=== PATIENT | male | born 1960 | race Caucasian/White ===

== ENCOUNTER 2024-07-13 06:17 | Day surgery (SDC) | payer OTHER, SELFPAY ==
[2024-07-13] VITALS (15 sets, daily range): BP systolic 107–124; BP diastolic 76–92; BMI 27.3
[2024-07-13] MEDS: LOW STRENGTH ASPIRIN 81 MG PO (06:49)
[2024-07-13] MEDS: NSS 259 ML IV (07:25)
--- NOTE | 2024-07-13 16:04 | ITS.CL.CATH ---
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
Cardiac Catheterization
Procedure Report:
LEFT AND RIGHT HEART CATHETERIZATION
Date of Procedure: July 13, 2024
Referring: Jas Mccoy
PROCEDURES:
1. Left heart catheterization, coronary angiogram.
2. Right heart catheterization.
3. Ultrasound-guided access
INDICATION: Assess invasive hemodynamics and rule out obstructive CAD prior to mitral valve intervention.
ACCESS:
1. Right radial artery, 6 Pakistani sheath, under ultrasound guidance.
2. Right common femoral vein, 6 Pakistani sheath, under ultrasound guidance using a micropuncture kit.
Ultrasound was utilized for vascular access. The radial artery and femoral vein were visualized under ultrasound, and the vessels were patent and artery was pulsatile. An image was stored permanently in the patient's medical record. Under direct
ultrasound guidance, a 6 Pakistani sheath was inserted into the artery and vein using a micropuncture kit through a modified Seldinger technique.
HEMODYNAMICS : (mmHg)
RA (m) : 11
RV (s/d,m) : 36/7, 13
PA (s/d, m) : 40/23, 29
PCWP (m) : 23 with V waves up to 40mmHg
PA saturation: 68.3% on room air
AO saturation: 95.0% on room air
RA saturation: 64.9% on room air
Cardiac Output : 4.8 L/min
Cardiac Index : 2.35 L/min/m-2
Systemic vascular resistance: 1266 dsc^(-5)
Pulmonary vascular resistance: 1.25 riley unit
AO (s/d) : 102/79
LV (s/d) : 104/10
LVEDP : 15
CORONARY FINDINGS
DOMINANCE: Right
LEFT MAIN: Left main artery is a large-caliber short vessel which gives rise to the left anterior descending artery and the left circumflex artery. There is minimal luminal irregularities.
LEFT ANTERIOR DESCENDING: The left anterior descending artery is a large-caliber vessel which gives rise to multiple small to medium caliber diagonal branches as it courses to the anterior interventricular groove and wraps around the apex. There is
minimal luminal irregularities.
CIRCUMFLEX: The left circumflex artery is a medium to large caliber vessel which gives rise to 1 large caliber branching obtuse marginal branch. There is minimal luminal irregularities.
RIGHT CORONARY ARTERY: The right coronary artery is a large-caliber, dominant vessel which gives rise to the right posterior descending artery and the right posterolateral system. There is minimal luminal irregularities.
SEDATION: 43 minutes of procedural sedation was utilized. An independent medical coordinator pesticide use was present to assist with and help manage the patient's level of consciousness and physiologic status.
RADIATION SUMMARY: Fluoro Time (min): 2.5, Dose (mGy): 235.01, DAP (Gy.cm2) : 19.4
Closure Device: 1. Vascular band over right radial artery, 11 cc of air.
2. Manual pressure was held over the right femoral venous access site with successful hemostasis.
CONCLUSIONS
1. No obstructive coronary artery disease.
2. Mildly elevated right left-sided filling pressures with normal cardiac output.
RECOMMENDATIONS
1. Wean radioman per protocol
2. Continued optimization of cardiovascular risk factors.
3. Patient is scheduled to proceed with mitral valve intervention with CT surgery later this month.
Copy to: Jordy Jurado
Etta Bautista MD, FACC, [facility]
== END 2024-07-13 12:00 | disposition home or self-care (01) ==
LOC: CATH 06:17
PROVIDERS: ATTENDING PHYSICIAN Internal Medicine Interventional Cardiology; FAMILY PHYSICIAN Family Medicine; OTHER PHYSICIAN Internal Medicine Cardiovascular Disease
DX: R06.02 Shortness of breath (principal); I34.0 Nonrheumatic mitral (valve) insufficiency; I34.1 Nonrheumatic mitral (valve) prolapse; E03.9 Hypothyroidism, unspecified; I48.0 Paroxysmal atrial fibrillation; Z79.890 Hormone replacement therapy; Z79.899 Other long term (current) drug therapy
CPT/HCPCS: 99152; 99153; 76937; 93005; 93460; C1894; Q9967

== ENCOUNTER → 2024-07-20 15:03 | Outpatient (REF) | payer OTHER, SELFPAY | LOC: RAD 15:03 | PROVIDERS: ATTENDING PHYSICIAN Thoracic Surgery (Cardiothoracic Vascular Surgery); FAMILY PHYSICIAN Family Medicine | DX: I34.0 Nonrheumatic mitral (valve) insufficiency (principal); Z01.810 Encounter for preprocedural cardiovascular examination | CPT/HCPCS: 71275; 74174; Q9967 ==

== ENCOUNTER 2024-07-24 05:03 | Inpatient (IN) | payer OTHER, SELFPAY ==
[2024-07-11 08:10] VITALS: BMI 29.9
[2024-07-11 08:44] LABS: Urine Albumin 1+ (Neg - Trace); Urine Bilirubin Negative (Negative); Urine Character Clear (Clear); Urine Color Yellow; Urine Glucose Negative (Negative); Urine Ketone Negative (Negative); Urine Leukocyte Negative (Negative); Urine Nitrite Negative (Negative); Urine Occult Blood Negative (Negative); Urine Specific Gravity 1.025 (<1.030); Urine Urobilinogen Negative (Neg - 1+)
[2024-07-11 08:51] LABS: PT 14.7 Sec (11.4-14.6)
[2024-07-11 08:52] LABS: APTT 33.2 Sec (23.4-35.0)
[2024-07-11 09:08] LABS: ALT (SGPT) 21 U/L (0-50); AST (SGOT) 21 U/L (17-59); Albumin 4.2 g/dl (3.5-5.0); Alkaline Phosphatase 66 U/L (38-126); Blood Urea Nitrogen 26 mg/dl (9-20); Carbon Dioxide 26 mmol/L (22-30); Chloride 104 mmol/L (98-107); Direct Bilirubin 0.2 mg/dl (0.0-0.4); Estimated Creatinine Clearance 82 ml/min; Glucose 108 mg/dl (70-99); Potassium 4.3 mmol/L (3.5-5.1); Sodium 138 mmol/L (135-145); Total Bilirubin 1.4 mg/dl (0.2-1.3); Total Protein 6.9 g/dl (6.3-8.2); eGFR > 60.00
[2024-07-11 09:09] LABS: Hematocrit 45.2 % (39.0-52.0); Hemoglobin 14.8 g/dL (13.0-18.0); Mean Corp Hgb Conc. 32.7 g/dL (33.0-37.0); Mean Corpuscular Hgb 27.6 pg (27.0-31.0); Mean Corpuscular Volume 84.3 fL (80.0-94.0); Mean Platelet Volume 10.3 fL (7.4-10.4); Platelet Count 209 10^3/uL (130-400); Red Blood Cell Count 5.36 10^6/uL (4.70-6.10); Red Cell Dist. Width 14.3 % (11.5-14.5); White Blood Cell Count 9.8 10^3/uL (4.8-10.8)
[2024-07-11 09:11] LABS: Urine Bacteria Few (Negative); Urine Red Blood Cell 0-2 /HPF (0-2); Urine Squamous Cell 0-2 /LPF (Few); Urine White Cell 0-2 /HPF (0-5)
--- NOTE | 2024-07-11 09:49 | CM ---
Chart reviewed. Met with the patient in PAT. Reviewed preoperative and postoperative instructions and restrictions, along with showering instructions. Gave patient 2 soaps. Patient is agreeable to a home visit by CT Transitional RN. Patient is
independent of ADLS, lives with his in a 2 STH, 1 YULIYA, 0 DME. Plan is for the patient to return home with CT Transitional RN.
[2024-07-11 10:11] LABS: % Basophils 0.5 % (0-2); % Eosinophils 1.8 % (0-6); % Immature Granulocytes 0.2 % (0-0.5); % Lymphocytes 60.7 % (20.5-51.1); % Monocytes 5.4 % (1.7-9.3); % Neutrophils 31.4 % (42.2-75.2); Absolute Basophils 0.1 10^3/uL (0-0.2); Absolute Eosinophils 0.2 10^3/uL (0-0.7); Absolute Monocytes 0.5 10^3/uL (0.1-0.6); Absolute Neutrophils 3.1 10^3/uL (1.4-6.5); Nucleated Red Blood Cells % 0 % (-)
[2024-07-11 10:43] LABS: Glycohemoglobin (HgbA1c) 5.5 % (4.0-5.6)
[2024-07-24] VITALS (13 sets, daily range): BP systolic 93–126; BP diastolic 54–75; BMI 29.1
[2024-07-24] MEDS: BACTROBAN 2% OINTMENT 1 APPLIC NASAL ×2 (05:43→19:02)
[2024-07-24] MEDS: LOPRESSOR 25 MG PO (05:43)
[2024-07-24] MEDS: PROTONIX 40 MG PO (05:43)
[2024-07-24] MEDS: MAGNESIUM OXIDE 500 MG PO (05:43)
--- NOTE | 2024-07-24 05:59 | PTCARENOTE ---
admitted pt innto [id number]. pt endorses 2 showers at home and NPO since midnight. full admission and med rec completed. pt clipped, washed with CHG. all questions answered. awaiting CVOR
--- NOTE | 2024-07-24 05:59 | W.CVOR.SURPR ---
CVOR Surgeon Immed Pre Op
-
I have examined this patient prior to performance of the scheduled procedure.
The patient's condition is unchanged from the time of the dictated/written History and
Physical and the patient is able to undergo the scheduled procedure.
HP MVr / TVr / MAZE / Clip
[2024-07-24 07:36] LABS: Urine Albumin Negative (Neg - Trace); Urine Bilirubin Negative (Negative); Urine Character Clear (Clear); Urine Color Yellow; Urine Glucose Negative (Negative); Urine Ketone Negative (Negative); Urine Leukocyte Negative (Negative); Urine Nitrite Negative (Negative); Urine Occult Blood Negative (Negative); Urine Specific Gravity 1.015 (<1.030); Urine Urobilinogen Negative (Neg - 1+)
[2024-07-24 07:38] LABS: ACT+ - POC 131 Seconds (82-134)
[2024-07-24 08:52] LABS: B.E. - POC -1.7 mmol/L; Glucose - POC 123 mg/dl (70-99); HCO3 - POC 24 mmol/L (21-28); Hematocrit - POC 40 % PCV (42-52); Hemodilution- POC No; Hemoglobin Calculated - POC 13.8; Ionized Calcium - POC 1.16 mmol/L (1.15-1.33); Lactate - POC 0.47 mmol/L (0.36-0.75); O2 Saturation %Calculated-POC 99.7 % (94-98); PCO2 - POC 41 mmHg (35-48); PO2 - POC 205 mmHg (83-108); POC Comment PRE; Potassium - POC 4.1 mmol/L (3.5-5.1); Sodium - POC 141 mmol/L (136-145); Specimen Type - POC Arterial; pH - POC 7.37 (7.35-7.45)
[2024-07-24 10:01] LABS: ACT+ - POC 882 Seconds (82-134)
[2024-07-24 10:10] LABS: B.E. - POC 2.8 mmol/L; Glucose - POC 159 mg/dl (70-99); HCO3 - POC 32 mmol/L (21-28); Hematocrit - POC 35 % PCV (42-52); Hemodilution- POC Yes; Hemoglobin Calculated - POC 11.8; Lactate - POC 0.69 mmol/L (0.36-0.75); O2 Saturation %Calculated-POC 99.7 % (94-98); PCO2 - POC 73 mmHg (35-48); PO2 - POC 240 mmHg (83-108); POC Comment CPB; Sodium - POC 139 mmol/L (136-145); Specimen Type - POC Arterial; pH - POC 7.25 (7.35-7.45)
[2024-07-24 10:27] LABS: ACT+ - POC 701 Seconds (82-134)
[2024-07-24 11:07] LABS: ACT+ - POC > 1003 Seconds (82-134)
[2024-07-24 11:07] LABS: ACT+ - POC > 1003 Seconds (82-134)
[2024-07-24 11:07] LABS: ACT+ - POC 537 Seconds (82-134)
[2024-07-24 11:27] LABS: Glucose - POC 125 mg/dl (70-99); HCO3 - POC 22 mmol/L (21-28); Hematocrit - POC 34 % PCV (42-52); Hemodilution- POC Yes; Hemoglobin Calculated - POC 11.5; Ionized Calcium - POC 1.03 mmol/L (1.15-1.33); Lactate - POC 2.06 mmol/L (0.36-0.75); O2 Saturation %Calculated-POC 99.8 % (94-98); PCO2 - POC 38 mmHg (35-48); PO2 - POC 237 mmHg (83-108); POC Comment WARM; Potassium - POC 5.7 mmol/L (3.5-5.1); Sodium - POC 141 mmol/L (136-145); Specimen Type - POC Arterial; pH - POC 7.37 (7.35-7.45)
[2024-07-24 11:48] LABS: ACT+ - POC 129 Seconds (82-134)
--- NOTE | 2024-07-24 11:50 | W.PN.CT.SURG ---
CT Surgery Operative Note
-
CARDIAC SURGERY OPERATIVE REPORT
Preoperative Diagnosis: Severe mitral valve insufficiency symptomatic with paroxysmal atrial fibrillation
Postoperative Diagnosis: Same
Procedure(s) Performed:
1. Right mini thoracotomy with right femoral artery and vein cannulation under JJ guidance
2. Radical mitral valve repair (imbrication of P2 onto P1 on cleft closure/free margin remodeling at P2 and P3 with placement of 2 [place]-Zechariah cords and a 34 mm band annuloplasty)
3. Simple tricuspid valve repair [30 mm band annuloplasty
4. Modified left atrial maze, open surgical using cryo
5. Left atrial appendage exclusion [35 mm clip]
6. Placement temporary ventricular pacing wires
7. Trans esophageal echocardiography
Date of Surgery: 07/24/2024
Comorbidities:
1. 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
2. Moderate tricuspid valve insufficiency due to annular dilatation
3. Paroxysmal atrial fibrillation
4. BPH
5. Hypothyroidism
6. Thyroid cancer status post thyroidectomy
7. GERD
Attending Surgeon: Jordy Corley MD, MS
Assistants: Jordy Ko PA-C (present and necessary for retraction, suctioning, exposure, suture management, wound closure, etc. under my direction)
Anesthesiology: Avinash Stovall MD and Cesar Boo CRNA
Scrub and Circulating RNs: Sha Jordan RN, Joan Guan RN
Welder First Class: Yousuf Alvarado CCP
Anesthesia: GETA
EBL: per perfusion records
Products: none
CPB Time: 162 minutes
Aortic Cross Clamp Time: 130 minutes
Indication(s) for Procedures: This is a 63-year-old male who is otherwise healthy who came to me as a second opinion from [facility]. He has severe mitral valve insufficiency secondary to degenerative disease with a flail segment of P2 and
multiple torn cords. He had torrential mitral valve insufficiency and was symptomatic in the form of shortness of breath. He also was diagnosed with paroxysmal atrial fibrillation approximately 4 to 5 years ago and had secondary tricuspid valve
insufficiency due to annular dilatation. Given the symptoms, mildly dilated LV, atrial fibrillation, he met class I indication for mitral valve repair.
Mitral Valve Description: Flail segment of the P2 scallop favoring P1 side, large cleft between P1 and P2 and P2 and P3, multiple torn cords with prolapsing of P2 scallop thickening of the leaflets towards P2 and P1, asymmetrical annular dilatation.
Implants:
1. 34 mm Oropeza annuloplasty band, physio flex, serial #[id number]
2. 30 mm Medtronic Triad tricuspid band, serial number [id number]
3. 35 mm left atrial appendage clip, serial #[id number]
4. 2 pairs of CV 4 [place]-Zechariah sutures
5. Multiple 5-0 Prolene sutures
Specimen:
1. none
Findings: His left ventricular ejection fraction preoperatively was preserved at approximately 60% with no significant regional wall motion abnormalities. His LV was on the higher end of normal, his left atrium was severely dilated. Following
surgery his EF did decrease a little bit to approximately 50% with no new regional wall motion abnormalities. RV function was mildly depressed. His mitral valve had a very large flail segment of the entire P2 scallop with large clots on either
side. I imbricated P2 onto P1 and then did free margin remodeling of P2 onto P3 1 set of CV 4 [place]-Zechariah cord was placed onto the anterior lateral papillary muscle heads and another set was placed onto the posterior medial papillary muscle head and
this was used to anchor the P2 scallop into place. A total of 10 nonpledgeted 2 Ethibond sutures were placed from trigone to trigone securing a 34 mm band annuloplasty. Dynamic inflation of the LV demonstrated a posterior coaptation margin and
good competency of the valve. A full left atrial maze was performed using cryo to isolate the entire posterior wall, performed the left atrial appendage lesion and the coronary sinus and mitral annular overlapping lesions. The left atrial
appendage was verified to be free of any thrombus or debris preoperatively and was clipped through the transverse sinus using a 35 mm device. Visualization inside the GAVI demonstrated good occlusion of the left atrial appendage. The tricuspid
valve was repaired with simple band annuloplasty using a total of 9 nonpledgeted 2 Ethibond sutures starting at the midpoint of the septal leaflet going counterclockwise towards the anterior septal commissure. There is no residual cuspid valve
insufficiency. There is no residual mitral valve insufficiency coming off of cardiopulmonary bypass. There was a mean gradient of 1 across the valve and no systolic anterior motion of the leaflets. He was placed on 3-5 of dobutamine drip, did not
require any blood products cardiac index varied between 2.1 and 2.9.
Description of Procedure: The patient was brought to the operating room and placed supine in the table with their right side bumped up and right arm down. Arterial and central access was performed by anesthesiology. The patient was prepped from chin
to toes in the typical sterile fashion. Trans esophageal evaluation of cardiac function and all valvular structures was conducted. Before commencing, a time out was performed by all members of the team. All were in agreement with the procedure and
laterality and I proceeded. A small right groin incision was made to expose the common femoral artery and vein. A total of 50,000 units of heparin was given. A 5-6 cm right lateral thoracotomy was performed over the 4th intercostal space verified by
visualization of the hilum. The common femoral artery and vein were cannulated under transesophageal guidance using open Seldinger technique. The arterial line was verified to have an appropriate bounce and pressure correlating with testing. Once
the ACT was above 400, retrograde autologous priming was done and we commenced cardiopulmonary bypass. Target core temperature was 34�C.
Carbon dioxide was used to flood the field. The course of the phrenic nerve was identified to prevent injury. The pericardium was opened and two stay sutures were placed to facilitate a ``pericardial table.�� The oblique sinus was developed followed
by the inter atrial groove. An antegrade root vent was inserted and secured with a pursestring suture. The pump flow and mean arterial pressure were lowered and an aortic cross clamp was applied to the ascending aorta. A total of 1.2L initial dose
of Antegrade cardioplegia was delivered. We had rapid electro myocardial quiescence at 300 cc of cardioplegia. The ventricle was monitored for distension by echocardiogram during this time. The left atrium was incised and enlarged. A left atrial
lift retractor was placed. The mitral valve was inspected. Cryo lines were then performed starting at the coronary sinus then the annular overlapping mitral line followed by the roof and floor connecting it to the left atrial appendage os. The
mitral valve was repaired as described above. The left atrial lift was then removed and the left atrial appendage was clipped through the transverse sinus and then verified to be occlusive looking inside the left atrium. The left atriotomy was
closed with 3-0 prolene in a running fashion leaving a ventricular vent in place to de-air. After filling the heart, the vent was removed and the prolene was secured with a corknot. Vesseloops were then placed around the SVC and IVC and the femoral
venous cannula was then pulled back into the IVC. Eyedrops echo was placed up into the SVC and the snare was then encircled. Horizontal right atriotomy was then performed and a new right atrial lift was placed exposing the tricuspid valve.
Tricuspid valve was then repaired as described above using a simple annuloplasty. The right atriotomy was then closed in 2 layers with 5-0 Prolene and secured with a micro core knot. The snares were then released on the SVC and IVC. Unipolar
ventricular pacing wire was placed on the base of the right ventricle. The patient was placed into Trendelenburg position and pump flows were lowered. The clamp was slowly removed with the root vent turned on. De-airing maneuvers were performed. We
started to rewarm with a target of 36.5�C.
As the heart recovered, the mitral valve and ventricular function were assessed under transesophageal echocardiogram. The LV vent and root vents were removed. Once weaning parameters were satisfactory, cardiopulmonary bypass flow was lowered until
we were off cardiopulmonary bypass the mitral valve was inspected again. All surgical sites were inspected for hemostasis and appeared appropriate. The lines were clamped and the arterial was relocated to the venous cannula to give back volume. A
test dose of protamine was delivered and patient was monitored for any adverse reactions followed by complete protamine dosing. The femoral vessels were decannulated and repaired as indicated. The pericardium was approximated with 2-0 ethibond
sutures secured with corknots. One 19F Lanre drain remained in the pleural space and threaded into the oblique sinus of the pericardium. There was an excellent palpable distal to the POKER IN cannulation site. Local analgesia was injected to the
thoracotomy. The rib space was approximated with #2 ethibond suture. The incision was closed in layers in a running fashion.
All instrument, sponge, and needle counts were confirmed to be correct x 2 at the end of the operation. The patient was transferred to the cardiac intensive care unit in critical but stable condition.
I, Dr. Jordy Corley, was present, scrubbed for, and performed all critical elements of this procedure.
Jordy Corley MD, MS
Cardiothoracic Surgeon
[facility]
This dictation was created using the Blockchain dictation system. Please excuse any grammatical, typographical, or 'sound alike' errors
[2024-07-24] MEDS: NEURONTIN PO ×2 (11:58→15:23)
--- NOTE | 2024-07-24 11:58 | CON.INTV ---
Consultation
Consultation Request
Date/Time Consultation Requested: 07/24/2024 - 112
Date/Time Consultation Performed: 07/24/2024 - 1157
Requesting Provider: Fang Cordero PA-C
Performing Provider: Dr. Streeter
Reason for Consultation: s/p radical MV repair + LA-MAZE
Medical History
-
Chief Complaint: Elective MV + TV repair
History of Present Illness:
63-year-old male non-smoker with a past medical history of nonrheumatic mitral valve + tricuspid valve regurgitation. Patient known to the cardiothoracic surgery service with last visit on 07/02/[address] Corley. He had gone to see us here at
after having seen the doctors at [facility]. JJ in April 2024 shows a very large prolapsed segment at the posterior MV leaflet with a suspected flail segment and a large regurgitant jet originating mostly from the P1 P2 scallops, with a
dilated LA and moderate degree of tricuspid valve insufficiency. He was diagnosed with paroxysmal A-fib about 4-5 years ago and was never placed on AC. He did undergo a left heart catheterization on 07/13/2024 showing no evidence of obstructive
coronary artery disease with mildly elevated eft-sided filling pressures with normal cardiac output (LVEDP: 15 mmHg). Risks and benefits of a cardiothoracic intervention were discussed and the patient has agreed to an intervention. Today he
underwent a right minithoracotomy with a radical mitral valve repair, simple tricuspid valve repair, modified left atrial Maze procedure and a left atrial appendage exclusion with a 35mm clip. There were no immediate complications and he was
transferred to the CVICU for postoperative care with purchasing engineer services consulted for additional recommendations/management.
When I saw the patient he was intubated on SIMV at 14/550/40%/8, with PSV of 5. PIP was 24 cmH2O, VTe 551 mL and breathing at 14 breaths/min. Currently on dobutamine drip at 3 mcg/kg/min, and insulin drip at 0.8 units/hr. He has a mediastinal
chest tube x 1. Heart rate 55, BP via NIBP: 103/71, BP via A-line: 116/65, PAP: 42/20, saturating 98% and CO/CI: 4.05/2.01.
PMHx: Hypothyroidism, enlarged prostate, mitral valve regurgitation, GERD, history of thyroid cancer s/p resection, A-fib on flecainide
PSHx: Right shoulder tear surgery, UroLift (2022), thyroid cancer surgery
Past Medical History
Past Medical History: Other (Above as per HPI)
Past Surgical History: Other (Above as per HPI)
Social History
Tobacco: Non-smoker
Alcohol: None
Drug: None
Personal:
Living: With Family
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
Family History
Family History: Cancer (Father + mother) and Diabetes (Sibling)
Allergies / Home Medications
Allergies
Allergy/AdvReac Type Severity Reaction Status Date / Time
No Known Allergies Allergy Verified 07/06/24 14:15
Home Medications
�Medication �Instructions �Recorded �Confirmed �Last Taken �Type
levothyroxine 100 mcg tablet 100 mcg PO DAILY Thyroid 01/30/10 07/24/24 07/23/24 08:00 History
(Synthroid)
aspirin 81 mg tablet,delayed 81 mg PO DAILY Blood Clot 03/30/23 07/24/24 07/23/24 08:00 History
release Prevention/Tx
flecainide 50 mg tablet 50 mg PO BID Heart 03/30/23 07/24/24 07/23/24 18:00 History
Disease/Condition
ibuprofen 600 mg tablet 600 mg PO DAILY Pain 03/30/23 07/24/24 07/21/24 08:00 History
psyllium husk 0.4 gram capsule 0.4 g PO BID Constipation 03/30/23 07/24/24 07/23/24 18:00 History
(Metamucil)
alfuzosin 10 mg tablet,extended 10 mg PO DAILY Urinary Issue 07/06/24 07/24/24 07/23/24 18:00 History
release 24 hr
finasteride 5 mg tablet 5 mg PO DAILY Urinary Issue 07/13/24 07/24/24 07/21/24 History
0800
Review of Systems
-
Unable to Obtain full review of systems at this time due to: Patient Intubation
Vitals / Labs / Diagnostic Testing
Vital Signs
Temp Pulse Resp BP Pulse Ox
98.0 F 53 15 111/74 98
07/24/24 17:00 07/24/24 17:05 07/24/24 17:05 07/24/24 17:02 07/24/24 17:05
Lab Data
07/24/24 16:00
07/24/24 12:11
Laboratory Results
07/24/24 07/24/24
12:11 16:30
PT 18.3 H
INR 1.49
APTT 32.0
pH 7.33 L Cancelled
pCO2 45 Cancelled
pO2 73 L Cancelled
HCO3 23.7 Cancelled
O2 Delivery Level Cancelled
Diagnostic Testing:
Physical Exam
-
HEENT: Normocephalic, Anicteric and Other (ETT in place)
Cardiovascular: S1/S2 and Peripheral Edema (negative)
Respiratory: Wheeze (negative), Rales (negative), Rhonchi (negative), Non-Labored Respirations and Other (Mechanical breath sounds heard bilaterally)
GI: Soft, Non Distended, Non Tender and Normal Bowel Sounds
Skin: Other (Linear incision seen across right lateral chest wall with no exsanguination)
General: Respiratory Distress (negative), Comfortable, Chills (negative) and Sweats (negative)
Assessment
-
Assessment: 63-year-old male non-smoker with a past medical history of nonrheumatic mitral valve + tricuspid valve regurgitation. Patient known to the cardiothoracic surgery service with last visit on 07/02/[address] Corley. He had gone to see us
here at after having seen the doctors at [facility]. JJ in April 2024 shows a very large prolapsed segment at the posterior MV leaflet with a suspected flail segment and a large regurgitant jet originating mostly from the P1 P2
scallops, with a dilated LA and moderate degree of tricuspid valve insufficiency. He was diagnosed with paroxysmal A-fib about 4-5 years ago and was never placed on AC. He did undergo a left heart catheterization on 07/13/2024 showing no evidence
of obstructive coronary artery disease with mildly elevated eft-sided filling pressures with normal cardiac output (LVEDP: 15 mmHg). Risks and benefits of a cardiothoracic intervention were discussed and the patient has agreed to an intervention.
On 07/24/2024 he underwent a right minithoracotomy with a radical mitral valve repair, simple tricuspid valve repair, modified left atrial Maze procedure and a left atrial appendage exclusion with a 35mm clip. There were no immediate complications
and he was transferred to the CVICU for postoperative care with purchasing engineer services consulted for additional recommendations/management.
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
Impression:
#Severe mitral valve insufficiency with paroxysmal atrial fibrillation s/p right minithoracotomy with radical mitral valve repair (POD #0)
#Moderate tricuspid valve regurgitation s/p simple tricuspid valve repair with 30 mm band annuloplasty (POD #0)
#Paroxysmal A-fib not on AC s/p modified left atrial maze cryo + left atrial appendage exclusion with 35mm clip placement (POD#0)
#Acute anemia due to above
#Acute thrombocytopenia due to above
#History of thyroid cancer s/p resection
#GERD
#Enlarged prostate
#Hypothyroidism
Plan:
Ventilator settings reviewed
FiO2 will be weaned to maintain SpO2 >90-94%
Minute ventilation will be adjusted
Arterial blood gases will be monitored
Spontaneous breathing trial will be attempted with hopeful extubation after anesthesia/sedation wear off
prn nebulized bronchodilators - not currently bronchospastic
Pulmonary artery catheter parameters will be followed
Pressors/antihypertensive/inotropes/diuretics will be provided as needed
Maintain MAP>65
Replete electrolytes with K>4, Mg>2
Monitor chest tube output (mediastinal chest tube x 1)
Monitor hemoglobin
Monitor platelet count and coags
Transfuse blood products as needed to maintain Hb>7g/dL, plt>50k (given post-operative status)
CT surgery managing chest tubes
Monitor blood sugar to maintain euglycemia with goal BG 110-140
Insulin drip per protocol
Aspiration precautions
VAP prevention protocol
DVT prophylaxis
Early nutrition
Early mobilization
Critical care statement: A total of 41 minutes of critical care time was provided for this patient today. This includes management of ventilator, spontaneous breathing trial, arterial blood gases, pressors, of unstable vital signs, evaluation of the
patient at bedside, reviewing the patient's pertinent medical records including radiographs, microbiology, laboratory evaluations, and discussion with primary team and critical care nursing.
[2024-07-24] MEDS: SYNTHROID PO (11:59)
[2024-07-24] MEDS: PROSCAR PO (11:59)
[2024-07-24 12:05] LABS: B.E. - POC -2.8 mmol/L; Glucose - POC 96 mg/dl (70-99); HCO3 - POC 23 mmol/L (21-28); Hematocrit - POC 35 % PCV (42-52); Hemodilution- POC Yes; Hemoglobin Calculated - POC 11.8; Ionized Calcium - POC 1.27 mmol/L (1.15-1.33); Lactate - POC 2.21 mmol/L (0.36-0.75); O2 Saturation %Calculated-POC 97.9 % (94-98); PCO2 - POC 40 mmHg (35-48); PO2 - POC 106 mmHg (83-108); POC Comment POST; Potassium - POC 4.3 mmol/L (3.5-5.1); Sodium - POC 145 mmol/L (136-145); Specimen Type - POC Arterial; pH - POC 7.36 (7.35-7.45)
--- NOTE | 2024-07-24 12:14 | CM ---
pt in OR today, cm to follow
[2024-07-24 12:17] LABS: Glucose - Point of Care 109 mg/dl (70-99)
[2024-07-24 12:23] LABS: B.E. - POC 0.3 mmol/L; Glucose - POC 169 mg/dl (70-99); HCO3 - POC 23 mmol/L (21-28); Hematocrit - POC 32 % PCV (42-52); Hemodilution- POC Yes; Ionized Calcium - POC 0.99 mmol/L (1.15-1.33); Lactate - POC < 0.30 mmol/L (0.36-0.75); PCO2 - POC 30 mmHg (35-48); PO2 - POC 354 mmHg (83-108); POC Comment CPB; Potassium - POC 5.4 mmol/L (3.5-5.1); Sodium - POC 140 mmol/L (136-145); Specimen Type - POC Arterial
[2024-07-24 12:23] LABS: Glucose - POC 133 mg/dl (70-99); HCO3 - POC 26 mmol/L (21-28); Hematocrit - POC 32 % PCV (42-52); Hemodilution- POC Yes; Hemoglobin Calculated - POC 10.8; Ionized Calcium - POC 1.04 mmol/L (1.15-1.33); Lactate - POC < 0.30 mmol/L (0.36-0.75); O2 Saturation %Calculated-POC 99.9 % (94-98); PCO2 - POC 50 mmHg (35-48); PO2 - POC 370 mmHg (83-108); POC Comment CPB; Potassium - POC 5.3 mmol/L (3.5-5.1); Sodium - POC 139 mmol/L (136-145); Specimen Type - POC Arterial; pH - POC 7.33 (7.35-7.45)
[2024-07-24 12:31] LABS: B.E. -2.4 mmol/L; HCO3 23.7 mmol/L (21-28); Ionized Calcium 1.24 mMOL/L (1.15-1.33); O2 Saturation % 95.7 % (94-98); PCO2 45 mmHg (35-48); PO2 73 mmHg (83-108); Potassium 4.3 mMOL/L (3.5-5.1); Sodium 135 mMOL/L (136-145); pH 7.33 (7.35-7.45)
[2024-07-24 12:36] LABS: Mixed Venous O2 Saturation 72.7 %
[2024-07-24 12:40] LABS: Hematocrit 37.7 % (39.0-52.0); Hemoglobin 12.5 g/dL (13.0-18.0); Platelet Count 111 10^3/uL (130-400)
[2024-07-24 12:41] LABS: INR 1.49; PT 18.3 Sec (11.4-14.6)
[2024-07-24] MEDS: LR 250 ML IV (12:47)
[2024-07-24] MEDS: NSS 500 IV (12:47)
[2024-07-24] MEDS: ANCEF 10 IV ×2 (12:47→12:48)
[2024-07-24 12:52] LABS: Blood Urea Nitrogen 25 mg/dl (9-20); Estimated Creatinine Clearance 67 ml/min; Glucose 104 mg/dl (70-99)
--- NOTE | 2024-07-24 13:03 | W.PN.CARDCBS ---
Addendum entered and electronically signed by Mt Romero, 07/24/24 21:04:
I saw and examined the patient.
The Script Coordinator's note was reviewed and I agree with the note.
Comment:
Plan:
-s/p radical MV repair, mod TR s/ simple TV repair, MAZE, GAVI clip via R mini thoracotomy 07/24/24
Vent wean per protocol.
Wean Dobutamine
Compensated cv status
Monitor on tele, was on flecainide for hx PAF preop and was not on OAC preop due to low [id number] score; had been on ASA
Discussed with nursing.
Original Note:
Today's Communication / Plan
-
continue post op care
Impression / Plan
-
Primary Senior Interior Designer: Dr. Mccoy
Assessment:
Severe MR with prolapse and flail leaflets/multiple torn chords at P2 s/p radical MV repair, mod TR s/ simple TV repair, MAZE, GAVI clip via R mini thoracotomy 07/24/24
Paroxysmal atrial fibrillation
Flecainide therapy
BPH
Thyroid cancer s/p thyroidectomy
Hypothyroidism
GERD
Plan:
-s/p radical MV repair, mod TR s/ simple TV repair, MAZE, GAVI clip via R mini thoracotomy 07/24/24
-remains intubated, sedated. on patricia hugger
-on dobutamine @3 as RV was sluggish appearing intraop. 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
-CI 1.89
-EKG junctional rhythm. follow on tele. has v wire in place
-hgb 12.5, plts 111K
-plan to continue preadmission flecainide as with history of PAF. was not on OAC preop due to low [id number] score, was on asa
-continue post op care
-d/w nursing
Progress Note - Senior Interior Designer
Subjective
Date of Service: July 24, 2024
intubated, sedated
Objective
Labs:
07/24/24 12:11
Labs
Hgb 12.5 g/dL (13.0-18.0) L 07/24/24 12:11
Hct 37.7 % (39.0-52.0) L 07/24/24 12:11
Plt Count 111 10^3/uL (130-400) L 07/24/24 12:11
PT 14.7 Sec (11.4-14.6) H 07/11/24 08:19
INR 1.10 07/11/24 08:19
APTT 33.2 Sec (23.4-35.0) 07/11/24 08:19
Sodium 138 mmol/L (135-145) 07/11/24 08:19
Potassium 4.3 mmol/L (3.5-5.1) 07/11/24 08:19
BUN 25 mg/dl (9-20) H 07/24/24 12:11
Creatinine 1.1 mg/dL (0.7-1.3) 07/24/24 12:11
Glucose 104 mg/dl (70-99) H 07/24/24 12:11
Vital Signs and I&O:
Vital Signs
Temp Pulse Resp BP Pulse Ox
96.1 F L 50 0 93/54 94
07/24/24 12:10 07/24/24 12:40 07/24/24 12:40 07/24/24 12:16 07/24/24 12:40
Vital Signs
Temp Pulse Resp BP Pulse Ox
96.1 F L 50 0 93/54 94
07/24/24 12:10 07/24/24 12:40 07/24/24 12:40 07/24/24 12:16 07/24/24 12:40
Intake & Output
07/22/24 07/23/24 07/24/24 07/25/24
07:59 07:59 07:59 07:59
Intake Total 76.2 / 76.2
Output Total 75 / 75
Balance 1.2 / .2
Physical Exam
Physical Exam
GEN: No distress, intubated, sedated. on patricia hugger
HEENT: supple, mmm
LUNGS: CTA B/L, no wheezes
CV: Reg, S1/S2, no murmur
ABD: soft, ND
EXT: No cyanosis, clubbing, edema
NEURO: sedated
SKIN: Warm, pink, dry. No rash. R chest dressing c/d/i.
[2024-07-24 13:05] LABS: Glucose - Point of Care 146 mg/dl (70-99)
--- NOTE | 2024-07-24 13:33 | PTCARENOTE ---
Patient received from CVOR at 1210; Sedated and intubated; Junctional rhythm on monitor; VSS; Epicardial V-wire present and insulated, temporary pacemaker settings VVI 40/10/0.8; +2 DP and radial pulses present; Lungs diminished at bases; ETT size 8
positioned and secured at 24 cm right lip; Ventilator settings SIMV 12/550/5/5 FiO2 40%; CTx1 to -20 cm wall suction draining bloody drainage - no air leak, tidaling, or crepitus noted; Hypoactive BS; Saleem catheter in place draining clear, yellow
urine; Right groin puncture site glued, approximated, and ecchymotic - CDI, right groin incision glued, approximated, and ecchymotic - CDI, right lateral chest incision glued, approximated, and ecchymotic - CDI, and right lateral chest puncture
glued, approximated, and ecchymotic - CDI; A-line in right radial artery, Maxi floated to 48 cm in RIJ Cordis - all lines zeroed and level; PIVx1 #18 right hand; Levo/insulin/precedex/dobutamine/cardene infusing; LR Bolus given x1; CVNP Joan C.
notified and aware regarding CI <2; See nursing flowsheets for further details.
CO: 3.80
CI: 1.89
SVR: 1,115
[2024-07-24 14:04] LABS: Glucose - Point of Care 91 mg/dl (70-99)
[2024-07-24] MEDS: VENTOLIN NEBULES 2.5 MG INH (14:18)
--- NOTE | 2024-07-24 14:30 | PTCARENOTE ---
SpO2 dropping to 89-92%; CVNP Joan C. notified and aware - PEEP increased to 8 and nebulizer treatment given by RT; SpO2 now 96-98%
--- NOTE | 2024-07-24 14:39 | W.PN.UPDATE ---
Update Note
Progress Note Update
IV fluids: 1000
Crystalloid: 1000
U.O.: 700
UF: 900
Blood: None
Wires: V
Inotropes: Dobutamine
Pressors: levophed
Sedatives: precedex
NEURO: sedated on precedex, pupils +1mm B/L
RESP: #8OT @25cm> 12/550/40/5 Lungs clear B/L. 2 mediastinal (0cc on arrival) chest tubes to -20cm suction. Sanguineous drainage
CV: RRR +S1, S2, no S3, no rub, no murmur. Dermabond to median sternotomy. RIJ w/[place] locked @ 50cm.
ABD: round, soft, no BS
EXT: no edema, +2/4 DP pulses B/L, no femoral bruit, left radial A-line intact
: Saleem with clear yellow urine
A/P: POD #0 s/p Radical mitral valve repair (imbrication of P2 onto P1 on cleft closure/free margin remodeling at P2 and P3 with placement of 2 [place] cords and a 34 mm band annuloplasty)
JJ: EF approximately 50% with mild global hypokinesis.
- wean and extubate
- Monitor CT and urine output
- Follow up labs and CXR
- Wean levophed for maps >65/SBP goal 90-130
- Continue Dobutamine
- Will start ASA tonight
- Did not receive amio bolus intraop; will continue flecanide.
- EKG pending and will send to cards
- Cards consulted
# acute surgical blood loss anemia-expected
- trend CBC
# Hyperglycemia
- insulin infusion x 24h
# Hyperlipidemia
- resume statin when tolerating PO
[2024-07-24] MEDS: TYLENOL PO (14:54)
[2024-07-24 15:04] LABS: Glucose - Point of Care 95 mg/dl (70-99)
[2024-07-24 16:06] LABS: Glucose - Point of Care 102 mg/dl (70-99)
--- NOTE | 2024-07-24 16:10 | PTCARENOTE ---
RT in room and pt placed on CPAP trial at 1600. ABG's due at 1630
[2024-07-24 16:12] LABS: Hematocrit 38.6 % (39.0-52.0); Hemoglobin 12.9 g/dL (13.0-18.0); Platelet Count 120 10^3/uL (130-400)
[2024-07-24 16:32] LABS: B.E. - POC -1.1 mmol/L; Blood Urea Nitrogen - POC 25 mg/dl (3-120); Chloride - POC 110 mmol/L (96-111); Creatinine - POC 1.14 mg/dl (0.3-1.0); Glucose - POC 130 mg/dl (70-99); HCO3 - POC 24 mmol/L (21-28); Hematocrit - POC 40 % PCV (42-52); Hemodilution- POC Yes; Hemoglobin Calculated - POC 13.4; Ionized Calcium - POC 1.24 mmol/L (1.15-1.33); Lactate - POC 0.94 mmol/L (0.36-0.75); O2 Saturation %Calculated-POC 98.3 % (94-98); PCO2 - POC 40 mmHg (35-48); PO2 - POC 113 mmHg (83-108); Potassium - POC 4.7 mmol/L (3.5-5.1); Sodium - POC 143 mmol/L (136-145); Specimen Type - POC Arterial; pH - POC 7.38 (7.35-7.45)
--- NOTE | 2024-07-24 16:38 | PTCARENOTE ---
EPOC ABG reviewed with SANDER Guillen; RT at bedside; Patient extubated at 1635 and placed on 6L NC
[2024-07-24 17:05] LABS: Glucose - Point of Care 105 mg/dl (70-99)
[2024-07-24] MEDS: LOW STRENGTH ASPIRIN 81 MG PO (17:12)
[2024-07-24 18:08] LABS: Glucose - Point of Care 115 mg/dl (70-99)
[2024-07-24] MEDS: SENOKOT-S 1 TABLET PO (19:03)
[2024-07-24] MEDS: ANCEF 5 IV (19:03)
[2024-07-24] MEDS: DILAUDID 0.5 MG IV ×2 (19:09→23:40)
[2024-07-24 20:06] LABS: Glucose - Point of Care 75 mg/dl (70-99)
--- NOTE | 2024-07-24 20:15 | PTCARENOTE ---
LR bolus given x1; PO Flecainide placed on hold; PRN IV Dilaudid given accordingly for pain with good effect; Patient resting comfortably in bed
CO: 4.35
CI: 2.16
SVR: 1,195
[2024-07-24 21:05] LABS: Glucose - Point of Care 97 mg/dl (70-99)
[2024-07-24] MEDS: NEURONTIN 100 MG PO (21:08)
[2024-07-24] MEDS: TYLENOL 1000 MG PO (21:08)
[2024-07-24] MEDS: DILAUDID 0.25 MG IV (21:51)
[2024-07-24 22:02] LABS: Glucose - Point of Care 97 mg/dl (70-99)
[2024-07-24] MEDS: ROXICODONE 5 MG PO (22:08)
--- NOTE | 2024-07-24 23:00 | PTCARENOTE ---
report received from previous RN, walking rounds done. pt in bed, AAOx4, pt c/o pain at incision site. 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 VSS. junctional rhythm on monitor, HR 50s-60s. epicardial v-wire present and insulated. b/l radial and DP pulses
palpable. heart tones clear. right radial A-line intact. SBP 120s. RIJ cordis/swan intact w KVOs infusing. PAPs 40s/10s. CVP ~10-11. last CI 2.16. Dobut gtt infusing @ 3mcg. b/l breath sounds present and diminished at bases. POX 98% on 2LNC. CT x1
intact to -20 cm wall suction, drainage WNL, no air leak, tidaling, or crepitus present. hypoactive BS present. Insulin gtt infusing per glycemic protocol. gore catheter in place draining CYU, UO adequate. all surgical sites stable. see worklist
for full assessment, VS, and interventions. pt resting comfortably w call amaya in reach.
[2024-07-24 23:38] LABS: Glucose - Point of Care 98 mg/dl (70-99)
[2024-07-25] VITALS (27 sets, daily range): BP systolic 108–133; BP diastolic 50–75; PULSE 59; O2SAT 90; BMI 29.6
[2024-07-25 00:53] LABS: Glucose - Point of Care 100 mg/dl (70-99)
[2024-07-25 02:26] LABS: Glucose - Point of Care 102 mg/dl (70-99)
--- NOTE | 2024-07-25 03:00 | PTCARENOTE ---
no changes in assessment, VSS. pt AAOx4. junctional rhythm 60s. SBP 120s. last CI 2.87. Dobut gtt remains @ 3mcg. POX 98% on 2LNC. CT output and UO WNL. Insulin gtt maintained per protocol. all surgical sites stable. AM labs drawn and sent. pt
sleeping between care.
[2024-07-25 03:15] LABS: Hematocrit 36.7 % (39.0-52.0); Hemoglobin 12.1 g/dL (13.0-18.0); Mean Corpuscular Hgb 28.1 pg (27.0-31.0); Mean Corpuscular Volume 85.2 fL (80.0-94.0); Mean Platelet Volume 10.7 fL (7.4-10.4); Platelet Count 119 10^3/uL (130-400); Red Blood Cell Count 4.31 10^6/uL (4.70-6.10); White Blood Cell Count 16.9 10^3/uL (4.8-10.8)
[2024-07-25 03:21] LABS: Blood Urea Nitrogen 30 mg/dl (9-20); Carbon Dioxide 25 mmol/L (22-30); Chloride 112 mmol/L (98-107); Estimated Creatinine Clearance 73 ml/min; Glucose 106 mg/dl (70-99); Magnesium 2.1 mg/dl (1.6-2.3); Potassium 4.6 mmol/L (3.5-5.1); Sodium 140 mmol/L (135-145); eGFR > 60.00
[2024-07-25] MEDS: ANCEF 5 IV ×2 (04:18→12:02)
[2024-07-25 04:24] LABS: Glucose - Point of Care 96 mg/dl (70-99)
[2024-07-25] MEDS: DILAUDID 0.5 MG IV ×2 (04:37→20:30)
[2024-07-25] MEDS: ROXICODONE 5 MG PO ×4 (04:37→17:10)
--- NOTE | 2024-07-25 05:56 | W.PN.CT ---
Today's Communication / Plan
-
-NAEON
-hemodynamically stable - CI 2.87 - remains on 3
-junctional rhythm postoperatively, flecainide/amio/bb on hold
-UOP: 305ml 12hrs, 735ml 24hrs
-CT med: 90ml 12hrs, 200ml 24hrs
-encourage IS, chest PT, OOB
-PT/OT
-dispo planning
Assessment / Plan
-
s/p mini Thoracotomy, MV Repair with 34mm band, 2 [place]-chords, TV repair with 30mm band, MAZE, LAAE on 07/24/[address] Corley - POD #1
-severe MR with prolapse and flail leaflets/multiple torn chords at P2 s/p MV repair 07/24/24
-mod TR s/p TV repair
-p Afib on flecainide
-BPH
-hypothyroid
-GERD
-thyroid Ca s/p surgery 1992
-urolift 2022
Discussed patient care with: Care Team
Subjective
-
Date of Service: July 25, 2024
Objective Data
-
Lab Results
07/24/24 16:00
07/24/24 12:11
PT 18.3 Sec (11.4-14.6) H 07/24/24 12:11
INR 1.49 07/24/24 12:11
APTT 32.0 Sec (23.4-35.0) 07/24/24 12:11
Vital Signs
Vital Signs
Temp Pulse Resp BP Pulse Ox
97.6 F 53 14 110/70 98
07/24/24 21:00 07/24/24 21:00 07/24/24 21:00 07/24/24 21:00 07/24/24 21:00
CT Intake/Output/Weight
07/24/24 07/24/24 07/25/24
06:59 18:59 06:59
Intake Total 926.3 / 1059.4 133.1 / 1059.4
Output Total 540 / 680 140 / 680
Balance 386.3 / 379.4 -6.9 / 379.4
SaO2: 98
Physical Exam
-
General: Awake, Oriented and AOx3
Cardiovascular: Regular rate & rhythm
Respiratory: Clear and Equal
Sternum: Stable
Incision: Clean and Dry
Extremities: Edema +1
Data Reviewed
-
Lab Results: Results Reviewed
Medications: Active Meds Reviewed
Chest X-Ray: Image Reviewed
Vital Signs / Labs
-
Vital Signs and Labs:
Temp Pulse Resp BP Pulse Ox
97.5 F 66 12 121/66 97
07/25/24 04:00 07/25/24 04:15 07/25/24 04:15 07/25/24 04:00 07/25/24 04:15
07/25/24 02:26
07/25/24 02:26
07/24/24 07/24/24 07/24/24
07:38 08:22 08:24
WBC
RBC
Hgb
Hct
RDW
Plt Count
MPV
PT
pH
pO2
POC ABG O2 Sat (Calc) 99.7 H
Sodium
Chloride
BUN
Glucose
Calcium
Magnesium
POC pH
POC pO2 205 H
POC pCO2
POC HCO3
POC Glucose 123 H
POC Potassium
POC Ionized Calcium
POC Lactate
POC Creatinine
POC ACT+ > 1003 H
POC Hematocrit 40 L
Crossmatch IS Only See Detail
07/24/24 07/24/2425
08:51 09:01 09:42
WBC
RBC
Hgb
Hct
RDW
Plt Count
MPV
PT
pH
pO2
POC ABG O2 Sat (Calc) 99.9 H
Sodium
Chloride
BUN
Glucose
Calcium
Magnesium
POC pH 7.33 L
POC pO2 370 H
POC pCO2 50 H
POC HCO3
POC Glucose 133 H
POC Potassium 5.3 H
POC Ionized Calcium 1.04 L
POC Lactate < 0.30 L
POC Creatinine
POC ACT+ > 1003 H 882 H
POC Hematocrit 32 L
Crossmatch IS Only
07/24/24 07/24/24 07/24/24
09:46 10:12 10:15
WBC
RBC
Hgb
Hct
RDW
Plt Count
MPV
PT
pH
pO2
POC ABG O2 Sat (Calc) 99.7 H 100.0 H
Sodium
Chloride
BUN
Glucose
Calcium
Magnesium
POC pH 7.25 L 7.50 H
POC pO2 240 H 354 H
POC pCO2 73 H 30 L
POC HCO3 32 H
POC Glucose 159 H 169 H
POC Potassium 6.0 H 5.4 H
POC Ionized Calcium 1.10 L 0.99 L
POC Lactate < 0.30 L
POC Creatinine
POC ACT+ 701 H
POC Hematocrit 35 L 32 L
Crossmatch IS Only
07/24/24 07/24/24 07/24/24
10:56 11:45 12:11
WBC
RBC
Hgb 12.5 L
Hct 37.7 L
RDW
Plt Count 111 L
MPV
PT 18.3 H
pH 7.33 L
pO2 73 L
POC ABG O2 Sat (Calc) 99.8 H
Sodium 135 L
Chloride
BUN 25 H
Glucose 104 H
Calcium
Magnesium 3.0 H
POC pH
POC pO2 237 H
POC pCO2
POC HCO3
POC Glucose 125 H
POC Potassium 5.7 H
POC Ionized Calcium 1.03 L
POC Lactate 2.06 H 2.21 H
POC Creatinine
POC ACT+ 537 H
POC Hematocrit 34 L 35 L
Crossmatch IS Only
07/24/24 07/24/24 07/24/24
12:16 13:02 16:00
WBC
RBC
Hgb 12.9 L
Hct 38.6 L
RDW
Plt Count 120 L
MPV
PT
pH
pO2
POC ABG O2 Sat (Calc)
Sodium
Chloride
BUN
Glucose
Calcium
Magnesium
POC pH
POC pO2
POC pCO2
POC HCO3
POC Glucose 109 H 146 H 102 H
POC Potassium
POC Ionized Calcium
POC Lactate
POC Creatinine
POC ACT+
POC Hematocrit
Crossmatch IS Only
07/24/24 07/24/24 07/24/24
16:29 16:56 18:06
WBC
RBC
Hgb
Hct
RDW
Plt Count
MPV
PT
pH
pO2
POC ABG O2 Sat (Calc) 98.3 H
Sodium
Chloride
BUN
Glucose
Calcium
Magnesium
POC pH
POC pO2 113 H
POC pCO2
POC HCO3
POC Glucose 130 H 105 H 115 H
POC Potassium
POC Ionized Calcium
POC Lactate 0.94 H
POC Creatinine 1.14 H
POC ACT+
POC Hematocrit 40 L
Crossmatch IS Only
07/25/24 07/25/24 07/25/24
00:51 02:24 02:26
WBC 16.9 H
RBC 4.31 L
Hgb 12.1 L
Hct 36.7 L
RDW 15.0 H
Plt Count 119 L
MPV 10.7 H
PT
pH
pO2
POC ABG O2 Sat (Calc)
Sodium
Chloride 112 H
BUN 30 H
Glucose 106 H
Calcium 8.0 L
Magnesium
POC pH
POC pO2
POC pCO2
POC HCO3
POC Glucose 100 H 102 H
POC Potassium
POC Ionized Calcium
POC Lactate
POC Creatinine
POC ACT+
POC Hematocrit
Crossmatch IS Only
[2024-07-25] MEDS: SYNTHROID 100 MCG PO (06:08)
[2024-07-25] MEDS: TYLENOL 1000 MG PO ×3 (06:08→20:44)
[2024-07-25 06:16] LABS: Glucose - Point of Care 99 mg/dl (70-99)
--- NOTE | 2024-07-25 07:57 | W.PN.CARDCBS ---
Addendum entered and electronically signed by Les Killian MD 07/25/24 09:21:
I saw and examined the patient.
The Director Of Annual Giving's note was reviewed and I agree with the note.
Comment: Briefly, 63-year-old man past medical history of severe mitral regurgitation who underwent mitral and tricuspid valve repair/maze/left atrial appendage clip on 07/24/2024
He is resting comfortably in the CVICU this morning, reporting some mild pleuritic type chest pain but otherwise feels well
Telemetry reviewed which shows junctional rhythm competing with underlying sinus bradycardia
Would continue to hold metoprolol and flecainide and monitor going forward
Filling pressures are at goal based on invasive hemodynamics and appears euvolemic on exam
Rest per Angy back
Original Note:
Today's Communication / Plan
-
continue post op care
continue dobut
follow rhythm
Impression / Plan
-
Primary Foster Care Case Manager: Dr. Mccoy
Assessment:
Severe MR with prolapse and flail leaflets/multiple torn chords at P2 s/p radical MV repair, mod TR s/ simple TV repair, MAZE, GAVI clip via R mini thoracotomy 07/24/24
Paroxysmal atrial fibrillation
Flecainide therapy
BPH
Thyroid cancer s/p thyroidectomy
Hypothyroidism
GERD
Plan:
-s/p radical MV repair, mod TR s/ simple TV repair, MAZE, GAVI clip via R mini thoracotomy 07/24/24
-on dobutamine @3 as RV was sluggish appearing intraop. likely to continue for additional 24 hours post op
-there was concern for afib by EKG this AM, however appeared more consistent with junctional rhythm. reviewed with EP, felt to be junctional rhythm with rare/intermittent atrial activity conducting with first-degree AV delay. will follow on tele.
holding flecainide and BB. repeat EKG for AM ordered
-hgb 12.1, plts 119K
-was not on OAC preop due to low [id number] score. continue asa
-continue post op care
-d/w nursing and CT surgery BAND TIER
Progress Note - Foster Care Case Manager
Subjective
Date of Service: July 25, 2024
reports some post op pain.
Objective
Labs:
07/25/24 02:26
07/25/24 02:
Labs
Hgb 12.1 g/dL (13.0-18.0) L 07/25/24 02:
Hct 36.7 % (39.0-52.0) L 07/25/24 02:
Plt Count 119 10^3/uL (130-400) L 07/25/24 02:
PT 18.3 Sec (11.4-14.6) H 07/24/24 12:11
INR 1.49 07/24/24 12:11
APTT 32.0 Sec (23.4-35.0) 07/24/24 12:11
Sodium 140 mmol/L (135-145) 07/25/24 02:
Potassium 4.6 mmol/L (3.5-5.1) 07/25/24 02:26
BUN 30 mg/dl (9-20) H 07/25/24 02:26
Creatinine 1.0 mg/dL (0.7-1.3) 07/25/24 02:
Glucose 106 mg/dl (70-99) H 07/25/24 02:26
Vital Signs and I&O:
Vital Signs
Temp Pulse Resp BP Pulse Ox
97.3 F 69 13 116/67 97
07/25/24 07:00 07/25/24 07:00 07/25/24 07:00 07/25/24 07:00 07/25/24 07:00
Vital Signs
Temp Pulse Resp BP Pulse Ox
97.3 F 69 13 116/67 97
07/25/24 07:00 07/25/24 07:00 07/25/24 07:00 07/25/24 07:00 07/25/24 07:00
Intake & Output
07/22/24 07/23/24 07/24/24 07/25/24
07:59 07:59 07:59 07:59
Intake Total 1463.2 / 1463.2
Output Total 1150 / 1150
Balance 313.2 / 313.2
Physical Exam
Physical Exam
GEN: No distress, awake, alert, oriented x3. on supp O2
HEENT: supple, anicteric, mmm, eomi
LUNGS: CTA B/L anterolaterally, no wheezes
CV: Reg with ectopy, S1/S2, no murmur
EXT: No cyanosis, clubbing, edema
NEURO: Gross non-focal
SKIN: Warm, pink, dry. No rash. CT in place
[2024-07-25 08:10] LABS: Glucose - Point of Care 104 mg/dl (70-99)
[2024-07-25] MEDS: VITAMIN C 500 MG PO (08:15)
[2024-07-25] MEDS: PROSCAR 5 MG PO (08:15)
[2024-07-25] MEDS: FEOSOL 325 MG PO (08:15)
[2024-07-25] MEDS: PROTONIX 40 MG PO (08:15)
[2024-07-25] MEDS: LOW STRENGTH ASPIRIN 81 MG PO (08:15)
[2024-07-25] MEDS: NEURONTIN 100 MG PO ×3 (08:16→20:44)
[2024-07-25] MEDS: BACTROBAN 2% OINTMENT 1 APPLIC NASAL ×2 (08:16→20:43)
[2024-07-25] MEDS: MAGNESIUM OXIDE 500 MG PO ×2 (08:16→20:44)
[2024-07-25] MEDS: FLOMAX 0.4 MG PO (08:16)
[2024-07-25] MEDS: LIDOCAINE 4% PATCH 1 PATCH TOPICAL (08:17)
[2024-07-25] MEDS: SENOKOT-S 1 TABLET PO ×2 (08:17→20:44)
--- NOTE | 2024-07-25 08:20 | W.PN.INTV ---
Today's Communication / Plan
Recommendations
Up OOB as tolerated
Wean off dobutamine drip per CT surgery team while trending CI with goal >2 as well as MVO2 with goal >60�70
Goal BG 110�140
Pain control
Cardiac rehab consult
Tentmaker services will continue to follow along while patient remains in the CVICU. Once transferred to CVICU�telemetry status, then we will sign off at that time.
Assessment
-
Assessment: 63-year-old male non-smoker with a past medical history of nonrheumatic mitral valve + tricuspid valve regurgitation. Patient known to the cardiothoracic surgery service with last visit on 07/02/[address] Corley. He had gone to see us
here at after having seen the doctors at [facility]. JJ in April 2024 shows a very large prolapsed segment at the posterior MV leaflet with a suspected flail segment and a large regurgitant jet originating mostly from the P1 P2
scallops, with a dilated LA and moderate degree of tricuspid valve insufficiency. He was diagnosed with paroxysmal A-fib about 4-5 years ago and was never placed on AC. He did undergo a left heart catheterization on 07/13/2024 showing no evidence
of obstructive coronary artery disease with mildly elevated eft-sided filling pressures with normal cardiac output (LVEDP: 15 mmHg). Risks and benefits of a cardiothoracic intervention were discussed and the patient has agreed to an intervention.
On 07/24/2024 he underwent a right minithoracotomy with a radical mitral valve repair, simple tricuspid valve repair, modified left atrial Maze procedure and a left atrial appendage exclusion with a 35mm clip. There were no immediate complications
and he was transferred to the CVICU for postoperative care with instrument repairer steam plant services consulted for additional recommendations/management.
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
Impression:
#Severe mitral valve insufficiency with paroxysmal atrial fibrillation s/p right minithoracotomy with radical mitral valve repair (POD #1)
#Moderate tricuspid valve regurgitation s/p simple tricuspid valve repair with 30 mm band annuloplasty (POD #1)
#Paroxysmal A-fib not on AC s/p modified left atrial maze cryo + left atrial appendage exclusion with 35mm clip placement (POD#1)
#Acute anemia due to above
#Acute thrombocytopenia due to above
#History of thyroid cancer s/p resection
#GERD
#Enlarged prostate
#Hypothyroidism
Plan:
Patient successfully extubated on 07/24/2024, and is now on room air breathing comfortably and saturating 95%
Maintain SpO2 >90-94%
prn nebulized bronchodilators - not currently bronchospastic
Encourage incentive spirometer use q1hr while awake
Pulmonary artery catheter parameters will be followed
Pressors/antihypertensive/inotropes/diuretics will be provided as needed
Maintain MAP>65
Replete electrolytes with K>4, Mg>2
Monitor chest tube output (mediastinal chest tube x 1)
Monitor hemoglobin
Monitor platelet count and coags
Transfuse blood products as needed to maintain Hb>7g/dL, plt>50k (given post-operative status)
CT surgery managing chest tubes
Monitor blood sugar to maintain euglycemia with goal BG 110-140
Insulin drip now DC'd --> recommend ISS to maintain BG goal as above
Aspiration precautions
DVT prophylaxis
Early nutrition
Early mobilization
Tentmaker services will continue to follow along while patient remains in the CVICU. Once transferred to CVICU�telemetry status, then we will sign off at that time.
Critical care statement: A total of 38 minutes of critical care time was provided for this patient today. This includes management of ventilator, spontaneous breathing trial, arterial blood gases, pressors, of unstable vital signs, evaluation of the
patient at bedside, reviewing the patient's pertinent medical records including radiographs, microbiology, laboratory evaluations, and discussion with primary team and critical care nursing.
Subjective Dataa
Subjective Data
Date of Service:
Date of Service: July 25, 2024
Chief Complaint: Tentmaker Follow Up
Subjective:
Patient seen and evaluated today at bedside. Currently on room air breathing comfortably. On dobutamine gtt at 2 mcg/kg/min. Has right-sided chest/rib discomfort which feels like a burning sensation. Heart rate 68, BP via A-line: 140/74, PAP:
42/17 and CO/CI: 5.93/2.95. Mediastinal chest tube x [address]
Review of Systems
General: Other (Negative unless mentioned above)
Objective Data
Data Reviewed
Vital Signs / I&O / Oxygen:
Vital Signs
Temp Pulse Resp BP Pulse Ox
97.5 F 65 19 124/71 94
07/25/24 08:00 07/25/24 09:00 07/25/24 09:00 07/25/24 09:00 07/25/24 09:01
Intake and Output
07/24/24 07/25/24 07/26/24
06:59 06:59 06:59
Intake Total 1434.9 / 1463.2 84.2 / 84.2
Output Total 1095 / 1150 115 / 115
Balance 339.9 / 313.2 -30.8 / -30.8
SaO2 [CPAP/PSV] 99
SaO2 [SIMV] 94
SaO2 94
Nasal Cannula flow liters per 2
minute
Physical Exam
General: Respiratory Distress (negative), Comfortable, Pain (Right-sided chest/rib pain), Chills (negative) and Sweats (negative)
HEENT: Normocephalic and Anicteric
Cardiovascular: S1-S2 and Peripheral Edema (negative)
Respiratory: Wheeze (negative), Crackles (Bibasilar), Rhonchi (negative), Non-Labored Respirations and Chest Tube (Mediastinal chest tube x 1)
GI: Soft, Non Distended, Non Tender and Normal Bowel Sounds
Neurology: AO x 3 and Tremors (negative)
Skin: Warm, Dry, Cyanosis (negative) and Jaundice (negative)
Labs/Micro/Reports
Lab Data
07/25/24 02:26
07/25/24 02:26
Laboratory Results
07/24/24 07/24/24
12:11 16:30
PT 18.3 H
INR 1.49
APTT 32.0
pH 7.33 L Cancelled
pCO2 45 Cancelled
pO2 73 L Cancelled
HCO3 23.7 Cancelled
O2 Delivery Level Cancelled
[2024-07-25] MEDS: FLEXERIL 5 MG PO ×2 (08:23→16:24)
--- NOTE | 2024-07-25 08:49 | PTCARENOTE ---
Assumed care of patient at 0700. Pt is awake, alert, and oriented. Pt with complaints of pain, PRN Roxicodone and Flexeril administered for pain. Pt remains in an irregular junctional rhythm, HR 60's. A line BP 135/63 MAP 84. Cuff BP 108/61 MAP 76.
PA 41/16, CVP 14. CO 5.41, CI 2.69, SVR 1064. Epicardial V wire in place, tied to box but not plugged in. Pacer box set to VVI 40/10/0.8. Right lateral chest tube in place, no sign of air leak, drainage serosanguineous. Pulse oximetry 97% on 2L
nasal cannula. Pt with nonproductive weak cough. Encouraged use of IS, pt achieving 500. Pt tolerating PO diet. Saleem catheter in place draining yellow urine, Saleem care completed. Right lateral incisions and right groin incision approximated and
MALVIN. Right IJ cordis in place with KVO, [place] catheter at 51cm. Right A line intact. Pt remains on Dobutamine, now at 2mcg/kg/min. Remains on insulin gtt per glycemic protocol. Pt currently resting comfortably in bed with call amaya within reach.
--- NOTE | 2024-07-25 10:00 | W.PN.ANS.POP ---
Anesthesia Post Operative
- Anesthesia Post Op Note
Vital Signs Stable-See Nursing Note: Yes
Airway Patent: Yes
Adequate Pain Control: Yes
Change in Mental Status: No
Current Postoperative Nausea & Vomiting: No
Anesthesia Complications: No
General Anesthetic Recall: No
Unplanned Admission: No
Post Op Hydration Adequate: Yes
[2024-07-25 10:13] LABS: Glucose - Point of Care 116 mg/dl (70-99)
--- NOTE | 2024-07-25 11:19 | CM ---
Patient in OR today for planned CT Surgery.
Reviewed pre-admission assessment; patient resides w/spouse in a private, [address]/ [place]. Pt. is functionally indep. at baseline w/ ADLs, mobility without the use of any assisted device.
Antic. DC plan is for home w/ CT Transitional Care RN.
CM to follow.
[2024-07-25] MEDS: NSS IV (11:27)
--- NOTE | 2024-07-25 11:27 | PTCARENOTE ---
Assisted pt OOB to chair, tolerated well. Pt remains Junctional HR 60's. BP 115/66 MAP 85. PA 41/14, CVP 11. CO 5.93, CI 2.95, SVR 917. Pulse oximetry 91% on room air. Chest tube remains in place, chest tube dressing changed. Pt remains on
Dobutamine at 2mcg/kg/min. Pt currently resting comfortably OOB in chair with call amaya within reach.
--- NOTE | 2024-07-25 12:00 | PTCARENOTE ---
Addendum entered by Daina Bates RN 07/25/24 14:42:
insulin gtt dc'd as ordered.
Original Note:
pt received from previous RN, agree w/ previous assessment. OOB in chair. IS encouraged.
[2024-07-25 12:13] LABS: Glucose - Point of Care 107 mg/dl (70-99)
[2024-07-25] MEDS: FERRLECIT 110 MG IV (13:06)
[2024-07-25 13:22] LABS: Mixed Venous O2 Saturation 66.1 %
--- NOTE | 2024-07-25 13:35 | PTCARENOTE ---
MVO2 drawn, IMAGER aware of results. Dobutamine gtt @1mcg/kg/min per IMAGER. Roxicodone 5mg PO given for pain.
--- NOTE | 2024-07-25 16:30 | PTCARENOTE ---
pt VSS, no changes in assessment. PRN Flexeril given for pain.
[2024-07-25 18:41] LABS: Mixed Venous O2 Saturation 60.3 %
--- NOTE | 2024-07-25 19:04 | PTCARENOTE ---
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
--- NOTE | 2024-07-25 20:15 | PTCARENOTE ---
assumed care of pt from previous RN. pt A&Ox4. pt assisted back to bed by 2 RNs. R IJ cordis w/ swan floated to 51 cm. R radial a-line. all lines leveled, zeroed, flushed. Junctional rhythm w/ PACs on tele-monitor. temp epicardial v-wires w/ back up
settings VVI 40/10/0.8. POX 89-90% on RA. pt placed on 2 L NC[address] R lateral CT to -20cm wall suction, draining sanguineous drainage. abd s/n, +BS. gore catheter draining clear, yellow urine. all surgical sites stable, CDI. PIV intact. see worklist for
complete nursing assessment, interventions, gtt titrations, VS, and I&Os.
[2024-07-25] MEDS: MUCINEX 600 MG PO (20:44)
[2024-07-25] MEDS: CARDENE 200 IV (20:59)
[2024-07-26] VITALS (16 sets, daily range): BP systolic 109–133; BP diastolic 63–81; PULSE 52; O2SAT 94–95; BMI 30.7
--- NOTE | 2024-07-26 | PTCARENOTE ---
assessment remains unchanged. junctional rhythm w/ occasional PACs on tele-monitor. POX 93% on [address] drainage WNL. c/o pain, see MAR
[2024-07-26] MEDS: DILAUDID 0.5 MG IV (00:02)
[2024-07-26 02:24] LABS: Mixed Venous O2 Saturation 67.5 %
[2024-07-26 02:29] LABS: Hematocrit 33.2 % (39.0-52.0); Mean Corp Hgb Conc. 33.1 g/dL (33.0-37.0); Mean Corpuscular Volume 84.5 fL (80.0-94.0); Platelet Count 100 10^3/uL (130-400); Red Blood Cell Count 3.93 10^6/uL (4.70-6.10)
[2024-07-26 02:50] LABS: Blood Urea Nitrogen 32 mg/dl (9-20); Calcium 7.6 mg/dl (8.4-10.2); Carbon Dioxide 25 mmol/L (22-30); Chloride 107 mmol/L (98-107); Estimated Creatinine Clearance 91 ml/min; Glucose 134 mg/dl (70-99); Potassium 4.1 mmol/L (3.5-5.1); Sodium 136 mmol/L (135-145); eGFR > 60.00
--- NOTE | 2024-07-26 04:00 | PTCARENOTE ---
no acute changes. Junctional rhythm on tele-monitor. POX 92-93% on [address] drainage WNL.
[2024-07-26] MEDS: FLEXERIL 5 MG PO ×2 (04:15→12:50)
[2024-07-26] MEDS: DILAUDID 0.25 MG IV (04:15)
--- NOTE | 2024-07-26 04:56 | W.PN.CT ---
Today's Communication / Plan
-
-pod #2
-remains junctional low 50s overnight with stable BP. Holding BB and Flecainide
-mvO2 67.5. Drips: Dobut 1, Cardene 2.5
-CT output: 2 meds 120/280 in 12/24 hrs
-wean off Dobut as tolerated
-current meds (ASA, Flomax, Proscar, iv iron, vit C, Protonix, Mucinex, Synthroid)
-encourage IS, OOB
Assessment / Plan
-
s/p mini Thoracotomy, MV Repair with 34mm band, 2 chelsea-chords, TV repair with 30mm band, RUKHSANA HENDRICKS on 07/24/[address] Corley - POD #2
-severe MR with prolapse and flail leaflets/multiple torn chords at P2 s/p MV repair 07/24/24
-mod TR s/p TV repair
-p Afib on flecainide
-BPH
-hypothyroid
-GERD
-thyroid Ca s/p surgery 1992
-urolift 2022
-acute postop blood loss anemia-
-acute postop thrombocytopenia
-acute postop atelectasis
-acute postop hypovolemia with subsequent hypervolemia
-acute postop junctional rhythm postop
Discussed patient care with: Nursing and Care Team
Subjective
-
Date of Service: July 26, 2024
Objective Data
-
Lab Results
07/26/24 02:15
07/26/24 02:15
PT 18.3 Sec (11.4-14.6) H 07/24/24 12:11
INR 1.49 07/24/24 12:11
APTT 32.0 Sec (23.4-35.0) 07/24/24 12:11
Vital Signs
Vital Signs
Temp Pulse Resp BP Pulse Ox
99.2 F 52 30 119/68 90
07/26/24 04:00 07/26/24 04:15 07/26/24 04:15 07/26/24 04:00 07/26/24 04:15
CT Intake/Output/Weight
07/25/24 07/25/24 07/26/24
06:59 18:59 06:59
Intake Total 508.6 / 1463.2 1007.5 / 1270.9 263.4 / 1270.9
Output Total 555 / 1150 590 / 1190 600 / 1190
Balance -46.4 / 313.2 417.5 / 80.9 -336.6 / 80.9
SaO2: 90
Physical Exam
-
General: Awake and AOx3
Cardiovascular: Regular rate & rhythm, No Murmurs and No Rub
Respiratory: Decreased Breath Sounds
Sternum: Stable
Incision: Clean, Dry and Intact
Extremities: No Edema (2+ DPs b/l)
Abdomen: soft, nontender, nondistended, + decreased bowel sounds
Data Reviewed
-
Lab Results: Results Reviewed
Medications: Active Meds Reviewed
Chest X-Ray: Report Reviewed and Image Reviewed
ECG: Report Reviewed and Image Reviewed
[2024-07-26] MEDS: SYNTHROID 100 MCG PO (06:09)
[2024-07-26] MEDS: TYLENOL 1000 MG PO ×3 (06:09→22:06)
[2024-07-26] MEDS: ROXICODONE 5 MG PO ×2 (06:23→10:51)
--- NOTE | 2024-07-26 07:26 | PTCARENOTE ---
Received pt from employer relations representative RN; pt AAOx3 and resting comfortably in chair; Junctional on monitor and VSS; RIAngie Marie, Romero floated to 51, Right A-line and PIV x1 patent; Dobutamine infusing see flow sheet for details; Lungs diminished;
nonproductive cough; CT x1 to -20 wall suction no air leak and no crepitus noted; hypoactive bowel sounds; Saleem catheter draining yellow urine; palpable pulses throughout; trace lower extremity edema; all surgical sites C/D/I; see nursing
documentation for further details.
[2024-07-26] MEDS: MUCINEX 600 MG PO (07:59)
[2024-07-26] MEDS: VITAMIN C 500 MG PO (07:59)
[2024-07-26] MEDS: PROSCAR 5 MG PO (07:59)
[2024-07-26] MEDS: PROTONIX 40 MG PO (07:59)
[2024-07-26] MEDS: FEOSOL 325 MG PO (07:59)
[2024-07-26] MEDS: SENOKOT-S 1 TABLET PO ×2 (07:59→20:38)
[2024-07-26] MEDS: MAGNESIUM OXIDE 500 MG PO ×2 (07:59→20:38)
[2024-07-26] MEDS: NEURONTIN 100 MG PO ×3 (07:59→22:06)
[2024-07-26] MEDS: FLOMAX 0.4 MG PO (07:59)
[2024-07-26] MEDS: BACTROBAN 2% OINTMENT 1 APPLIC NASAL ×2 (07:59→20:39)
[2024-07-26] MEDS: LOW STRENGTH ASPIRIN 81 MG PO (07:59)
[2024-07-26] MEDS: LIDOCAINE 4% PATCH TOPICAL (08:00)
--- NOTE | 2024-07-26 08:23 | W.PN.INTV ---
Today's Communication / Plan
Recommendations
Up OOB as tolerated
Goal BG 110�140
Pain control
Cardiac rehab consult
Start guaifenesin and rais to 1200 mg twice a day and also start Tessalon Perles
If cough persists or is bothersome to the patient, would consider starting nebulized bronchodilators with DuoNebs with nebulized 3% 2�3 times a day with chest PT (vest vs percussor)
Patient now being downgraded to CVICU�telemetry status. No additional recommendations at this time. Carpenter Helper Hardwood Flooring/Pulmonary service will now sign off. Please reconsult if there are any additional questions/concerns, or if patient's respiratory
status deteriorates.
Assessment
-
Assessment: 63-year-old male non-smoker with a past medical history of nonrheumatic mitral valve + tricuspid valve regurgitation. Patient known to the cardiothoracic surgery service with last visit on 07/02/[address] Corley. He had gone to see us
here at after having seen the doctors at [facility]. JJ in April 2024 shows a very large prolapsed segment at the posterior MV leaflet with a suspected flail segment and a large regurgitant jet originating mostly from the P1 P2
scallops, with a dilated LA and moderate degree of tricuspid valve insufficiency. He was diagnosed with paroxysmal A-fib about 4-5 years ago and was never placed on AC. He did undergo a left heart catheterization on 07/13/2024 showing no evidence
of obstructive coronary artery disease with mildly elevated eft-sided filling pressures with normal cardiac output (LVEDP: 15 mmHg). Risks and benefits of a cardiothoracic intervention were discussed and the patient has agreed to an intervention.
On 07/24/2024 he underwent a right minithoracotomy with a radical mitral valve repair, simple tricuspid valve repair, modified left atrial Maze procedure and a left atrial appendage exclusion with a 35mm clip. There were no immediate complications
and he was transferred to the CVICU for postoperative care with middle school music teacher services consulted for additional recommendations/management.
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
Impression:
#Severe mitral valve insufficiency with paroxysmal atrial fibrillation s/p right minithoracotomy with radical mitral valve repair (POD #2)
#Moderate tricuspid valve regurgitation s/p simple tricuspid valve repair with 30 mm band annuloplasty (POD #2)
#Paroxysmal A-fib not on AC s/p modified left atrial maze cryo + left atrial appendage exclusion with 35mm clip placement (POD#2)
#Acute anemia due to above
#Acute thrombocytopenia due to above
#History of thyroid cancer s/p resection
#GERD
#Enlarged prostate
#Hypothyroidism
Plan:
Patient successfully extubated on 07/24/2024, and is now on room air breathing comfortably and saturating 96-97%
Maintain SpO2 >90-94%
prn nebulized bronchodilators - not currently bronchospastic
Encourage incentive spirometer use q1hr while awake
Pressors/antihypertensive/inotropes/diuretics will be provided as needed
Maintain MAP>65
Replete electrolytes with K>4, Mg>2
Mediastinal chest tube now removed
Monitor hemoglobin
Monitor platelet count and coags
Transfuse blood products as needed to maintain Hb>7g/dL, plt>50k (given post-operative status)
CT surgery managing chest tubes
Monitor blood sugar to maintain euglycemia with goal BG 110-140
Insulin drip now DC'd --> recommend ISS to maintain BG goal as above
Aspiration precautions
DVT prophylaxis
Early nutrition
Early mobilization
Patient now being downgraded to CVICU�telemetry status. No additional recommendations at this time. Carpenter Helper Hardwood Flooring/Pulmonary service will now sign off. Thank you for allowing us to be involved in the care of this patient. Please reconsult if there
are any additional questions/concerns, or if patient's respiratory status deteriorates.
Total time spent today was 56 minutes for this encounter. Time includes reviewing laboratory test/imaging results, reviewing pertinent medical records, obtaining and reviewing medical history, performing an appropriate exam, ordering medications,
tests and procedures. Time also includes documentation of this encounter, coordinating patient care and communicating with other healthcare professionals. Total time does not include separately billed tests performed on this date of service.
Subjective Dataa
Subjective Data
Date of Service:
Date of Service: July 26, 2024
Chief Complaint: Carpenter Helper Hardwood Flooring Follow Up
Subjective:
Patient seen and evaluated today at bedside. He is sitting in the chair, on room air breathing comfortably. Saturating 97% with heart rate 55. Has a cough which is dry although he has chest congestion with difficulty bringing up his phlegm. Also
endorses back pain earlier today which is improved with pain meds. Currently denies SOLIS, SOB, chest pain, fevers or chills.
Review of Systems
General: Other (Negative unless mentioned above)
Objective Data
Data Reviewed
Vital Signs / I&O / Oxygen:
Vital Signs
Temp Pulse Resp BP Pulse Ox
98.2 F 47 16 116/67 97
07/26/24 08:00 07/26/24 08:15 07/26/24 08:15 07/26/24 08:00 07/26/24 08:29
Intake and Output
07/25/24 07/26/24 07/27/24
06:59 06:59 06:59
Intake Total 1434.9 / 1463.2 1316.1 / 1338.7 45.2 / 45.2
Output Total 1095 / 1150 1335 / 1390 55 / 55
Balance 339.9 / 313.2 -18.9 / -51.3 -9.8 / -9.8
SaO2 [CPAP/PSV] 99
SaO2 [SIMV] 94
SaO2 97
Nasal Cannula flow liters per 2
minute
Physical Exam
General: Respiratory Distress (negative), Comfortable, Pain (Right-sided chest/rib pain), Chills (negative) and Sweats (negative)
HEENT: Normocephalic and Anicteric
Cardiovascular: S1-S2 and Peripheral Edema (negative)
Respiratory: Clear, Wheeze (negative), Crackles (negative), Rhonchi (negative) and Non-Labored Respirations
GI: Soft, Non Distended, Non Tender and Normal Bowel Sounds
Neurology: AO x 3 and Tremors (negative)
Skin: Warm, Dry, Cyanosis (negative) and Jaundice (negative)
Labs/Micro/Reports
Lab Data
07/26/24 02:15
07/26/24 02:15
--- NOTE | 2024-07-26 09:31 | PTCARENOTE ---
Jackson, A-line and CT x1 removed per CT AUTOMATIC OUTSOLE CUTTER order.
[2024-07-26] MEDS: COLCHICINE 0.3 MG PO (10:21)
--- NOTE | 2024-07-26 12:16 | PTCARENOTE ---
Assessment unchanged; Junctional on monitor and VSS; pain medication provided and family at bedside.
[2024-07-26] MEDS: NSS 500 IV (12:52)
--- NOTE | 2024-07-26 13:06 | W.PN.CARDCBS ---
Addendum entered and electronically signed by Mt Romero, DO 07/26/24 18:20:
I saw and examined the patient.
The Public Aid Eligibility Assistant's note was reviewed and I agree with the note.
Comment:
Plan:
Continue postop care
Continue telemetry monitoring, remains junctional rhythm With intermittent atrial activity.
Flecainide and beta-joe remain on hold.
Check echo in AM.
Dobutamine stopped today.
Discussed with family at bedside.
Discussed with nursing.
Original Note:
Today's Communication / Plan
-
continue post op care
follow heart rhythm
echo in AM
Impression / Plan
-
Primary Automotive Electrical Helper: Dr. Mccoy
Assessment:
Severe MR with prolapse and flail leaflets/multiple torn chords at P2 s/p radical MV repair, mod TR s/ simple TV repair, MAZE, GAVI clip via R mini thoracotomy 07/24/24
Paroxysmal atrial fibrillation
Flecainide therapy
BPH
Thyroid cancer s/p thyroidectomy
Hypothyroidism
GERD
Plan:
-s/p radical MV repair, mod TR s/ simple TV repair, MAZE, GAVI clip via R mini thoracotomy 07/24/24
-dobutamine stopped this AM
-CTs out
-remains junctional with intermittent atrial activity conducting with first-degree AV delay. follow on tele. continue to hold OP flec and BB
-hgb 11.0, plts 100K
-has history of PAF. was not on OAC preop due to low [id number] score. continue asa
-for echo in AM
-continue post op care
-d/w nursing and CT surgery NETWORK SUPPORT SPECIALIST
Progress Note - Automotive Electrical Helper
Subjective
Date of Service: July 26, 2024
with cough.
Objective
Labs:
07/26/24 02:15
07/26/24 02:15
Labs
Hgb 11.0 g/dL (13.0-18.0) L 07/26/24 02:15
Hct 33.2 % (39.0-52.0) L 07/26/24 02:15
Plt Count 100 10^3/uL (130-400) L 07/26/24 02:15
PT 18.3 Sec (11.4-14.6) H 07/24/24 12:11
INR 1.49 07/24/24 12:11
APTT 32.0 Sec (23.4-35.0) 07/24/24 12:11
Sodium 136 mmol/L (135-145) 07/26/24 02:15
Potassium 4.1 mmol/L (3.5-5.1) 07/26/24 02:15
BUN 32 mg/dl (9-20) H 07/26/24 02:15
Creatinine 0.8 mg/dL (0.7-1.3) 07/26/24 02:15
Glucose 134 mg/dl (70-99) H 07/26/24 02:15
Vital Signs and I&O:
Vital Signs
Temp Pulse Resp BP Pulse Ox
98.3 F 58 18 120/81 97
07/26/24 12:06 07/26/24 11:00 07/26/24 12:06 07/26/24 09:57 07/26/24 09:38
Vital Signs
Temp Pulse Resp BP Pulse Ox
98.3 F 58 18 120/81 97
07/26/24 12:06 07/26/24 11:00 07/26/24 12:06 07/26/24 09:57 07/26/24 09:38
Intake & Output
07/24/24 07/25/24 07/26/24 07/27/24
07:59 07:59 07:59 07:59
Intake Total 1463.2 / 1519.1 1310.4 / 1330.4 40 / 40
Output Total 1150 / 1210 1335 / 1335 95 / 95
Balance 313.2 / 309.1 -24.6 / -4.6 -55 / -55
Physical Exam
Physical Exam
GEN: No distress, awake, alert, oriented x3. sitting in chair
HEENT: supple, anicteric, mmm, eomi
LUNGS: CTA B/L anterolaterally, no wheezes
CV: Reg with ectopy, S1/S2, no murmur
EXT: No cyanosis, clubbing, edema
NEURO: Gross non-focal
SKIN: Warm, pink, dry. No rash.
[2024-07-26] MEDS: FERRLECIT 110 MG IV (13:07)
[2024-07-26] MEDS: TORADOL 30 MG IV ×2 (13:07→20:38)
[2024-07-26] MEDS: TESSALON PERLES 200 MG PO ×3 (14:33→22:06)
--- NOTE | 2024-07-26 14:46 | CM ---
CM following for DC planning needs.
Attempted to meet w/ patient at bedside; patient was sleeping soundly-did not disturb.
Patient is POD#2.
Reviewed DC plan; anticipate home w/ CT Transitional Care RN.
CM to follow.
--- NOTE | 2024-07-26 17:16 | PTCARENOTE ---
Junctional on monitor and VSS; pt resting comfortably in bed with family at bedside; assessment unchanged.
[2024-07-26] MEDS: MUCINEX 1200 MG PO (20:38)
--- NOTE | 2024-07-26 21:00 | PTCARENOTE ---
Assumed care of pt from dayshift RN. Walking rounds completed. Pt AAOx3. Resting in bed at this time. Junctional on the tele monitor w/ occasional PAC's. HR 60-70s. Temporary epicardial v-wire insulated. BP stable. Palpable pulses throughout. Trace
LE edema. Pt is 94% on RA. Lung sounds diminished B/L. Moist cough. Deep breathing and IS encouraged. Abdomen soft/nontender. +BS. DTV post Saleem removal. Last bladder scan 260ml. Right later punctures sites intact and covered w/ dressing. CT
dressing C/D/I. Right groin puncture x2 intact and TRACK WORKER. Right IJ cordis and PIV intact. See worklist for full nursing assessment and interventions. Call amaya within reach.
[2024-07-27] VITALS (13 sets, daily range): BP systolic 101–140; BP diastolic 64–81; PULSE 73; O2SAT 95–97; BMI 30.9
--- NOTE | 2024-07-27 00:07 | PTCARENOTE ---
No acute change in assessment. Pt in Junctional rhythm on the tele monitor. HR 60s. BP stable. 92% on RA. Persistent cough. All surgical sites stable. No c/o pain at this time. Call amaya within reach.
[2024-07-27] MEDS: TORADOL IV (02:00)
--- NOTE | 2024-07-27 03:39 | W.PN.CT ---
Today's Communication / Plan
-
-pod #3
-appears in CHB with junctional escape 60-70s overnight with stable BP. Holding BB and Flecainide
-appreciate Cardiology/EP input
-c/o cough, unable to bring up mucus- continue Mucinex, IS, started acapella, continue chest PT
-labs pending
-Echo today
-current meds (ASA, Flomax, Proscar, iron, vit C, Protonix, Mucinex, Synthroid)
-encourage IS, OOB
Assessment / Plan
-
s/p mini Thoracotomy, MV Repair with 34mm band, 2 chelsea-chords, TV repair with 30mm band, MAZE, LAAE on 07/24/[address] Corley - POD #3
-severe MR with prolapse and flail leaflets/multiple torn chords at P2 s/p MV repair 07/24/24
-mod TR s/p TV repair
-p Afib on flecainide
-BPH
-hypothyroid
-GERD
-thyroid Ca s/p surgery 1992
-urolift 2022
-acute postop blood loss anemia-
-acute postop thrombocytopenia
-acute postop atelectasis
-acute postop hypovolemia with subsequent hypervolemia
-acute postop junctional rhythm postop
-suspected acute postop pericarditis- Colchicine started
Discussed patient care with: Nursing and Care Team
Subjective
-
Date of Service: July 27, 2024
Objective Data
-
PT 18.3 Sec (11.4-14.6) H 07/24/24 12:11
INR 1.49 07/24/24 12:11
APTT 32.0 Sec (23.4-35.0) 07/24/24 12:11
Vital Signs
Vital Signs
Temp Pulse Resp BP Pulse Ox
98.5 F 64 16 101/64 92
07/27/24 00:02 07/27/24 00:02 07/27/24 00:02 07/27/24 00:02 07/27/24 00:02
CT Intake/Output/Weight
07/26/24 07/26/24 07/27/24
06:59 18:59 06:59
Intake Total 308.6 / 1338.7 62.6 / 112.6 50 / 112.6
Output Total 745 / 1390 150 / 250 100 / 250
Balance -436.4 / -51.3 -87.4 / -137.4 -50 / -137.4
SaO2: 92
Physical Exam
-
General: Awake and AOx3
Cardiovascular: Regular rate & rhythm, No Murmurs and Rub
Respiratory: Decreased Breath Sounds
Sternum: Stable
Incision: Clean, Dry and Intact
Extremities: No Edema
Abdomen: soft, nondistended, nontender, + bowel soudns
Data Reviewed
-
Lab Results: Results Reviewed
Medications: Active Meds Reviewed
Chest X-Ray: Report Reviewed and Image Reviewed
ECG: Report Reviewed and Image Reviewed
[2024-07-27 04:13] LABS: Hematocrit 32.6 % (39.0-52.0); Hemoglobin 10.6 g/dL (13.0-18.0); Mean Corp Hgb Conc. 32.5 g/dL (33.0-37.0); Mean Corpuscular Volume 86.2 fL (80.0-94.0); Red Blood Cell Count 3.78 10^6/uL (4.70-6.10); Red Cell Dist. Width 14.9 % (11.5-14.5); White Blood Cell Count 14.9 10^3/uL (4.8-10.8)
[2024-07-27 04:19] LABS: Mean Platelet Volume 11.1 fL (7.4-10.4)
[2024-07-27 04:20] LABS: Platelet Count 94 10^3/uL (130-400)
[2024-07-27 04:37] LABS: Blood Urea Nitrogen 34 mg/dl (9-20); Calcium 7.8 mg/dl (8.4-10.2); Carbon Dioxide 27 mmol/L (22-30); Chloride 106 mmol/L (98-107); Estimated Creatinine Clearance 92 ml/min; Glucose 124 mg/dl (70-99); Magnesium 2.5 mg/dl (1.6-2.3); Potassium 4.2 mmol/L (3.5-5.1); Sodium 137 mmol/L (135-145); eGFR > 60.00
--- NOTE | 2024-07-27 04:46 | PTCARENOTE ---
Pt reassessed. Junctional on the tele monitor. HR 60s. BP stable. Pt 93-94% on RA. Labs drawn and sent. EKG obtained. Pt bladder scanned for 459ml. Pt assisted OOB to attempt to void. Pt able to void 125ml nitin urine. PVR 309 ml. Pt states that
this is normal and that they usually void in small amounts in the AM. CTPA aware - will give Flomax dose early. Call amaya within reach.
[2024-07-27] MEDS: TYLENOL 1000 MG PO ×3 (05:17→22:56)
[2024-07-27] MEDS: FLOMAX 0.4 MG PO (05:17)
[2024-07-27] MEDS: SYNTHROID 100 MCG PO (05:18)
[2024-07-27] MEDS: MUCINEX 1200 MG PO (08:40)
[2024-07-27] MEDS: VITAMIN C 500 MG PO (08:40)
[2024-07-27] MEDS: TESSALON PERLES 200 MG PO ×3 (08:40→22:56)
[2024-07-27] MEDS: SENOKOT-S 1 TABLET PO ×2 (08:40→20:52)
[2024-07-27] MEDS: FEOSOL 325 MG PO (08:40)
[2024-07-27] MEDS: LIDOCAINE 4% PATCH 1 PATCH TOPICAL (08:41)
[2024-07-27] MEDS: COLCHICINE 0.3 MG PO (08:41)
[2024-07-27] MEDS: LOW STRENGTH ASPIRIN 81 MG PO (08:41)
[2024-07-27] MEDS: MAGNESIUM OXIDE 500 MG PO (08:41)
[2024-07-27] MEDS: NEURONTIN 100 MG PO ×3 (08:41→22:56)
[2024-07-27] MEDS: PROSCAR 5 MG PO (08:41)
[2024-07-27] MEDS: PROTONIX 40 MG PO (08:41)
[2024-07-27] MEDS: BACTROBAN 2% OINTMENT 1 APPLIC NASAL ×2 (08:42→20:51)
--- NOTE | 2024-07-27 09:00 | PTCARENOTE ---
PT OOB to chair ordering breakfast, AAOx3 w/ complaints of chest pain when coughing. junctional w/ pac's on monitor, RA clear lung sounds, GI and wnl, all surgical incisions CDI. see worklist for detailed assessment
--- NOTE | 2024-07-27 09:09 | W.PN.CARDCBS ---
Addendum entered and electronically signed by Marco Dos Santos DO 07/27/24 10:51:
I saw and examined the patient.
The Linderman Operator's note was reviewed and I agree with the note.
Comment:
Patient resting comfortably in chair. No acute events overnight. Productive cough. No chest pain, shortness of breath, palpitations, weakness, lightheadedness.
GEN: No distress, awake, alert, oriented x3. sitting in chair
HEENT: supple, anicteric, mmm, eomi
LUNGS: CTA B/L, no wheezes
CV: Reg, S1/S2, 1/6 syst LSB, no murmur
EXT: No cyanosis, clubbing. trace edema of B/L LE
NEURO: Gross non-focal
SKIN: Warm, pink, dry. No rash. R chest sites with dressings c/d/i.
Telemetry shows accelerated junctional rhythm with intermittent sinus/atrial one-to-one conduction
EKG shows sinus bradycardia with 1st degree avb and competing junctional rhythm
A/P as below.
Patient doing well postoperatively status post mitral valve repair, tricuspid valve repair, maze, left atrial appendage clip, via right minithoracotomy
Continue routine postoperative care; hold beta-joe, AV christa blocking agents for now; patient has stable junctional escape with underlying sinus bradycardia, continue to monitor in the setting of post-op valve surgery; if persistent may benefit
from implant of pacemaker in the setting of need for AVN blocking agents
Monitor on telemetry, daily EKG, echocardiogram today
Original Note:
Today's Communication / Plan
-
follow rhythm
echo today
Impression / Plan
-
Primary Professional Organizer: Dr. Mccoy
Assessment:
Severe MR with prolapse and flail leaflets/multiple torn chords at P2 s/p radical MV repair, mod TR s/ simple TV repair, MAZE, GAVI clip via R mini thoracotomy 07/24/24
Paroxysmal atrial fibrillation
Chronic flecainide therapy
BPH
Thyroid cancer s/p thyroidectomy
Hypothyroidism
GERD
Plan:
-s/p radical MV repair, mod TR s/ simple TV repair, MAZE, GAVI clip via R mini thoracotomy 07/24/24
-remains in junctional rhythm on review of tele. continue to hold OP flec and BB. tentatively plan for PPM early next week if conduction does not improve, d/w patient 07/27
-has history of PAF. was not on OAC preop due to low [id number] score. continue asa
-hgb 10.6, plts 94K
-echo today
-continue post op care
-d/w CT surgery BARREL LATHE OPERATOR
Progress Note - Professional Organizer
Subjective
Date of Service: July 27, 2024
reports cough improving. pain controlled. no dizziness/lightheadedness
Objective
Labs:
07/27/24 03:53
07/27/24 03:53
Labs
Hgb 10.6 g/dL (13.0-18.0) L 07/27/24 03:53
Hct 32.6 % (39.0-52.0) L 07/27/24 03:53
Plt Count 94 10^3/uL (130-400) L 07/27/24 03:53
PT 18.3 Sec (11.4-14.6) H 07/24/24 12:11
INR 1.49 07/24/24 12:11
APTT 32.0 Sec (23.4-35.0) 07/24/24 12:11
Sodium 137 mmol/L (135-145) 07/27/24 03:53
Potassium 4.2 mmol/L (3.5-5.1) 07/27/24 03:53
BUN 34 mg/dl (9-20) H 07/27/24 03:53
Creatinine 0.9 mg/dL (0.7-1.3) 07/27/24 03:53
Glucose 124 mg/dl (70-99) H 07/27/24 03:53
Vital Signs and I&O:
Vital Signs
Temp Pulse Resp BP Pulse Ox
98.2 F 62 16 139/73 93
07/27/24 03:49 07/27/24 07:00 07/27/24 03:49 07/27/24 06:01 07/27/24 03:49
Vital Signs
Temp Pulse Resp BP Pulse Ox
98.2 F 62 16 139/73 93
07/27/24 03:49 07/27/24 07:00 07/27/24 03:49 07/27/24 06:01 07/27/24 03:49
Intake & Output
07/25/24 07/26/24 07/27/24 07/28/24
07:59 07:59 07:59 07:59
Intake Total 1463.2 / 1519.1 1310.4 / 1330.4 160 / 160
Output Total 1150 / 1210 1335 / 1335 420 / 420
Balance 313.2 / 309.1 -24.6 / -4.6 -260 / -260
Physical Exam
Physical Exam
GEN: No distress, awake, alert, oriented x3. sitting in chair
HEENT: supple, anicteric, mmm, eomi
LUNGS: CTA B/L, no wheezes
CV: Reg, S1/S2, 1/6 syst LSB, no murmur
EXT: No cyanosis, clubbing. trace edema of B/L LE
NEURO: Gross non-focal
SKIN: Warm, pink, dry. No rash. R chest sites with dressings c/d/i.
[2024-07-27] MEDS: LASIX 40 MG IV (11:16)
--- NOTE | 2024-07-27 13:00 | PTCARENOTE ---
cordis removed @ 11am PT in bed for 30 mins then up ad law. no change from previous assessmnet
[2024-07-27] MEDS: FERRLECIT 110 MG IV (14:12)
[2024-07-27] MEDS: NSS 500 IV (14:13)
[2024-07-27] MEDS: DILAUDID 0.25 MG IV (14:17)
--- NOTE | 2024-07-27 14:35 | CM ---
CM following for DC planning needs.
Met w/ patient, spouse + other family member at bedside.
Reviewed CM role.
Pt. reports that he is feeling well. He reports that he is now anticipating a pacemaker.
Plan is for home w/ CT Transitional Care RN once stable.
Will follow.
[2024-07-27] MEDS: ROBITUSSIN 200 MG PO ×2 (14:58→22:56)
--- NOTE | 2024-07-27 18:00 | PTCARENOTE ---
no change from previous assessment. see worklist for detailed assessment
[2024-07-27] MEDS: ROXICODONE 5 MG PO ×2 (18:08→22:57)
[2024-07-27] MEDS: ROXICODONE 2.5 MG PO (20:52)
--- NOTE | 2024-07-27 21:00 | PTCARENOTE ---
Patient received resting in bed watching television. Patient's family member at beside. Patient A+A+Ox3. No neurological deficits noted. Room air. SpO2 94%. Occasional coughing episodes. Nonproductive cough. Chest tube dressing intact.
Remains in Junctional Rhythm with PAC's. Heart rate 70's. V-Wire insulated. Patient with no c/o chest pain, pressure or discomfort. Normoactive bowel sounds. No BM. No c/o nausea. No vomiting. Voiding in bathroom without difficulty.
Positive, palpable pulses. Ambulates by self. Steady gait. Right lateral chest incision and puncture sites intact and open to air. Patient with no c/o back or flank pain. Assessment as documented.
[2024-07-27] MEDS: MELATONIN 5 MG PO (22:57)
[2024-07-28] VITALS (9 sets, daily range): BP systolic 119–142; BP diastolic 72–81; BMI 30.3
--- NOTE | 2024-07-28 | PTCARENOTE ---
Patient sleeping without difficulty. Roxicodone 5 mg PO for pain management. Melatonin 5mg PO for sleep. Assessment as documented.
--- NOTE | 2024-07-28 00:33 | W.PN.CT ---
Addendum entered and electronically signed by Meng Tomas MD 07/28/24 09:06:
I saw and examined the patient.
The PA's note was reviewed and I agree with the note.
Comment:
POD#4 s/p MVRp, TVRp, MAZE, ELAA
Doing well, but remains in junctional rhythm in 60s - EP following - BB and flecainide on hold
Echo excellent
OOB/IS/ambulate
Will hopefully avoid PPM, but will potentially require
Original Note:
Today's Communication / Plan
-
Plan:
-No major issues overnight. Hemodynamically and neurologically intact
-Pt has been bradycardic with 1st deg AVB as well as junctional rhythm post MAZE. BB and Flecainide currently on hold
-Rhythm is this AM appears to be junctional @ 65 bpm with intermittent PAC's. EP/Cardiology following for possible PPM
-Not on oral anticoagulation d/t low [id number] Score
-Repeat echo yesterday 07/27 showed a well seated MV (MG 4 mmHg, no MR) and TV repairs (trace TR), LVEF 50-55%
-Cont current meds (ASA, Flomax, Proscar, iron, vit C, Protonix, Mucinex, Synthroid; hold BB and Flecainide)
-F/U 2-view CxR
-Encourage use of IS
-OOB into chair/Ambulate
-Home vs PPM placement on Tuesday
Assessment / Plan
-
s/p mini Thoracotomy, MV Repair with 34mm band, 2 chelsea-chords, TV repair with 30mm band, MAZE, LAAE on 07/24/[address] Corley - POD #4
-severe MR with prolapse and flail leaflets/multiple torn chords at P2 s/p MV repair 07/24/24
-mod TR s/p TV repair
-p Afib on flecainide
-BPH
-hypothyroid
-GERD
-thyroid Ca s/p surgery 1992
-urolift 2022
-acute postop blood loss anemia-
-acute postop thrombocytopenia
-acute postop atelectasis
-acute postop hypovolemia with subsequent hypervolemia
-acute postop junctional rhythm postop
-suspected acute postop pericarditis- Colchicine started
Discussed patient care with: Cardiology, Nursing, Respiratory Therapy, Pharmacy and Care Team
Subjective
-
Date of Service: July 28, 2024
Pt c/o mild incisional pain and productive cough, otherwise feel well
Objective Data
-
PT 18.3 Sec (11.4-14.6) H 07/24/24 12:11
INR 1.49 07/24/24 12:11
APTT 32.0 Sec (23.4-35.0) 07/24/24 12:11
Vital Signs
Vital Signs
Temp Pulse Resp BP Pulse Ox
98.9 F 71 16 131/81 94
07/27/24 22:50 07/27/24 23:00 07/27/24 22:50 07/27/24 22:50 07/27/24 22:50
CT Intake/Output/Weight
07/27/24 07/27/24 07/28/24
06:59 18:59 06:59
Intake Total 110 / 182.6 10 / 250 240 / 250
Output Total 325 / 475 2400 / 2400
Balance -215 / -292.4 -2390 / -2150 240 / -2150
SaO2: 94 (RA)
Physical Exam
-
General: Awake, Oriented and AOx3
Cardiovascular: Regular rate & rhythm, No Murmurs, No Rub and No Gallop
Respiratory: Decreased Breath Sounds (at bases, otherwise clear)
Incision: Clean, Dry, Intact and Dressing Intact
Extremities: Other (+trace edema)
--- NOTE | 2024-07-28 05:15 | PTCARENOTE ---
Patient A+A+Ox3. No neurological deficits noted. Roxicodone 5 mg PO for pain management. AM labs collected and sent. EKG completed and given to PA for CT Surgery. Patient given CHG bath and linens changed. V-Wire insulated. Standing scale
weight 90.3 kg. Patient ambulating by self to bathroom to void. Assessment/Interventions as documented.
[2024-07-28 05:18] LABS: Hematocrit 34.3 % (39.0-52.0); Hemoglobin 11.1 g/dL (13.0-18.0); Mean Corp Hgb Conc. 32.4 g/dL (33.0-37.0); Mean Corpuscular Hgb 28.1 pg (27.0-31.0); Mean Corpuscular Volume 86.8 fL (80.0-94.0); Mean Platelet Volume 10.5 fL (7.4-10.4); Platelet Count 122 10^3/uL (130-400); Red Blood Cell Count 3.95 10^6/uL (4.70-6.10); Red Cell Dist. Width 14.9 % (11.5-14.5); White Blood Cell Count 15.2 10^3/uL (4.8-10.8)
[2024-07-28] MEDS: TYLENOL 1000 MG PO ×3 (05:18→22:44)
[2024-07-28] MEDS: SYNTHROID 100 MCG PO (05:18)
[2024-07-28] MEDS: ROXICODONE 5 MG PO ×2 (05:19→22:45)
[2024-07-28 05:39] LABS: Blood Urea Nitrogen 24 mg/dl (9-20); Carbon Dioxide 28 mmol/L (22-30); Chloride 103 mmol/L (98-107); Estimated Creatinine Clearance 93 ml/min; Glucose 117 mg/dl (70-99); Magnesium 2.3 mg/dl (1.6-2.3); Sodium 139 mmol/L (135-145); eGFR > 60.00
[2024-07-28] MEDS: LIDOCAINE 4% PATCH 1 PATCH TOPICAL (08:45)
[2024-07-28] MEDS: BACTROBAN 2% OINTMENT 1 APPLIC NASAL (08:45)
[2024-07-28] MEDS: PROTONIX 40 MG PO (08:46)
[2024-07-28] MEDS: SENOKOT-S 1 TABLET PO ×2 (08:46→20:51)
[2024-07-28] MEDS: TESSALON PERLES 200 MG PO ×3 (08:46→22:44)
[2024-07-28] MEDS: VITAMIN C 500 MG PO (08:46)
[2024-07-28] MEDS: FLOMAX 0.4 MG PO (08:46)
[2024-07-28] MEDS: LOW STRENGTH ASPIRIN 81 MG PO (08:47)
[2024-07-28] MEDS: FEOSOL 325 MG PO (08:47)
[2024-07-28] MEDS: PROSCAR 5 MG PO (08:47)
[2024-07-28] MEDS: NEURONTIN 100 MG PO ×3 (08:47→22:44)
[2024-07-28] MEDS: COLCHICINE 0.3 MG PO (08:47)
[2024-07-28] MEDS: ROBITUSSIN 200 MG PO ×4 (08:50→22:44)
--- NOTE | 2024-07-28 09:00 | PTCARENOTE ---
Pt AOx3, reports mild pain R CW, denies need for pain meds, Lidocaine patch applied. Junctional rhythm w/ occasional PACs noted, BP wnl. OOB w/ standby assist. 94% on RA. Trace LE edema. V wire insulated, dressing c/d/i. Surgical incisions noted R
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 Full assessment as documented. Will continue to monitor.
[2024-07-28] MEDS: LASIX 40 MG IV (10:57)
[2024-07-28] MEDS: NSS IV (11:34)
--- NOTE | 2024-07-28 11:53 | W.PN.CARDCBS ---
Today's Communication / Plan
-
He remains in junctional rhythm with some atrial beats.
Outpatient flecainide and beta-joe remain on hold.
Tentative permanent pacemaker 07/30/2024 if he continues with junctional rhythm given the need for beta-joe therapy.
He has a history of paroxysmal atrial fibrillation but was not on anticoagulation preop due to low [id number] score. Continue aspirin.
Monitor H/H, platelets up to 122. Hb 11.July 28.
Echo is stable with preserved LV function and stable valves.
Impression / Plan
-
.
Primary Flight Engineer Instructor: Dr. Mccoy
Impression:
Severe MR with prolapse and flail leaflets/multiple torn chords at P2 s/p radical MV repair, mod TR s/ simple TV repair, MAZE, GAVI clip via R mini thoracotomy 07/24/24
Paroxysmal atrial fibrillation
Chronic flecainide therapy
Post op junctional rhythm
BPH
Thyroid cancer s/p thyroidectomy
Hypothyroidism
GERD
Echo July 27, 2024: EF 50 to 55%, s/p Mitral valve repair. Mean gradients are 4mmHg. No mitral regurgitation is seen. s/p Tricuspid valve repair. Mean gradient 3 mmHg. Trace TR, PASP 20-25 mmHg.
Plan:
-s/p radical MV repair, mod TR s/ simple TV repair, MAZE, GAVI clip via R mini thoracotomy 07/24/24
He remains in junctional rhythm with some atrial beats.
Outpatient flecainide and beta-joe remain on hold.
Tentative permanent pacemaker 07/30/2024 if he continues with junctional rhythm given the need for beta-joe therapy.
He has a history of paroxysmal atrial fibrillation but was not on anticoagulation preop due to low [id number] score. Continue aspirin.
Monitor H/H, platelets up to 122. Hb 11.July 28.
Postop echo is stable with preserved LV function and stable valves.
Discussed with nursing.
Progress Note - Flight Engineer Instructor
Subjective
Date of Service: July 28, 2024
Pt seen and examined. No complaints. No chest pain or shortness of breath.
Objective
Labs:
07/28/24 04:46
07/28/24 04:46
Labs
Hgb 11.1 g/dL (13.0-18.0) L 07/28/24 04:46
Hct 34.3 % (39.0-52.0) L 07/28/24 04:46
Plt Count 122 10^3/uL (130-400) L D 07/28/24 04:46
PT 18.3 Sec (11.4-14.6) H 07/24/24 12:11
INR 1.49 07/24/24 12:11
APTT 32.0 Sec (23.4-35.0) 07/24/24 12:11
Sodium 139 mmol/L (135-145) 07/28/24 04:46
Potassium 5.0 mmol/L (3.5-5.1) 07/28/24 04:46
BUN 24 mg/dl (9-20) H 07/28/24 04:46
Creatinine 0.9 mg/dL (0.7-1.3) 07/28/24 04:46
Glucose 117 mg/dl (70-99) H 07/28/24 04:46
Vital Signs and I&O:
Vital Signs
Temp Pulse Resp BP Pulse Ox
98.2 F 70 16 130/81 95
07/28/24 08:00 07/28/24 10:57 07/28/24 04:30 07/28/24 10:57 07/28/24 09:21
Vital Signs
Temp Pulse Resp BP Pulse Ox
98.2 F 70 16 130/81 95
07/28/24 08:00 07/28/24 10:57 07/28/24 04:30 07/28/24 10:57 07/28/24 09:21
Intake & Output
07/26/24 07/27/24 07/28/24 07/29/24
06:59 06:59 06:59 06:59
Intake Total 1316.1 / 1338.7 172.6 / 182.6 250 / 250
Output Total 1335 / 1390 475 / 475 2400 / 2400
Balance -18.9 / -51.3 -302.4 / -292.4 -2150 / -2150
Physical Exam
Physical Exam
General: No acute distress, AAOX3
Neck: Negative JVD
Heart: Regular, Negative S3 positive S1/S2, Negative S4, No murmur
Lungs: CTA b/l, negative wheezes/rales/rhonchi
Abd: Positive BS, NT/ND, neg rebound/rigidity/guarding
Ext: Negative cyanosis/clubbing/edema
Neuro: nonfocal
--- NOTE | 2024-07-28 12:30 | PTCARENOTE ---
Follow CXR, 40mg IV Lasix ordered and given. VSS. Cough continues but pt states improved, secretions thinner and expectorating easier.
[2024-07-28] MEDS: ROXICODONE 2.5 MG PO (15:50)
--- NOTE | 2024-07-28 15:58 | PTCARENOTE ---
VSS. Pt walked halls w/ this RN, standby assist only. Noticed his work of breathing slightly increased, however pt denied feeling SOB. Cough continues which results in R Lateral chest pain 5/10, 2.5mg PO Oxycodone given at this time.
--- NOTE | 2024-07-28 21:00 | PTCARENOTE ---
Patient received resting in bed watching television. Family at bedside. Patient A+A+Ox3. No neurological deficits noted. Patient ambulating in room and to bathroom by self. Steady gait. No c/o headache, dizziness or lightheadedness. Room air.
SpO2 95%. Occasional coughing episode - Nonproductive. No c/o SOB. Junctional Rhythm with PAC's. Heart rate 70's. Blood pressure 142/77 (95). V-Wire insulated. Patient with no c/o chest pain, pressure or discomfort. Normoactive bowel
sounds. Positive BM. Voiding without difficulty. Right lateral chest incision/puncture sites intact and open to air - Surgical adhesive. Chest tube site open to air. Right groin incisions intact and open to air - Surgical adhesive. Positive,
palpable pulses. Trace edema. Patient with no c/o back or flank pain. Assessment as documented.
[2024-07-28] MEDS: MELATONIN 5 MG PO (22:44)
[2024-07-29] VITALS (8 sets, daily range): BP systolic 114–145; BP diastolic 77–82; BMI 29.8
--- NOTE | 2024-07-29 | PTCARENOTE ---
Patient sleeping without difficulty. No further changes from previous assessment.
--- NOTE | 2024-07-29 03:29 | W.PN.CT ---
Addendum entered and electronically signed by Meng Tomas MD 07/29/24 09:21:
Per EP note, planning PPM tomorrow
NPO post MN tonight
Addendum entered and electronically signed by Meng Tomas MD 07/29/24 09:20:
I saw and examined the patient.
The PA's note was reviewed and I agree with the note.
Comment:
POD#5 s/p MVRp, TVRp, MAZE, ELAA
No major overnight issues. Remains junction in 70s w/o pauses/bradycardia
OOB/IS/ambulate
Home hopefully tomorrow - will discuss mgmt of junction rhythm w/ EP
Original Note:
Today's Communication / Plan
-
Plan:
-No major issues overnight. Hemodynamically and neurologically intact
-Pt has been bradycardic with 1st deg AVB, as well as junctional rhythm post MAZE. BB and Flecainide currently on hold
-Rhythm this AM appears to be accelerated junctional @ 85 bpm. EP/Cardiology following for possible PPM
-Not on oral anticoagulation d/t low [id number] Score
-Repeat echo on 07/27 showed a well seated MV (MG 4 mmHg, no MR) and TV repairs (trace TR), LVEF 50-55%
-Cont current meds (ASA, Flomax, Proscar, iron, vit C, Protonix, Mucinex, Synthroid; hold BB and Flecainide)
-Encourage use of IS
-OOB into chair/Ambulate
-Home vs PPM placement tomorrow
Assessment / Plan
-
s/p mini Thoracotomy, MV Repair with 34mm band, 2 chelsea-chords, TV repair with 30mm band, MAZE, LAAE on 07/24/[address] Corley - POD #5
-severe MR with prolapse and flail leaflets/multiple torn chords at P2 s/p MV repair 07/24/24
-mod TR s/p TV repair
-p Afib on flecainide
-BPH
-hypothyroid
-GERD
-thyroid Ca s/p surgery 1992
-urolift 2022
-acute postop blood loss anemia-
-acute postop thrombocytopenia
-acute postop atelectasis
-acute postop hypovolemia with subsequent hypervolemia
-acute postop junctional rhythm postop
-suspected acute postop pericarditis- Colchicine started
Discussed patient care with: Cardiology, Nursing, Respiratory Therapy, Pharmacy and Care Team
Subjective
-
Date of Service: July 29, 2024
Pt c/o mild incisional pain, otherwise feels well. Ambulating halls without difficulty
Objective Data
-
PT 18.3 Sec (11.4-14.6) H 07/24/24 12:11
INR 1.49 07/24/24 12:11
APTT 32.0 Sec (23.4-35.0) 07/24/24 12:11
Vital Signs
Vital Signs
Temp Pulse Resp BP Pulse Ox
98.7 F 58 16 138/77 96
07/28/24 22:40 07/29/24 02:00 07/28/24 22:40 07/28/24 22:40 07/28/24 22:40
CT Intake/Output/Weight
07/28/24 07/28/24 07/29/24
06:59 18:59 06:59
Intake Total 240 / 250 480 / 720 240 / 720
Output Total 1530 / 1530
Balance 240 / -2150 -1050 / -810 240 / -810
SaO2: 96 (RA)
Physical Exam
-
General: Awake, Oriented and AOx3
Cardiovascular: Regular rate & rhythm, No Murmurs, No Rub and No Gallop
Respiratory: Decreased Breath Sounds (at bases, otherwise clear)
Sternum: Stable
Incision: Clean, Dry, Intact and Dressing Intact
Extremities: No Edema
Data Reviewed
-
Lab Results: Results Reviewed
Medications: Active Meds Reviewed
Chest X-Ray: Report Reviewed and Image Reviewed
ECG: Report Reviewed and Image Reviewed
[2024-07-29] MEDS: ROXICODONE 5 MG PO (05:20)
[2024-07-29] MEDS: SYNTHROID 100 MCG PO (05:20)
[2024-07-29] MEDS: TYLENOL 1000 MG PO ×3 (05:20→22:29)
--- NOTE | 2024-07-29 05:30 | PTCARENOTE ---
Patient A+A+Ox3. No neurological deficits noted. Patient ambulated to bathroom to void. Standing scale weight 89.0kg. AM labs collected and sent. EKG completed. CHG bath and linens changed. New dressing to Epicardial wire site and new dressing
to chest tube site. Roxicodone 5mg PO for pain management. Patient back to sleep. Assessment/Interventions as documented.
[2024-07-29 05:40] LABS: Hematocrit 35.3 % (39.0-52.0); Hemoglobin 11.8 g/dL (13.0-18.0); Mean Corp Hgb Conc. 33.4 g/dL (33.0-37.0); Mean Corpuscular Hgb 28.4 pg (27.0-31.0); Mean Corpuscular Volume 84.9 fL (80.0-94.0); Mean Platelet Volume 10.1 fL (7.4-10.4); Platelet Count 146 10^3/uL (130-400); Red Blood Cell Count 4.16 10^6/uL (4.70-6.10); Red Cell Dist. Width 14.7 % (11.5-14.5); White Blood Cell Count 14.6 10^3/uL (4.8-10.8)
[2024-07-29 05:49] LABS: Blood Urea Nitrogen 24 mg/dl (9-20); Calcium 8.1 mg/dl (8.4-10.2); Carbon Dioxide 26 mmol/L (22-30); Chloride 104 mmol/L (98-107); Estimated Creatinine Clearance 102 ml/min; Glucose 120 mg/dl (70-99); Potassium 3.6 mmol/L (3.5-5.1); Sodium 138 mmol/L (135-145); eGFR > 60.00
[2024-07-29] MEDS: KCL 40 MEQ PO (06:31)
--- NOTE | 2024-07-29 08:29 | PTCARENOTE ---
assumed care of pt from previous shift RN, Junctional rhythm on tele, VSS, + peripheral pulses, trace edema noted. Lungs diminished, pox 94% on RA. Harsh cough at times. Coughing and deep breathing encouraged. +bs, tolerating PO intake. Surgical
sites stable. Plan of care reviewed w the pt and questions encouraged.
[2024-07-29] MEDS: PROTONIX 40 MG PO (09:22)
[2024-07-29] MEDS: LIDOCAINE 4% PATCH 1 PATCH TOPICAL (09:22)
[2024-07-29] MEDS: ROBITUSSIN 200 MG PO ×4 (09:22→22:29)
[2024-07-29] MEDS: SENOKOT-S 1 TABLET PO ×2 (09:23→20:18)
[2024-07-29] MEDS: LOW STRENGTH ASPIRIN 81 MG PO (09:23)
[2024-07-29] MEDS: PROSCAR 5 MG PO (09:23)
[2024-07-29] MEDS: NEURONTIN 100 MG PO ×3 (09:23→22:28)
[2024-07-29] MEDS: VITAMIN C 500 MG PO (09:23)
[2024-07-29] MEDS: FLOMAX 0.4 MG PO (09:23)
[2024-07-29] MEDS: TESSALON PERLES 200 MG PO (09:23)
[2024-07-29] MEDS: COLCHICINE 0.3 MG PO (09:23)
[2024-07-29] MEDS: FEOSOL 325 MG PO (09:23)
[2024-07-29] MEDS: NSS IV (11:34)
--- NOTE | 2024-07-29 12:28 | W.PN.CARDCBS ---
Today's Communication / Plan
-
Tentative pacer tomorrow 07/30
Impression / Plan
-
.
Primary Head Cook: Dr. Mccoy
Impression:
Severe MR with prolapse and flail leaflets/multiple torn chords at P2 s/p radical MV repair, mod TR s/ simple TV repair, MAZE, GAVI clip via R mini thoracotomy 07/24/24
Paroxysmal atrial fibrillation
Chronic flecainide therapy
Post op junctional rhythm
BPH
Thyroid cancer s/p thyroidectomy
Hypothyroidism
GERD
Echo July 27, 2024: EF 50 to 55%, s/p Mitral valve repair. Mean gradients are 4mmHg. No mitral regurgitation is seen. s/p Tricuspid valve repair. Mean gradient 3 mmHg. Trace TR, PASP 20-25 mmHg.
Plan:
-s/p radical MV repair, mod TR s/ simple TV repair, MAZE, GAVI clip via R mini thoracotomy 07/24/24
He remains in junctional rhythm with some atrial beats.
Outpatient flecainide and beta-joe remain on hold.
Tentative permanent pacemaker 07/30/2024 if he continues with junctional rhythm given the need for beta-joe therapy.
He has a history of paroxysmal atrial fibrillation but was not on anticoagulation preop due to low [id number] score. Continue aspirin.
Monitor H/H, platelets up to 146. Hb 11.8 July 29.
Postop echo is stable with preserved LV function and stable valves.
Discussed with nursing and at bedside.
Progress Note - Head Cook
Subjective
Date of Service: July 29, 2024
Pt seen and examined. No complaints. No chest pain or shortness of breath.
Objective
Labs:
07/29/24 05:08
07/29/24 05:08
Labs
Hgb 11.8 g/dL (13.0-18.0) L 07/29/24 05:08
Hct 35.3 % (39.0-52.0) L 07/29/24 05:08
Plt Count 146 10^3/uL (130-400) 07/29/24 05:08
PT 18.3 Sec (11.4-14.6) H 07/24/24 12:11
INR 1.49 07/24/24 12:11
APTT 32.0 Sec (23.4-35.0) 07/24/24 12:11
Sodium 138 mmol/L (135-145) 07/29/24 05:08
Potassium 3.6 mmol/L (3.5-5.1) D 07/29/24 05:08
BUN 24 mg/dl (9-20) H 07/29/24 05:08
Creatinine 0.8 mg/dL (0.7-1.3) 07/29/24 05:08
Glucose 120 mg/dl (70-99) H 07/29/24 05:08
Vital Signs and I&O:
Vital Signs
Temp Pulse Resp BP Pulse Ox
98.4 F 72 16 127/82 94
07/29/24 08:07 07/29/24 08:07 07/29/24 06:00 07/29/24 08:07 07/29/24 10:25
Vital Signs
Temp Pulse Resp BP Pulse Ox
98.4 F 72 16 127/82 94
07/29/24 08:07 07/29/24 08:07 07/29/24 06:00 07/29/24 08:07 07/29/24 10:25
Intake & Output
07/27/24 07/28/24 07/29/24 07/30/24
06:59 06:59 06:59 06:59
Intake Total 172.6 / 182.6 250 / 250 960 / 960
Output Total 475 / 475 2400 / 2400 2029 / 2029
Balance -302.4 / -292.4 -2150 / -2150 -1070 / -1070
Physical Exam
Physical Exam
General: No acute distress, AAOX3
Neck: Negative JVD
Heart: Regular, Negative S3 positive S1/S2, Negative S4, No murmur
Lungs: CTA b/l, negative wheezes/rales/rhonchi
Abd: Positive BS, NT/ND, neg rebound/rigidity/guarding
Ext: Negative cyanosis/clubbing/edema
Neuro: nonfocal
[2024-07-29] MEDS: ROXICODONE 2.5 MG PO ×2 (13:05→20:18)
--- NOTE | 2024-07-29 16:27 | PTCARENOTE ---
Received pt from previous RN; pt AAOx3 and resting comfortably in chair; pt ambulating in room; Junctional on monitor and VSS; Epicardial V wire insulated; Lungs diminished; positive bowel sounds; pt voiding yellow urine; palpable pulses throughout;
no edema noted; all surgical sites C/D/I;family at bedside.
[2024-07-29] MEDS: CALCIUM GLUCONATE 100 IV (20:50)
[2024-07-29] MEDS: MELATONIN 5 MG PO (22:29)
[2024-07-30 02:41] VITALS: BP 146/78
[2024-07-30] MEDS: ROXICODONE 2.5 MG PO (02:44)
[2024-07-30 03:16] LABS: Blood Urea Nitrogen 22 mg/dl (9-20); Calcium 7.7 mg/dl (8.4-10.2); Carbon Dioxide 23 mmol/L (22-30); Chloride 109 mmol/L (98-107); Estimated Creatinine Clearance 117 ml/min; Glucose 118 mg/dl (70-99); Magnesium 1.8 mg/dl (1.6-2.3); Sodium 138 mmol/L (135-145); eGFR > 60.00
--- NOTE | 2024-07-30 03:37 | W.PN.CT ---
Today's Communication / Plan
-
Plan:
-No major issues overnight. Hemodynamically and neurologically intact
-Pt has been bradycardic with 1st deg AVB, as well as junctional rhythm post MAZE. BB and Flecainide currently on hold
-Pt was sinus elton @ 56 bpm during sleep overnight and currently NSR @ 70 bpm, did have some intermittent junctional rhythm. EP/Cardiology following for possible PPM
-Currently NPO, may be able to lift NPO status this AM as pt does not appear to warrant PPM this AM
-Not on oral anticoagulation d/t low [id number] Score
-Repeat echo on 07/27 showed a well seated MV (MG 4 mmHg, no MR) and TV repairs (trace TR), LVEF 50-55%
-Cont current meds (ASA, Flomax, Proscar, iron, vit C, Protonix, Mucinex, Synthroid; hold BB and Flecainide)
-Encourage use of IS
-OOB into chair/Ambulate
-Home likely today, maybe with RhythmStar monitor
Assessment / Plan
-
s/p mini Thoracotomy, MV Repair with 34mm band, 2 chelsea-chords, TV repair with 30mm band, MAZE, LAAE on 07/24/[address] Corley - POD #6
-severe MR with prolapse and flail leaflets/multiple torn chords at P2 s/p MV repair 07/24/24
-mod TR s/p TV repair
-p Afib on flecainide
-BPH
-hypothyroid
-GERD
-thyroid Ca s/p surgery 1992
-urolift 2022
-acute postop blood loss anemia-
-acute postop thrombocytopenia
-acute postop atelectasis
-acute postop hypovolemia with subsequent hypervolemia
-acute postop junctional rhythm postop
-suspected acute postop pericarditis- Colchicine started
Discussed patient care with: Cardiology, Nursing, Respiratory Therapy, Pharmacy and Care Team
Subjective
-
Date of Service: July 30, 2024
Pt c/o mild incisional pain, otherwise feels well
Objective Data
-
Lab Results
07/29/24 05:08
07/30/24 02:50
PT 18.3 Sec (11.4-14.6) H 07/24/24 12:11
INR 1.49 07/24/24 12:11
APTT 32.0 Sec (23.4-35.0) 07/24/24 12:11
Vital Signs
Vital Signs
Temp Pulse Resp BP Pulse Ox
99.0 F 66 18 139/79 97
07/29/24 22:33 07/29/24 22:29 07/29/24 22:33 07/29/24 22:29 07/29/24 22:33
CT Intake/Output/Weight
07/29/24 07/29/24 07/30/24
06:59 18:59 06:59
Intake Total 480 / 960
Output Total 500 / 2029
Balance -20 / -1070
SaO2: 97 (RA)
Physical Exam
-
General: Awake, Oriented and AOx3
Cardiovascular: Regular rate & rhythm, No Murmurs, No Rub and No Gallop
Respiratory: Decreased Breath Sounds (at bases, otherwise clear)
Sternum: Stable
Incision: Clean, Dry, Intact and Dressing Intact
Extremities: Other (+trace edema )
Data Reviewed
-
Lab Results: Results Reviewed
Medications: Active Meds Reviewed
Chest X-Ray: Report Reviewed and Image Reviewed
ECG: Report Reviewed and Image Reviewed
--- NOTE | 2024-07-30 04:11 | PTCARENOTE ---
Pt received from at change of shift. ambulating in the room as self. POC discussed- pt verbalized understanding. Voice hoarse with a freq weak nonproductive cough. Pt reports 9/10 R lateral cp @ incision site with coughing. PRN BHUPENDRA provided per
MAR. All dressings changed. V wire insulated. Junctional/ SR on the monitor 50s- 60s. L IV placed for possible PPM.
[2024-07-30] MEDS: TYLENOL 1000 MG PO (05:35)
[2024-07-30] MEDS: SYNTHROID 100 MCG PO (05:35)
[2024-07-30] MEDS: MAGNESIUM OXIDE 500 MG PO ×2 (05:35→08:42)
[2024-07-30] MEDS: CALCIUM GLUCONATE 130 MG IV (05:35)
[2024-07-30 07:09] VITALS: BP 143/80
[2024-07-30] MEDS: COLCHICINE 0.3 MG PO (08:42)
[2024-07-30] MEDS: PROSCAR 5 MG PO (08:43)
[2024-07-30] MEDS: LOW STRENGTH ASPIRIN 81 MG PO (08:43)
[2024-07-30] MEDS: VITAMIN C 500 MG PO (08:43)
[2024-07-30] MEDS: LIDOCAINE 4% PATCH 1 PATCH TOPICAL (08:43)
[2024-07-30] MEDS: FLOMAX 0.4 MG PO (08:43)
[2024-07-30] MEDS: NEURONTIN 100 MG PO (08:43)
[2024-07-30] MEDS: PROTONIX 40 MG PO (08:43)
[2024-07-30] MEDS: SENOKOT-S 1 TABLET PO (08:43)
[2024-07-30] MEDS: ROBITUSSIN 200 MG PO (08:43)
[2024-07-30] MEDS: FEOSOL 325 MG PO (08:43)
--- NOTE | 2024-07-30 09:22 | W.PN.CARDCBS ---
Addendum entered and electronically signed by Christopher Stewart MD 07/30/24 12:24:
Patient seen, interviewed and examined by me.
Well-appearing, no acute distress
Regular rate and rhythm with normal S1 and S2, no S3 no S4. There is a grade 1/6 apical holosystolic murmur and no rubs. PMI is normally placed.
Lungs are clear to auscultation bilaterally without wheezes rales or rhonchi.
Abdomen soft nontender nondistended with normoactive bowel sounds
Extremities show trace pretibial edema bilaterally no clubbing or cyanosis.
Neurologic exam is grossly nonfocal.
From a cardiology standpoint biggest question for us was does he need permanent pacemaker as postsurgery he has had periods of sinus bradycardia with junctional escape's. Junctional rates 50s to 60 bpm.
I have spoken to the patient, his nursing staff, CT surgical staff. I reviewed telemetry in detail.
He does have a component of sinus christa dysfunction without any evidence of heart block after radical mitral valve repair, simple tricuspid valve repair, maze, left atrial clip via right minithoracotomy on July 24, 2024.
He has been asymptomatic. He has been up and ambulating with no dizziness. He is experience no dizziness near syncope or syncope.
I had a long discussion with the patient regarding indications for pacing and at this point he does not have absolute indication for pacing and I am hopeful that his sinus node will further recover. Regardless indication for sinus node dysfunction
is based on symptoms and he is currently asymptomatic. This may change as he does also have paroxysmal atrial fibrillation and had previously been on flecainide which we are now holding due to his sinus bradycardia. In the future if he requires
antiarrhythmic drug therapy for recurrent atrial fibrillation is likely he would develop symptomatic sick sinus syndrome in which case permanent pacing should be considered.
I have answered all of his questions. He agrees with my recommendations.
I recommended against permanent pacemaker implantation at this time.
Hold flecainide and beta-joe
Obtain outpatient rhythm Star monitoring to assess for any significant bradycardia arrhythmias and/or symptoms. This may alter our recommendations.
Original Note:
Today's Communication / Plan
-
No need for PPM at this time.
Continue to hold BB and flecainide.
Discharge with 14 day Rhythm star monitor in place.
Follow up arranged
Impression / Plan
-
Primary Plaster Machine Operator: Dr. Mccoy
Impression:
Severe MR with prolapse and flail leaflets/multiple torn chords at P2, mod TR
s/p radical MV repair, simple TV repair, MAZE, GAVI clip via R mini thoracotomy 07/24/24
Paroxysmal atrial fibrillation
Chronic flecainide therapy
Post-op junctional rhythm 06/2024
BPH
Thyroid cancer s/p thyroidectomy
Hypothyroidism
GERD
Echo 07/27/2024: EF 50 to 55%, s/p Mitral valve repair. Mean gradients are 4mmHg. No mitral regurgitation is seen. s/p Tricuspid valve repair. Mean gradient 3 mmHg. Trace TR, PASP 20-25 mmHg.
Plan:
-s/p radical MV repair, mod TR s/ simple TV repair, MAZE, GAVI clip via R mini thoracotomy 07/24/24.
-Noted to have intermittent junctional rhythm post-op. Flecainide and BB on hold.
-There was consideration for PPM, however HRs appear stable and rhythm improving, in SR this AM w/ intermittent junctional rhythm.
-Will hold off on device placement at this time and instead will discharge with 14 day rhythm star monitor in place to continue to follow.
-Known h/o paroxysmal atrial fibrillation, not on OAC preop due to low [id number] score. Continue aspirin.
-Post-op echo stable with EF 50-55% as noted above.
-Hgb stable.
-Continue post-op care.
-Cardiology follow up arranged.
Progress Note - Plaster Machine Operator
Subjective
Date of Service: July 30, 2024
No complaints. Feeling well at this time.
Objective
Labs:
07/29/24 05:08
07/30/24 02:50
Labs
Hgb 11.8 g/dL (13.0-18.0) L 07/29/24 05:08
Hct 35.3 % (39.0-52.0) L 07/29/24 05:08
Plt Count 146 10^3/uL (130-400) 07/29/24 05:08
PT 18.3 Sec (11.4-14.6) H 07/24/24 12:11
INR 1.49 07/24/24 12:11
APTT 32.0 Sec (23.4-35.0) 07/24/24 12:11
Sodium 138 mmol/L (135-145) 07/30/24 02:50
Potassium 4.0 mmol/L (3.5-5.1) 07/30/24 02:50
BUN 22 mg/dl (9-20) H 07/30/24 02:50
Creatinine 0.7 mg/dL (0.7-1.3) 07/30/24 02:50
Glucose 118 mg/dl (70-99) H 07/30/24 02:50
Vital Signs and I&O:
Vital Signs
Temp Pulse Resp BP Pulse Ox
99.1 F 59 18 143/80 96
07/30/24 07:11 07/30/24 08:00 07/30/24 07:11 07/30/24 07:09 07/30/24 07:11
Vital Signs
Temp Pulse Resp BP Pulse Ox
99.1 F 59 18 143/80 96
07/30/24 07:11 07/30/24 08:00 07/30/24 07:11 07/30/24 07:09 07/30/24 07:11
Intake & Output
07/28/24 07/29/24 07/30/24 07/31/24
06:59 06:59 06:59 06:59
Intake Total 250 / 250 960 / 960
Output Total 2400 / 2400 2029 / 2029
Balance -2150 / -2150 -1070 / -1070
Physical Exam
Physical Exam
GEN: No distress, awake, alert, oriented x3
HEENT: supple, anicteric, mmm
LUNGS: CTA b/l, no wheezes/rales
CV: Reg, S1/S2, no murmur
EXT: No clubbing, cyanosis, or edema
NEURO: Gross non-focal
SKIN: Warm, dry, no rash
[2024-07-30 09:50] VITALS: BP 139/79
--- NOTE | 2024-07-30 09:51 | W.DCSUMMARY ---
Discharge Summary
Discharge Data
Date of Admission: 07/24/24
Date of Discharge: 07/30/24
-
Pending Results: No
Hospital Course
Primary care physician: Daquan Rivera
Outpatient senior ui software engineer: Jas Mccoy
Inpatient consultants: [facility] Cardiology, pulmonary field secretary
Procedures:
1. Mitral valve repair, tricuspid valve repair, maze, left atrial appendage exclusion
Primary Diagnosis:
1. Severe mitral valve insufficiency symptomatic with paroxysmal atrial fibrillation
Secondary Diagnoses:
1. Tricuspid valve regurgitation
2. Paroxysmal atrial fibrillation
3. BPH
4. Hypothyroidism
5. GERD
6. Thyroid cancer status post surgery 1992
7. UroLift in 2022
8. acute postop blood loss anemia-expected
9. acute postop thrombocytopenia-expected
10. acute postop junctional rhythm
11. acute postop pericarditis on ECG- Colchicine started
12. acute post-op hoarseness
HPI: 63-year-old male was electively admitted on 07/01 09/23 for mitral and tricuspid valve repair, maze, left atrial appendage exclusion due to severe mitral regurgitation, moderate tricuspid valve regurgitation and paroxysmal atrial
fibrillation
Hospital course: Patient underwent a radical mitral valve repair (imbrication of P2 onto P1 on cleft closure/free margin remodeling at P2 and P3 with placement of 2 Mayking-Zechariah cords and a 34 mm band annuloplasty), tricuspid valve repair [30 mm band
annuloplasty], modified left atrial maze, open surgical using cryo, left atrial appendage exclusion [35 mm clip] by Dr. Jordy Corley. Postprocedure JJ reported an EF of 50%, MV mean gradient of 1 mmHg, TV mean gradient of 1 mmHg. Patient received
no intraoperative blood products and returned to CVICU on dobutamine, Precedex, and insulin. He was noted to be in junctional rhythm and required V pacing. Patient is extubated today surgery. Dobutamine was weaned to 1mcg/kg/min with mixed venous
oxygen saturations maintained greater than 60%. Dobutamine was weaned off on postoperative day #2. Rate lowering agents were held due to continued junctional rhythm. Colchicine was initiated for pericardial rub and pericarditis noted on ECG.
Patient complained of cough and hoarse voice that was treated with guaifenesin. Patient was diuresed on postoperative day #3 with 40 mg of IV Lasix and resultant urine output of 2400 cc in 12 hours. Pre discharge TTE on 07/27 reported EF of 50-55%,
no MR with MV mean gradient 4 mmHg, trace TR with TV mean gradient 3 mmHg postoperative day #5, patient was noted to have periods of sinus rhythm interspersed with junctional rhythm. Pacemaker was planned for 07/30. On postoperative day #6, patient
was noted to be in sinus rhythm and pacer not indicated by EP Dr. Stewart. Temporary ventricular wires were clipped to skin level. A heart monitor was ordered for discharge by cardiology.
Home medication changes:
Stop: Flecanide
Discharge Plan
-
Patient Disposition: Home (Routine Discharge)
Discharge Diagnosis/Procedures: mitral and tricuspid repair, MAZE, left atrial appendage clip
Condition: Good
Diet: Low Cholesterol and Low Sodium
Activity: No strenuous activity
Driving Restrictions: Not until seen by your Dr
Bathing Restrictions: OK to Shower
Other Services: Cardiac Rehab
Specialty Instructions: Weigh Daily- Call MD for wt gain/loss 3 lbs overnight/5 lbs in 1 week
Referrals:
CT Transitional Care Nurse [Outside] (The Cardiothoracic Transitional Care Nurse will call you to set up a visit in 1-2 days.)
[facility] [Outside] - 08/09/24 12:30 pm
Joceline Ponce PA-C [Specified Professional Personl] - 09/04/24 9:00 am
Jordy Corley MD [Active] - 08/28/24 1:45 pm
Daquan Love MD [Family Provider] -
Prescriptions:
New
acetaminophen 325 mg Tablet
650 mg PO Q4HPRN PRN (Reason: mild pain,headache,temp >101F ) Qty: 0 0RF
gabapentin 100 mg Capsule
100 mg PO TID Qty: 30 0RF
oxycodone 5 mg Tablet
5 mg PO Q4HPRN PRN (Reason: severe pain) Qty: 10 0RF
cyclobenzaprine 10 mg Tablet
5 mg PO Q8HPRN PRN (Reason: muscle spasm) Qty: 10 0RF
colchicine 0.6 mg Tablet
0.6 mg PO DAILY Qty: 30 2RF
Chloraseptic Sore Throat 6-10 mg Lozenge
1 agustina PO Q4HPRN PRN (Reason: sore throat) Qty: 18 0RF
Continued
levothyroxine [Synthroid] 100 MCG tablet
100 mcg PO DAILY
psyllium husk [Metamucil] 0.4 gram Capsule
0.4 g PO BID
aspirin 81 mg Tablet,Delayed Release (Dr/Ec)
81 mg PO DAILY
alfuzosin 10 mg Tablet Extended Release 24 Hr
10 mg PO DAILY
finasteride 5 mg Tablet
5 mg PO DAILY
Discontinued
flecainide 50 mg Tablet
50 mg PO BID
ibuprofen 600 mg Tablet
600 mg PO DAILY
Discharge Orders:
Discharge Patient (As Directed); Ordered 07/30/24
Ordered By: Emily Owens
Care Plan Goals
Care Plan Goals:
Problem: Readiness for enhanced knowledge related to diagnosis and treatment plan
Goal: Understand your diagnosis and treatment plan needs, including medications if applicable.
Instructions: Know your diagnosis, underlying causes and treatment plan options, including medications if applicable. Consult with your health care team to learn about your diagnosis and treatment plan, including medications if applicable.
Discharge Date and Time
Print Language: BOLIVIAN
[2024-07-30] MEDS: ANESTHETIC LOZENGE 1 LOZENGE PO (09:54)
--- NOTE | 2024-07-30 10:20 | W.PN.UPDATE ---
Update Note
Progress Note Update
Maintaining sinus rhythm. Case discussed with EP Dr. Stewart who feels permanent pacer is not indicated. Temporary ventricular wires clipped at skin level. A heart monitor will be ordered by cardiology on discharge.
[2024-07-30 11:06] VITALS: BP 132/79
[2024-07-30 11:11] VITALS: BP 145/88
[2024-07-30 11:18] VITALS: BP 132/79; BP 145/88; PULSE 63; O2SAT 98
[2024-07-30] MEDS: NSS IV (12:47)
== END 2024-07-30 13:23 | disposition home or self-care (01) | DRG 219 ==
LOC: IVU 05:03
PROVIDERS: Anesthesiology; Clinical Nurse Specialist Acute Care; Nurse Practitioner; Physician Assistant Medical; ADMITTING PHYSICIAN Thoracic Surgery (Cardiothoracic Vascular Surgery); CONSULT PHYSICIAN Internal Medicine Critical Care Medicine; FAMILY PHYSICIAN Family Medicine
PROC: B24BZZ4 Ultrasonography of Heart with Aorta, Transesophageal (ICD-10-PCS; 2024-07-24)
PROC: 02L70CK Occlusion of Left Atrial Appendage with Extraluminal Device, Open Approach (ICD-10-PCS; 2024-07-24)
PROC: 02580ZZ Destruction of Conduction Mechanism, Open Approach (ICD-10-PCS; 2024-07-24)
PROC: 02UJ0JZ Supplement Tricuspid Valve with Synthetic Substitute, Open Approach (ICD-10-PCS; 2024-07-24)
PROC: 02UG0JZ Supplement Mitral Valve with Synthetic Substitute, Open Approach (ICD-10-PCS; 2024-07-24)
PROC: 5A1221Z Performance of Cardiac Output, Continuous (ICD-10-PCS; 2024-07-24)
DX: I34.0 Nonrheumatic mitral (valve) insufficiency (principal); I51.1 Rupture of chordae tendineae, not elsewhere classified; D62 Acute posthemorrhagic anemia; I30.9 Acute pericarditis, unspecified; J98.11 Atelectasis; I36.1 Nonrheumatic tricuspid (valve) insufficiency; K21.9 Gastro-esophageal reflux disease without esophagitis; N40.0 Benign prostatic hyperplasia without lower urinary tract symptoms; I48.0 Paroxysmal atrial fibrillation; E89.0 Postprocedural hypothyroidism; R73.9 Hyperglycemia, unspecified; E78.5 Hyperlipidemia, unspecified; D69.59 Other secondary thrombocytopenia; R05.9 Cough, unspecified; R49.0 Dysphonia; E86.1 Hypovolemia; E87.70 Fluid overload, unspecified; Z79.82 Long term (current) use of aspirin; Z79.899 Other long term (current) drug therapy; Z85.850 Personal history of malignant neoplasm of thyroid
CPT/HCPCS: 93308; 33259; 36415; 71045; 71046; 80048; 80053; 81003; 81015; 82248; 82330; 82565; 82805; 82810; 82947; 82962; 83036; 83735; 84132; 84302; 84520; 85014; 85018; 85025; 85027; 85049; 85610; 85730; 86850; 86900; 86901; 86920; 87070; 93005; 93312; 93320; 93321; 93325; 93880; 94002; 94640; J2916

== ENCOUNTER 2024-08-17 10:36 | Inpatient (IN) | payer OTHER, SELFPAY ==
[2024-08-17] VITALS (24 sets, daily range): BP systolic 100–117; BP diastolic 71–80; BMI 26.5
--- NOTE | 2024-08-17 06:29 | ED.GENMED ---
History of Present Illness
General
Chief Complaint: Post Operative Problem(s)
Time Seen by Provider: 08/17/24 06:28
History of Present Illness
History of Present Illness:
TIME OF INITIAL ENCOUNTER: 6:30 AM
HPI: The patient presents with lower abdominal pain that started about 6 hours ago. 3 weeks ago, he had mitral valve surgery complicated by postoperative bronchitis and was on amoxicillin. He has been constipated recently. He has never thrown up
and indicates that he is never thrown up and his . No fevers. He has been on oxycodone and gabapentin postoperatively. He was diagnosed with a urinary tract infection recently and is on Levaquin.
EXAM:
GENERAL: The patient appears uncomfortable
HEENT: Moist oral mucosa
CARDIOVASCULAR: No murmurs, normal heart rate, regular rhythm, No chest wall tenderness
PULMONARY: No respiratory distress, breath sounds are clear and equal
ABDOMEN: Soft with no peritoneal signs, moderate to severe diffuse abdominal tenderness
NEUROLOGIC: Excellent strength all extremities, no coordination deficits
PSYCHIATRIC: Appropriate mental status, normal insight and judgement
EXTREMITIES: Nontender, no edema, moves all extremities equally
SKIN: No rash, no lesions
NUMBER AND COMPLEXITY OF PROBLEMS ADDRESSED AT THE ENCOUNTER
� Chronic conditions affecting care: Diverticular disease, atrial fibrillation, mitral valve regurgitation status post surgery, hypothyroidism, thyroid cancer 1993 with partial thyroidectomy
� Acute Exacerbation and/or Progression of Chronic Illness: This is an acute problem
� Differential Diagnosis includes: Diverticulitis, bowel perforation, mesenteric adenitis, constipation
AMOUNT AND/OR COMPLEXITY OF DATA TO BE REVIEWED AND ANALYZED
� I performed an independent evaluation of and my interpretation is:
EKG:
CT: CT personally reviewed and I agree with radiologist interpretation of severe diverticulitis with microperforation
X-rays:
Laboratory Studies: White count 21.7, normal hemoglobin, chemistries unremarkable, troponin 0.069 of doubtful clinical significance as the patient just had cardiothoracic surgery
Other:
� Review of other/old records: I reviewed operative note from 07/30/2024�patient had mitral valve repair, tricuspid valve repair, Maze procedure, left atrial appendage occlusion
� Clinical information was obtained by an independent historian: I spoke to at bedside
� Prescriptions/Medications Considered but not given:
� Further testing considered but not performed:
RISK OF COMPLICATIONS AND/OR MORBIDITY OR MORTALITY OF PATIENT MANAGEMENT
� Social determinants of health affecting care: Lives at home
� Discussion with other providers: Sent messages to both colorectal surgery and hospitalist regarding CT findings
� Escalation of care including admission/observation vs risk of discharge considered: The patient appeared very uncomfortable upon arrival. I have ordered Dilaudid and Zofran and fluids. Will obtain CT imaging. At 7 AM, pain
remains severe and is described as worsening. His white count is almost 22,000. Will send immediately for CT without waiting for labs. Of note recent creatinine was normal.
ANY OTHER UPDATES:
CT does show diverticulitis with microperforation. He is already on antibiotics. Started on Zosyn.
Past History
Past History
ED Past Medical History: Hypothyroidism and Other (Kidney stone)
ED Past Surgical History: Other (1993: Partial thyroidectomy. Takes Synthroid 0.1 mg daily)
Social History
Tobacco: Non-smoker
Alcohol: None
Drug: None
Personal: Single (lives with son)
Living: with family (lives with son)
Employment: Employed
Family History
Family History: Hypertension
Phy Exam
Physical Exam
Physical Exam:
See HPI
Course
Orders/Labs/Results
Orders:
Orders
08/17/24 06:23
Electrocardiogram (*1) Urgent
Reason for Study: Fatigue / Weakness
08/17/24 06:24
EKG- Treatment ONCE
08/17/24 06:32
Complete Blood Count/With Diff Urgent
Comprehensive Metabolic Panel Urgent
Troponin I Urgent
08/17/24 06:40
CT Abd/pelvis W Iv Cont Urgent
Comment:
Reason For Exam: abd pain severe, h/o diverticulitis
0.9% Sodium Chloride 1000 ml [Nss] 1,000 ml IV BOLUS
HYDROmorphone [Dilaudid] 1 mg IV NOW STA
Ondansetron Injectable [Zofran] 4 mg IV NOW STA
08/17/24 08:40
Piperacillin/Tazo 3.375 Gram [Zosyn] 3.375 gram in 50 ml IV NOW
08/17/24 09:14
HYDROmorphone [Dilaudid] 1 mg IV NOW STA
Abnormal Lab Results
08/17/24
06:32
WBC 21.7 H 10^3/uL
(4.8-10.8)
Abs Immat Gran (auto) 0.1 H 10^3/uL
(0-0.05)
Absolute Neuts (auto) 11.2 H 10^3/uL
(1.4-6.5)
Absolute Lymphs (auto) 9.4 H 10^3/uL
(1.2-3.4)
Absolute Monos (auto) 0.9 H 10^3/uL
(0.1-0.6)
BUN 22 H mg/dl
(9-20)
Glucose 134 H mg/dl
(70-99)
Troponin I 0.069 H* ng/ml
08/17/24 06:32
08/17/24 06:32
Vital Signs
Initial and Last Documented VS:
Initial Vital Signs
Pulse Resp BP Pulse Ox
84 20 108/73 95
08/17/24 06:16 08/17/24 06:16 08/17/24 06:16 08/17/24 06:16
Last Documented Vital Signs
Temp Pulse Resp BP Pulse Ox
36.7 C 85 18 115/71 99
08/17/24 06:17 08/17/24 10:07 08/17/24 08:00 08/17/24 08:00 08/17/24 06:30
*Critical Care Note
Total Time (30-74mins, 75-104mins- exclusive of procedures): Not Applicable
ED Attending Note
-
Portions of this chart may have been created with voice recognition software.� Occasional wrong word or��sound alike� substitutions may have occurred due to the inherent limitations of voice recognition software.
Discharge Plan
Departure
Patient Disposition: Admit
Date of Disposition: 08/17/24
Time of Disposition: 08:45
Presentation/result/management discussed w/ accepting MD/DO: Hospitalist
Discharge Problem:
Diverticulitis
Prescriptions:
No Action
levothyroxine [Synthroid] 100 MCG tablet
100 mcg PO DAILY
psyllium husk [Metamucil] 0.4 gram Capsule
1.8 g PO BID
aspirin 81 mg Tablet,Delayed Release (Dr/Ec)
81 mg PO DAILY
gabapentin 100 mg Capsule
100 mg PO TID Qty: 30 0RF
tamsulosin [Flomax] 0.4 mg Capsule
0.4 mg PO DAILY
levofloxacin 500 mg Tablet
500 mg PO DAILY
Rx Instructions:
for 10 days starting 08/14/24
oxycodone 5 mg tablet
5 mg PO NOON
Referrals:
Daquan Love MD [Family Provider] -
Interventions
Interventions:
*Risk Screen - Suicide Last Done: 08/17/24 06:28
*General Assessment Last Done: 08/17/24 06:29
*Neglect/Abuse Screening Last Done: 08/17/24 06:29
*ED- Fall Risk Assessment Last Done: 08/17/24 06:29
*ED COVID-19 Vaccine History Last Done: 08/17/24 06:29
ED-Skin Assessment Last Done: 08/17/24 06:29
Discharge Date and Time
Print Language: KINYARWANDA
[2024-08-17] MEDS: DILAUDID 1 MG IV ×2 (06:48→09:25)
[2024-08-17] MEDS: ZOFRAN 4 MG IV (06:48)
[2024-08-17] MEDS: NSS 1000 IV ×2 (06:49→15:18)
[2024-08-17 06:55] LABS: Hematocrit 42.6 % (39.0-52.0); Hemoglobin 14.1 g/dL (13.0-18.0); Mean Corp Hgb Conc. 33.1 g/dL (33.0-37.0); Mean Corpuscular Hgb 27.6 pg (27.0-31.0); Mean Corpuscular Volume 83.5 fL (80.0-94.0); Mean Platelet Volume 10.3 fL (7.4-10.4); Platelet Count 278 10^3/uL (130-400); Red Cell Dist. Width 13.2 % (11.5-14.5); White Blood Cell Count 21.7 10^3/uL (4.8-10.8)
[2024-08-17 07:08] LABS: ALT (SGPT) 36 U/L (0-50); AST (SGOT) 27 U/L (17-59); Albumin 3.7 g/dl (3.5-5.0); Alkaline Phosphatase 103 U/L (38-126); Blood Urea Nitrogen 22 mg/dl (9-20); Calcium 9.5 mg/dl (8.4-10.2); Carbon Dioxide 24 mmol/L (22-30); Chloride 104 mmol/L (98-107); Estimated Creatinine Clearance 77 ml/min; Glucose 134 mg/dl (70-99); Potassium 4.5 mmol/L (3.5-5.1); Sodium 138 mmol/L (135-145); Total Bilirubin 1.3 mg/dl (0.2-1.3); Total Protein 7.4 g/dl (6.3-8.2); eGFR > 60.00
[2024-08-17 07:15] LABS: Troponin I 0.069 ng/ml
[2024-08-17 07:48] LABS: % Basophils 0.2 % (0-2); % Eosinophils 0.5 % (0-6); % Immature Granulocytes 0.4 % (0-0.5); % Lymphocytes 43.2 % (20.5-51.1); % Monocytes 4.1 % (1.7-9.3); % Neutrophils 51.6 % (42.2-75.2); Absolute Basophils 0.1 10^3/uL (0-0.2); Absolute Eosinophils 0.1 10^3/uL (0-0.7); Absolute Immature Granulocytes 0.1 10^3/uL (0-0.05); Absolute Lymphocytes 9.4 10^3/uL (1.2-3.4); Absolute Monocytes 0.9 10^3/uL (0.1-0.6); Absolute Neutrophils 11.2 10^3/uL (1.4-6.5); Nucleated Red Blood Cells % 0 % (-)
[2024-08-17] MEDS: ZOSYN 50 IV ×3 (09:02→21:19)
--- NOTE | 2024-08-17 10:27 | HPS.HSE ---
Family Physician
-
Family Physician: Daquan Love
Chief Complaint
-
Acute abdominal pain
History of Present Illness
He had a cardiothoracic surgery end of last month. He had MVR , TVR, maze, left atrial appendage exclusion and was discharged on 07/30/2024.
He says while he was here he had bronchitis and while in cough.
Tuesday of this week he had a UTI symptoms so called his urologist who prescribed Levaquin. He needed self-catheterization but now able to pass urine without need of self-catheterization.
With the pain medication he was getting constipated. He was taking a daily oxycodone till Tuesday.
His left lower quadrant was touchy couple of days ago. He was tolerating diet. He had no nausea vomiting.
Acute abdominal pain woke him up from sleep at midnight. He tried an acid for 5 hours before he came in. It was very intense severe. Now better with the Dilaudid. It was generalized.
He had bowel movements 2, 1 of them yesterday was hard . The bowel movement before that was to 2 days before . He was feeling constipated with pain medication.
No fever chills.
He had remote history of diverticulosis bleed. He had a colonoscopy in 2009 which showed diverticulosis. He had an episode of diverticulitis before was treated with antibiotics.
Medical History
Past Medical History
Past Medical History: Reports Arrhythmia (History of paroxysmal atrial fibrillation), GERD, Hypothyroidism and Other (BPH)
Additional Past Medical History:
Diverticulosis, diverticulosis bleed in the past, diverticulitis in the past, thyroid cancer status post thyroid surgery
Past Surgical History: Reports Other (Mitral valve repair, tricuspid valve repair, maze, left atrial appendage exclusion; UroLift in 2022)
Social History
Tobacco: Non-smoker
Alcohol: None
Drug: None
Personal:
Living: With Family
Family History
Family History: Not pertinent
Allergies / Home Medications
Allergies reflects when Allergies were last updated in [employer].
Home Medications with original date entered in [employer]
Allergy/Medication List:
Allergies
Allergy/AdvReac Type Severity Reaction Status Date / Time
No Known Allergies Allergy Verified 08/17/24 06:16
Home Medications
levothyroxine 100 mcg tablet (Synthroid) 100 mcg PO DAILY Thyroid 01/30/10
aspirin 81 mg tablet,delayed release 81 mg PO DAILY Blood Clot Prevention/Tx 03/30/23
psyllium husk 0.4 gram capsule (Metamucil) 1.8 g PO BID Constipation 03/30/23
gabapentin 100 mg capsule 100 mg PO TID post-op nerve pain #30 caps 07/30/24
levofloxacin 500 mg tablet 500 mg PO DAILY 08/17/24
oxycodone 5 mg tablet 5 mg PO NOON 08/17/24
tamsulosin 0.4 mg capsule (Flomax) 0.4 mg PO DAILY 08/17/24
Review of Systems
-
A 12 point ROS was completed and negative except as noted: Yes
Physical Exam
Vital Signs
Vital Signs
Temp Pulse Resp BP Pulse Ox
98.0 F 85 18 115/71 99
08/17/24 06:17 08/17/24 10:07 08/17/24 08:00 08/17/24 08:00 08/17/24 06:30
Physical Exam
General: Comfortable
HEENT: Moist mucous membranes
Respiratory: Clear and Non Labored Respirations; No Accessory Resp Muscle Use
Cardiac: S1/S2, Regular Rhythm and Murmur
GI: Soft, Non Distended and Tender (in general with guarding but no rebound); No Normal Bowel Sounds
Musculoskeletal: No Edema
Neuro: AO x 3
Psych: Calm; No Confused
Laboratory Results
-
08/17/24 06:32
08/17/24 06:32
Laboratory Results
Total Bilirubin 1.3 mg/dl (0.2-1.3) 08/17/24 06:32
AST 27 U/L (17-59) 08/17/24 06:32
ALT 36 U/L (0-50) 08/17/24 06:32
Alkaline Phosphatase 103 U/L (38-126) 08/17/24 06:32
Troponin I 0.069 ng/ml H* 08/17/24 06:32
Data Reviewed
-
CT Scan: Report Reviewed by me (CT A/P)
Lab Data: Labs Reviewed by me
Impression/Plan
-
Acute severe complicated sigmoid diverticulitis with perforation-patient hemodynamically stable. He is nontoxic. Does not meet the criteria for sepsis yet. Patient with a prior history of diverticulosis with the bleeding as well as episode of
diverticulitis in the past.
Admit to hospital. Keep n.p.o. except for meds. Start on IV fluids. Consult colorectal surgery.
Started empirical Zosyn. Consult ID.
Abnormal troponin-patient has negative troponin elevation without chest pain. Positive CT surgery there was a concern of pericarditis and he was treated with colchicine. Continue to trend. EKG without any acute ST-T changes.
Recent UTI symptoms-on Levaquin. Check a urine analysis with culture. Hold Levaquin.
History of BPH-continue tamsulosin , follow for any retention.
Recent MVR/TVR/maze/left atrial appendage exclusion-patient without any chest pain or shortness of breath. No clinical signs of heart failure.
Right groin access site sinus tract-nonhealing right groin access site. Not infected externally. No discharge. CT of the abdomen pelvis today shows fluid collection next to the right femoral vein which could be seroma. Consult CT surgery
Full code
--- NOTE | 2024-08-17 10:49 | CON.ID ---
Consultation
-
Date/Time Consultation Requested: August 17, 2024 1030
Date/Time Consultation Performed: 08/17/2024 1050
Requesting Provider: Dr. Jc Sandhu
Performing Provider: Dr. Laura Vegas
Reason for Consultation: Severe diverticulitis with perforation
Chief Complaint / Past History
Chief Complaint
Abdominal pain
History of Present Illness
64-year-old male with history of diverticulitis x 1, hypothyroidism, pAfib, recent elective hospitalization from July 24 to July 30 and underwent mitral valve repair, tricuspid valve repair, MAZE presented to ER today due to acute onset of left
lower abdominal pain. He reports he had bronchitis towards the end of the last hospitalization, chest x-ray negative, no antibiotic prescribed. On Sunday 08/13 he complained of dysuria. On Tuesday, he saw his urologist who prescribed levofloxacin
x 10 days after submitting urine sample for UA/culture. Urine symptoms improved. However overnight experience left lower quadrant abdominal pain which did not resolved. No nausea or vomiting. No diarrhea. In the ER white count 21.7. CAT scan
of the abdomen pelvis severe sigmoid diverticulitis with small volume pneumoperitoneum without discrete abscess or drainable collection. Small right groin fluid collection measuring 5.4 cm most likely postop seroma. He is currently on Zosyn. He
denies any fevers or chills. No diarrhea. No urinary symptoms at this time.
Past History
Additional Past Medical History:
Hypothyroidism
Diverticulitis
Paroxysmal Afib s/p MAZE, LAAE 07/24/24
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
Tricuspid valve insufficiency s/p TV repair 07/24/24
Thyroid cancer s/ resection 1992
Uro lift
Right shoulder tear surgery
Allergy History:
No Known Allergies Allergy (Verified 08/17/24 06:16)
Medications Reviewed: Yes
Current Antibiotics:
Zosyn
Social History
Tobacco: Non-Smoker
Alcohol: None
Drug: None
Personal:
Living: With Family
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
Family History
Family History: Not Pertinent
Review of Systems
Review of Systems
General: Change in Appetite; Negative Fever or Chills
HEENT: Negative Sinus Problems, Headache or Pharyngitis
Cardiovascular: Negative Chest Pain or Dyspnea
Respiratory: Negative Dyspnea or Cough
Gasteroenterology: Negative Nausea, Vomiting or Diarrhea
Genital / Urological: Negative Dysuria or Flank Pain
Endocrine: Weakness
Neurological: Negative Dizziness
All systems: All other systems were reviewed and were negative
Vital Signs
Temp Pulse Resp BP Pulse Ox
98.0 F 92 18 109/73 95
08/17/24 06:17 08/17/24 10:30 08/17/24 10:30 08/17/24 10:40 08/17/24 10:30
Physical Exam
Physical Exam
Constitutional: No Acute Distress and Comfortable
Eyes: No Conjunctival Hemorrhage and Sclera Anicteric
Cardiovascular: Regular Rate and S1/S2
Pulmonary: Clear
Gastrointestinal: Soft, Tender (Left lower quadrant lower mid abdomen), Non Distended and Normal Bowel Sounds
Genito-Urinary: Negative CVA Tenderness
Extremities: Negative Edema
Wound: Other (Right groin: approx 1 cm oval wound without drainage, no surrounding erythema)
Neurological: AO x 3
Lab / Diagnostic Study Results
08/17/24 06:32
08/17/24 06:32
Abs Immat Gran (auto) 0.1 10^3/uL (0-0.05) H 08/17/24 06:32
Absolute Neuts (auto) 11.2 10^3/uL (1.4-6.5) H 08/17/24 06:32
Absolute Lymphs (auto) 9.4 10^3/uL (1.2-3.4) H 08/17/24 06:32
Absolute Monos (auto) 0.9 10^3/uL (0.1-0.6) H 08/17/24 06:32
Absolute Basos (auto) 0.1 10^3/uL (0-0.2) 08/17/24 06:32
Immature Gran % 0.4 % (0-0.5) 08/17/24 06:32
Neutrophils % 51.6 % (42.2-75.2) 08/17/24 06:32
Lymphocytes % 43.2 % (20.5-51.1) 08/17/24 06:32
Monocytes % 4.1 % (1.7-9.3) 08/17/24 06:32
Eosinophils % 0.5 % (0-6) 08/17/24 06:32
Basophils % 0.2 % (0-2) 08/17/24 06:32
Microbiology Results
08/17/24 CT a/p: Findings as above most consistent with severe sigmoid diverticulitis with associated small volume pneumoperitoneum. No discrete abscess formation or drainable collection. Small right groin fluid collection measuring up to 5.4 cm in
diameter as above, most likely postoperative seroma.
Assessment / Plan
# Acute sigmoid diverticulitis with microperforation.
# Leukocytosis
- Conservative management for now, per Colorectal
- Continue Zosyn (d1)
- Trend wbc.
- Follow clinically.
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
Hypothyroidism
Diverticulitis
Paroxysmal Afib s/p MAZE, LAAE 07/24/24
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
Tricuspid valve insufficiency s/p TV repair 07/24/24
Thyroid cancer s/ resection 1992
Uro lift
Right shoulder tear surgery
--- NOTE | 2024-08-17 11:52 | CON.CRS ---
Medical History
-
History of Present Illness:
Patient is a 64-year-old male with PMH of paroxysmal A-fib (states this has resolved, not on any AC), BPH, hypothyroidism (thyroid cancer s/p thyroid surgery), GERD, diverticulitis (first episode in 2018, no procedures needed, no episodes since),
valvular disease s/p MVR/TVR on 07/24/2024 at [place] (postoperatively, course was complicated by bronchitis for a few weeks and recent UTI, currently taking Levaquin) who presents with acute abdominal pain since last night. The pain is similar
to his previous episode of diverticulitis, but more severe and more diffuse. He denies any nausea or vomiting. He is passing gas and had a normal nonbloody BM yesterday. Denies any chest pain or shortness of breath. In the ED, his WBC was 21.7,
troponin was 0.069. A CT scan was done showing severe sigmoid diverticulitis associated with flecks of free air extending up to the right upper quadrant, groin seroma and stable kidney lesion. His last colonoscopy was 4 or so years ago with
[facility]. The report is not available to me, but states this was normal and recommended to repeat in 10 years.
Past Medical History
Past Medical History: Other (As above)
Past Surgical History: Other (Thyroid surgery, UroLift, MVR/TVR on 07/24/2024, right shoulder, right knee)
Social History
Tobacco: Non-Smoker
Alcohol: None
Drug: None
Personal:
Family History
Family History: Other (Denies any CRC)
Allergies / Home Medications
Allergy/AdvReac Type Severity Reaction Status Date / Time
No Known Allergies Allergy Verified 08/17/24 06:16
�Medication �Instructions �Recorded �Confirmed �Type
levothyroxine 100 mcg tablet 100 mcg PO DAILY Thyroid 01/30/10 08/17/24 History
(Synthroid)
aspirin 81 mg tablet,delayed 81 mg PO DAILY Blood Clot 03/30/23 08/17/24 History
release Prevention/Tx
psyllium husk 0.4 gram capsule 1.8 g PO BID Constipation 03/30/23 08/17/24 History
(Metamucil)
gabapentin 100 mg capsule 100 mg PO TID post-op nerve pain 07/30/24 08/17/24 Rx
#30 caps
levofloxacin 500 mg tablet 500 mg PO DAILY 08/17/24 08/17/24 History
oxycodone 5 mg tablet 5 mg PO NOON 08/17/24 08/17/24 History
tamsulosin 0.4 mg capsule (Flomax) 0.4 mg PO DAILY 08/17/24 08/17/24 History
Review of Systems
-
A 10 point review of systems was completed, and was negative except as per HPI.
Physical Exam
Vital Signs
Temp 98.0 F 08/17/24 06:17
Pulse 92 08/17/24 10:30
Resp Rate 18 08/17/24 10:30
Blood pressure 109/73 08/17/24 10:40
SaO2 95 08/17/24 10:30
08/16/24 08/17/24 08/18/24
06:59 06:59 06:59
Actual Weight 83.915 kg
Body Mass Index (BMI) 26.5
Lab Results / Allergies
08/17/24 06:32
08/17/24 06:32
WBC 21.7 10^3/uL (4.8-10.8) H 08/17/24 06:32
Hgb 14.1 g/dL (13.0-18.0) 08/17/24 06:32
Hct 42.6 % (39.0-52.0) 08/17/24 06:32
Plt Count 278 10^3/uL (130-400) 08/17/24 06:32
Abs Immat Gran (auto) 0.1 10^3/uL (0-0.05) H 08/17/24 06:32
Neutrophils % 51.6 % (42.2-75.2) 08/17/24 06:32
Allergy/AdvReac Type Severity Reaction Status Date / Time
No Known Allergies Allergy Verified 08/17/24 06:16
Physical Exam
General: Well Developed, Well Nourished and No Apparent Distress
HEENT: Normocephalic and Atraumatic
Respiratory: Non Labored Respirations
GI: Soft, Tender (Diffusely moderately tender to light palpation; no rebound or guarding) and Distended (Mildly distended, not tympanitic, slightly taut but not rigid)
Skin: Warm and Dry
Neuro: AO x 3
Assessment / Plan
-
64-year-old male with PMH of paroxysmal A-fib (states this has resolved, not on any AC), BPH, hypothyroidism (thyroid cancer s/p thyroid surgery), GERD, diverticulitis (first episode in 2018, no procedures needed, no episodes since), valvular
disease s/p MVR/TVR on 07/24/2024 at [place] (postoperatively, course was complicated by bronchitis for a few weeks and recent UTI, currently taking Levaquin) who presents with acute abdominal pain x1 day. His last colonoscopy was 4 or so years
ago with [facility]. The report is not available to me, but states this was normal and recommended to repeat in 10 years. In the ED, his WBC was 21.7, troponin was 0.069. A CT scan was done showing severe sigmoid diverticulitis associated with
flecks of free air extending up to the right upper quadrant, groin seroma and stable kidney lesion.
�Perforated diverticulitis with flecks of free air, no abscess
� No evidence of peritonitis or hemodynamic instability; discussed the pathophysiology of perforated diverticulitis and the treatment options, including nonoperative management versus surgery; surgery at this time would likely include a midline
incision; the decision for stoma would be made intraoperatively, but there is significantly increased risk of stoma creation in the setting; explained the expected course for nonoperative measures and the risks of failure, requiring urgent surgery
and higher risk of ostomy in that situation; after lengthy discussion with patient and patient's , patient elected to proceed with nonoperative measures and close monitoring
�Keep n.p.o., okay for ice chips and p.o. meds
� Continue IV Zosyn
� Pain control with Tylenol, Toradol, Dilaudid as needed
� Okay for DVT PPx with Lovenox
� Okay for OOB/encourage IS
� Appreciate hospitalist
[2024-08-17] MEDS: DILAUDID 0.5 MG IV ×3 (13:51→22:31)
[2024-08-17] MEDS: ASPIR LOW (ENTERIC COATED) 81 MG PO (15:18)
[2024-08-17] MEDS: NEURONTIN 100 MG PO ×2 (15:18→21:20)
[2024-08-17] MEDS: TYLENOL 650 MG PO (15:18)
[2024-08-17] MEDS: SYNTHROID PO (15:21)
[2024-08-17] MEDS: FLOMAX PO (15:23)
[2024-08-17 15:24] LABS: Troponin I 0.052 ng/ml
[2024-08-17] MEDS: ROXICODONE 5 MG PO ×2 (15:34→21:19)
--- NOTE | 2024-08-17 17:26 | WOUNDNOTE ---
WO RN NOTE: Reviewed chart and met with patient. Right groin wound is a cannulation site from cardiothoracic surgery in June. No drainage noted, periwound is soft and non-tender. Wound is shallow (see worklist for details). Local wound care
provided as documented in worklist. Will defer to cardiothoracic surgery for recommendations. Will sign off.
--- NOTE | 2024-08-17 17:32 | WOUNDNOTE ---
RIGHT GROIN WOUND
--- NOTE | 2024-08-17 17:42 | CONSULT.CT ---
Consultation
-
Date/Time Consultation Requested: 08/17
Date/Time Consultation Performed: 08/17
Requesting Provider: Jc Sandhu
Performing Provider: Emily HANEY
Reason for Consultation: evaluate right groin wound
Patient History
History of Present Illness
Lorenzo Corley is a 64-year-old male known to cardiac surgery service from recent hospitalization 07/24 - 07/30/24 due to admission for elective radical mitral valve repair (imbrication of P2 onto P1 on cleft closure/free margin remodeling at P2 and P3
with placement of 2 [place]chariah cords and a 34 mm band annuloplasty), tricuspid valve repair [30 mm band annuloplasty], modified left atrial maze, open surgical using cryo, left atrial appendage exclusion [35 mm clip] by Dr. Jordy Corley on .
Tuesday of this week, patient experienced UTI symptoms and was prescribed Levaquin by his urologist. He required self-catheterization but now able to pass urine without need of self-catheterization. Experienced constipation due to Oxycodone which he
stopped 08/15. His left lower quadrant was touchy couple of days ago. He was tolerating diet. He had no nausea/vomiting. Acute abdominal pain woke him up from sleep at midnight 08/18. Patient admitted with severe sigmoid diverticulitis with
associated small volume pneumoperitoneum. Patient evaluated by colorectal team and made n.p.o. and treated with IV Zosyn. CT of abdomen/pelvis with incidental finding of small right groin fluid collection measuring 5.4 cm. Called to evaluate right
groin wound which patient states 'just hasn't healed.' Denies redness or drainage.
Past Medical History
Past Medical History: Atrial Fib (PAF not on anticoagulation), Cancer (Thyroid cancer status post surgery 1992), GERD, Hypothyroidism and Other (BPH; diverticulitis 2017; mitral and tricuspid regurgitation)
Past Surgical History
Past Surgical History: Other (Urolift 2022; mitral and tricuspid repair with maze and left atrial appendage clip 07/24/2024)
Family History
Mother: N/A
Father: N/A
Social History
Alcohol: None
Drug: None
Tobacco: Non-Smoker
Personal:
Living: With Spouse
Employment: Employed
Allergies
Allergy/AdvReac Type Severity Reaction Status Date / Time
No Known Allergies Allergy Verified 08/17/24 06:16
Home Medications
�Medication �Instructions �Recorded �Confirmed �Type
levothyroxine 100 mcg tablet 100 mcg PO DAILY Thyroid 01/30/10 08/17/24 History
(Synthroid)
aspirin 81 mg tablet,delayed 81 mg PO DAILY Blood Clot 03/30/23 08/17/24 History
release Prevention/Tx
psyllium husk 0.4 gram capsule 1.8 g PO BID Constipation 03/30/23 08/17/24 History
(Metamucil)
gabapentin 100 mg capsule 100 mg PO TID post-op nerve pain 07/30/24 08/17/24 Rx
#30 caps
levofloxacin 500 mg tablet 500 mg PO DAILY 08/17/24 08/17/24 History
oxycodone 5 mg tablet 5 mg PO NOON 08/17/24 08/17/24 History
tamsulosin 0.4 mg capsule (Flomax) 0.4 mg PO DAILY 08/17/24 08/17/24 History
Review of Systems
-
History Source: Patient
General: Reports No Symptoms
HEENT: Reports No Symptoms
Respiratory: Reports No Symptoms
Cardiac: Reports No Symptoms
Abdomen/GI: Reports Abdominal Pain
: Reports No Symptoms
Musculoskeletal: Reports No Symptoms
Skin: Reports No Symptoms
Neurological: Reports No Symptoms
Vascular: Reports No Symptoms
Physical Exam
Vital Signs
Temp 101.8 F H 08/17/24 15:20
Temp route: Oral 08/17/24 15:20
Pulse 88 08/17/24 15:20
Rhythm: Normal sinus rhythm 08/17/24 15:58
Resp Rate 20 08/17/24 15:20
Blood pressure 108/77 08/17/24 15:20
Blood pressure extremity used: Left upper arm 08/17/24 15:20
Position: Lying 08/17/24 15:20
MAP (cuff-Nik Monitor) 85 08/17/24 13:20
SaO2 95 08/17/24 15:20
Oxygen Mode of Delivery Room air 08/17/24 15:20
Acceptable pain level during hospitalization? 0 08/17/24 06:24
Can the patient verbally communicate their pain? Yes 08/17/24 16:34
Pain scale ratin 08/17/24 16:34
Actual Weight 83.915 kg 08/17/24 06:29
Body Mass Index (BMI) 26.5 08/17/24 06:29
Labs
08/17/24 06:32
08/17/24 06:32
Troponin I 0.052 ng/ml H* 08/17/24 14:37
Exam
General: Well Developed and Well Nourished
HEENT: Normocephalic
Neck: Trachea Midline
Respiratory: Clear
Cardiac: S1/S2 and Regular Rhythm
GI: Soft, Tender and Distended
Rectal: Deferred by Provider
Skin: Warm, Dry and Other (right groin open wound approx 0.5cm wide by 0.3cm depth, no drainage, no erythema. Right thoracotomy intact w/o erythema)
Neuro: AO x 3 and Nonfocal/Grossly Intact
Lymph: No Lymphadenopathy
Psych: Calm
Assessment / Plan
-
64-year-old male s/p mitral and tricuspid repair, MAZE, left atrial appendage clip on 07/24/[address] Jordy Corley, is readmitted with diverticulitis and right groin open wound at prior cannulation site
- case d/w Dr Corley
- wound care consult with local wound care (saline wet to dry dressings)
- rest of care per primary team
Data Reviewed
-
CT Scan: Report Reviewed by me and Discussed with Physician
Labs: Labs Reviewed by me and Discussed with Physician
Old Records: Reviewed
[2024-08-17 21:59] LABS: Troponin I 0.048 ng/ml
[2024-08-17 22:56] LABS: Urine Albumin 1+ (Neg - Trace); Urine Bilirubin Negative (Negative); Urine Character Clear (Clear); Urine Color Yellow; Urine Glucose Negative (Negative); Urine Ketone Negative (Negative); Urine Leukocyte Negative (Negative); Urine Nitrite Negative (Negative); Urine Occult Blood 1+ (Negative); Urine Urobilinogen Negative (Neg - 1+)
[2024-08-17 23:10] LABS: Urine Bacteria Few (Negative); Urine Red Blood Cell 0-2 /HPF (0-2); Urine Squamous Cell 0-2 /LPF (Few); Urine White Cell None Seen /HPF (0-5)
[2024-08-18] MEDS: NSS 1000 IV ×2 (01:55→15:12)
[2024-08-18] MEDS: DILAUDID 0.5 MG IV ×4 (02:49→23:32)
[2024-08-18 03:11] VITALS: BP 116/77
[2024-08-18 03:20] LABS: Hematocrit 35.9 % (39.0-52.0); Mean Corp Hgb Conc. 33.4 g/dL (33.0-37.0); Mean Corpuscular Hgb 27.7 pg (27.0-31.0); Mean Corpuscular Volume 82.9 fL (80.0-94.0); Mean Platelet Volume 10.5 fL (7.4-10.4); Platelet Count 178 10^3/uL (130-400); Red Blood Cell Count 4.33 10^6/uL (4.70-6.10); Red Cell Dist. Width 13.4 % (11.5-14.5)
[2024-08-18] MEDS: ZOSYN 50 IV ×4 (03:51→22:39)
[2024-08-18 04:02] LABS: Blood Urea Nitrogen 21 mg/dl (9-20); Calcium 8.8 mg/dl (8.4-10.2); Carbon Dioxide 22 mmol/L (22-30); Chloride 107 mmol/L (98-107); Estimated Creatinine Clearance 86 ml/min; Glucose 112 mg/dl (70-99); Potassium 4.2 mmol/L (3.5-5.1); Sodium 139 mmol/L (135-145); eGFR > 60.00
[2024-08-18 04:19] LABS: Troponin I 0.045 ng/ml
--- NOTE | 2024-08-18 05:27 | PTCARENOTE ---
Patient self straight cath x1 for large volume urine this shift.
[2024-08-18] MEDS: SYNTHROID 100 MCG PO (07:06)
[2024-08-18 07:31] VITALS: BP 120/68
[2024-08-18] MEDS: NEURONTIN 100 MG PO ×3 (08:45→22:39)
[2024-08-18] MEDS: FLOMAX PO (08:45)
[2024-08-18] MEDS: ASPIR LOW (ENTERIC COATED) 81 MG PO (08:45)
--- NOTE | 2024-08-18 10:29 | CM ---
regulatory process manager reviewed patient's chart and met with patient and patient lives with his spouse in a 2 story home, with one step to enter, patient is independent with adl's and ambulation, no dme, home when stable, no needs.
PCP: Daquan Love
Pharmacy: [facility] in [place]
Plan; Home with spouse when stable, no needs.
[2024-08-18 11:04] VITALS: BP 109/73
[2024-08-18] MEDS: NSS IV ×2 (11:37→22:30)
--- NOTE | 2024-08-18 11:50 | W.PN.CRS1 ---
Today's Communication / Plan
-
Clears for comfort
Continue IV abx
Assessment/Plan
-
64 yo male presenting with perforated diverticulitis (flecks of free air), no abscess
VSS, fever last night to 101.8
WBC count trending down slowly
Pain somewhat improved today
--Continue IV abx
--Analgesics/antiemetics prn
--OK for VTE ppx from surgical standpoint
--Ok for clear liquids for comfort
No emergent surgical intervention today but he may still require surgery this admission, will follow labs/exam/fever trend closely
Subjective Data
Subjective Data
Date of Service: August 18, 2024
Patient seen and examined at bedside with Dr. Turcios. Rosy n/v. Pain improved today but still present, notes it is more central now then previous. Passing flatus/stools. Does have an appetite.
Objective Data
-
Vital Signs
Temp Pulse Resp BP Pulse Ox
98.5 F 88 14 109/73 98
08/18/24 11:04 08/18/24 11:04 08/18/24 11:04 08/18/24 11:04 08/18/24 11:04
Intake & Output
08/17/24 08/18/24 08/19/24
06:59 06:59 06:59
Intake Total 250 / 250 1200 / 1200
Balance 250 / 250 1200 / 1200
Intake:
Oral fluids 250 / 250
IV fluids (Total) 1100 / 1100
IV piggybacks 100 / 100
Other:
Number of approximated LARGE 2
amounts of urine
Lab Results
08/18/24 03:03
08/18/24 03:03
Physical Exam
-
General: No Acute Distress
Abdomen: Soft, Non Distended and Tender (left abdomen )
Skin: Warm and Dry
[2024-08-18] MEDS: ROXICODONE 5 MG PO ×2 (11:56→19:34)
[2024-08-18 12:15] VITALS: BMI 26.5
--- NOTE | 2024-08-18 12:38 | W.PN.ID1 ---
Date of Service
Date of Service: August 18, 2024
Today's Communication
Continue Zosyn. Trend white count.
Assessment / Plan
# Acute sigmoid diverticulitis with microperforation.
# Leukocytosis
- Conservative management for now, per Colorectal
- Continue Zosyn (d#2)
- Trend wbc.
- Follow clinically.
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
Hypothyroidism
Diverticulitis
Paroxysmal Afib s/p MAZE, LAAE 07/24/24
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
Tricuspid valve insufficiency s/p TV repair 07/24/24
Thyroid cancer s/ resection 1992
Uro lift
Right shoulder tear surgery
Chief Complaint
-: Other (Diverticulitis)
Subjective / Review of Systems
Patient seen and examined. Reports occasional abdominal discomfort, but overall pain is controlled. Denies fevers or chills.
Vital Signs / Physical Exam
Vital Signs
Vital Signs
Temp Pulse Resp BP Pulse Ox
98.5 F 88 14 109/73 98
08/18/24 11:04 08/18/24 11:04 08/18/24 11:04 08/18/24 11:04 08/18/24 11:04
Physical Exam
Constitutional: No Acute Distress, Comfortable and Non-toxic
Eyes: Sclera Anicteric
Pulmonary: Non Labored
Gastrointestinal: Non Distended
Extremities: Negative Erythema
Skin: Negative Rash or Jaundice
Neurological: Awake and Alert
Psychological: Calm
Objective Data
Lab Data
Lab Results
08/18/24 03:03
08/18/24 03:03
Estimated Creat Clear 86 ml/min 08/18/24 03:03
Total Bilirubin 1.3 mg/dl (0.2-1.3) 04/18/25 06:32
AST 27 U/L (17-59) 08/17/24 06:32
ALT 36 U/L (0-50) 08/17/24 06:32
Alkaline Phosphatase 103 U/L (38-126) 08/17/24 06:32
Most recent labs reviewed.
08/17/24 CT a/p: Findings as above most consistent with severe sigmoid diverticulitis with associated small volume pneumoperitoneum. No discrete abscess formation or drainable collection. Small right groin fluid collection measuring up to 5.4 cm in
diameter as above, most likely postoperative seroma.
[2024-08-18 15:18] VITALS: BP 118/78
--- NOTE | 2024-08-18 15:43 | W.PN.HOSP.TC ---
Today's Communication/Plan
-
Diet - clears per sx
cw IV fluids till intake is adequate
CW IV abx
Assessment / Plan
Assessment / Plan
Acute severe complicated sigmoid diverticulitis with perforation-patient hemodynamically stable. He remains nontoxic. Did not meet the criteria for sepsis on adx. Patient with a prior history of diverticulosis with the bleeding as well as
episode of diverticulitis in the past.
Appt colorectal surgery input - for medical management .
cw empirical Zosyn.
ID following
Abnormal troponin-patient has negative troponin elevation without chest pain. Positive CT surgery there was a concern of pericarditis and he was treated with colchicine. Continue to trend. EKG without any acute ST-T changes. No chest pain , trops
indeterminate range , and they are flat without a peak.Follow for any chest pains.
Recent UTI symptoms-on Levaquin. Hold Levaquin.
History of BPH-continue tamsulosin , follow for any retention.Straight cath prn as he does at home.
Recent MVR/TVR/maze/left atrial appendage exclusion-patient without any chest pain or shortness of breath. No clinical signs of heart failure.
Right groin access site sinus tract-nonhealing right groin access site. Not infected externally. No discharge. CT of the abdomen pelvis today shows fluid collection next to the right femoral vein which could be seroma. CT surgery input noted
-cw wound care for now
Full code
Anticipated Discharge: > 48 hours
Subjective/Interval History
-
Date of Service: August 18, 2024
Abdomen less painful today
No N/V
No further fevers
Objective Data
-
Labs:
Laboratory Results
08/18/24
03:03
Sodium 139
Potassium 4.2
Chloride 107
Carbon Dioxide 22
BUN 21 H
Creatinine 0.9
Glucose 112 H
Calcium 8.8
Vital Signs:
Vital Signs
Temp Pulse Resp BP Pulse Ox
99 F 93 14 118/78 98
08/18/24 15:18 08/18/24 15:18 08/18/24 15:18 08/18/24 15:18 08/18/24 15:18
I&O
08/17/24 08/18/24 08/19/24
06:59 06:59 06:59
Intake Total 250 / 250 1200 / 1200
Output Total 650 / 650
Balance 250 / 250 550 / 550
Review of Systems
-
Respiratory: Denies Trouble Breathing
Cardiac: Denies Chest Pain or Palpitations
Neuro: Denies Dizzy
Physical Exam
-
General: No Apparent Distress
HEENT: Moist Mucous Membranes
Respiratory: Clear to Auscultation
Cardiac: Regular Rhythm, S1/S2 and Tachycardic
GI: Soft, Nondistended, Normal Bowel Sounds and Tender (in general but no guarding or rebound today)
Musculoskeletal: No Edema
Neuro: AO x 3
Psych: Calm
Data Reviewed
-
Labs: Labs Reviewed by me
[2024-08-18] MEDS: TYLENOL 650 MG PO (17:04)
[2024-08-18 19:00] VITALS: BP 112/75
[2024-08-18 23:00] VITALS: BP 131/76
[2024-08-19 03:00] VITALS: BP 121/77
[2024-08-19] MEDS: ZOSYN 50 IV ×4 (04:59→21:39)
[2024-08-19] MEDS: SYNTHROID 100 MCG PO (05:08)
[2024-08-19] MEDS: ROXICODONE 5 MG PO (05:12)
[2024-08-19 06:52] LABS: Hematocrit 36.8 % (39.0-52.0); Hemoglobin 12.2 g/dL (13.0-18.0); Mean Corp Hgb Conc. 33.2 g/dL (33.0-37.0); Mean Corpuscular Hgb 27.7 pg (27.0-31.0); Mean Corpuscular Volume 83.4 fL (80.0-94.0); Platelet Count 158 10^3/uL (130-400); Red Blood Cell Count 4.41 10^6/uL (4.70-6.10); Red Cell Dist. Width 13.4 % (11.5-14.5); White Blood Cell Count 15.3 10^3/uL (4.8-10.8)
[2024-08-19 07:17] LABS: Blood Urea Nitrogen 20 mg/dl (9-20); Calcium 8.4 mg/dl (8.4-10.2); Carbon Dioxide 25 mmol/L (22-30); Chloride 104 mmol/L (98-107); Estimated Creatinine Clearance 77 ml/min; Glucose 114 mg/dl (70-99); Potassium 3.8 mmol/L (3.5-5.1); Sodium 138 mmol/L (135-145); eGFR > 60.00
[2024-08-19 07:30] VITALS: BP 129/80
[2024-08-19] MEDS: NEURONTIN 100 MG PO ×3 (08:01→21:39)
[2024-08-19] MEDS: ASPIR LOW (ENTERIC COATED) 81 MG PO (08:01)
[2024-08-19] MEDS: FLOMAX PO (08:03)
[2024-08-19] MEDS: DILAUDID 0.5 MG IV ×4 (08:06→22:44)
--- NOTE | 2024-08-19 10:53 | W.PN.CRS1 ---
Today's Communication / Plan
-
full liquids
IV abx
Assessment/Plan
-
64 yo male presenting with perforated diverticulitis (flecks of free air), no abscess
Afebrile, vss
WBC count trending down
Pain improving
--Continue IV abx
--Analgesics/antiemetics prn
--OK for VTE ppx from surgical standpoint
--Ok for full liquids
No emergent surgical intervention today but he may still require surgery this admission, will follow labs/exam/fever trend closely
Subjective Data
Subjective Data
Date of Service: August 19, 2024
Patient seen and examined at bedside with Dr. Turcios. Denies n/v. Tolerating clears. Pain continues to improve but still present. No appetite yet.
Objective Data
-
Vital Signs
Temp Pulse Resp BP Pulse Ox
98.5 F 81 16 129/80 97
08/19/24 07:30 08/19/24 07:30 08/19/24 07:30 08/19/24 07:30 08/19/24 07:30
Intake & Output
08/18/24 08/19/24 08/20/24
06:59 06:59 06:59
Intake Total 250 / 250 2690 / 2690
Output Total 650 / 650
Balance 250 / 250 2039 / 2039
Intake:
Oral fluids 250 / 250 600 / 600
IV fluids (Total) 1939
IV piggybacks 150 / 150
Output:
Urine, Voided 650 / 650
Other:
Number of approximated LARGE 2 1
amounts of urine
Lab Results
08/19/24 06:39
08/19/24 06:39
Physical Exam
-
General: No Acute Distress
Abdomen: Soft, Non Distended and Tender (left abdomen )
Skin: Warm and Dry
[2024-08-19 11:30] VITALS: BP 124/82
--- NOTE | 2024-08-19 13:10 | W.PN.ID1 ---
Date of Service
Date of Service: August 19, 2024
Today's Communication
Continue antibiotics.
Assessment / Plan
# Acute sigmoid diverticulitis with microperforation.
# Leukocytosis
- Conservative management for now, per Colorectal
- Continue Zosyn (d#3)
- Trend wbc.
- Follow clinically.
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
Hypothyroidism
Diverticulitis
Paroxysmal Afib s/p MAZE, LAAE 07/24/24
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
Tricuspid valve insufficiency s/p TV repair 07/24/24
Thyroid cancer s/ resection 1992
Uro lift
Right shoulder tear surgery
Chief Complaint
-: Other (Diverticulitis)
Subjective / Review of Systems
Review of Systems: No Fever and No Chills
Vital Signs / Physical Exam
Vital Signs
Vital Signs
Temp Pulse Resp BP Pulse Ox
98.5 F 81 16 129/80 97
08/19/24 07:30 08/19/24 07:30 08/19/24 07:30 08/19/24 07:30 08/19/24 07:30
Physical Exam
Constitutional: No Acute Distress, Comfortable and Non-toxic
Eyes: Sclera Anicteric
Pulmonary: Non Labored
Gastrointestinal: Non Distended
Skin: Negative Rash or Jaundice
Neurological: Awake, Alert and Oriented
Psychological: Calm
Objective Data
Lab Data
Lab Results
08/19/24 06:39
08/19/24 06:39
Estimated Creat Clear 77 ml/min 08/19/24 06:39
Total Bilirubin 1.3 mg/dl (0.2-1.3) 08/17/24 06:32
AST 27 U/L (17-59) 08/17/24 06:32
ALT 36 U/L (0-50) 08/17/24 06:32
Alkaline Phosphatase 103 U/L (38-126) 08/17/24 06:32
Most recent labs reviewed.
08/17/24 CT a/p: Findings as above most consistent with severe sigmoid diverticulitis with associated small volume pneumoperitoneum. No discrete abscess formation or drainable collection. Small right groin fluid collection measuring up to 5.4 cm in
diameter as above, most likely postoperative seroma.
--- NOTE | 2024-08-19 14:11 | W.PN.HOSP.TC ---
Today's Communication/Plan
-
Advance diet per surgery
CW IV Zosyn
Assessment / Plan
Assessment / Plan
Acute severe complicated sigmoid diverticulitis with perforation-patient hemodynamically stable. He remains nontoxic. Did not meet the criteria for sepsis on adx. Patient with a prior history of diverticulosis with the bleeding as well as
episode of diverticulitis in the past.
Appt colorectal surgery input - for medical management .
cw empirical Zosyn. Improving WBC and no further fevers.
ID following
Abnormal troponin-patient has negative troponin elevation without chest pain. Positive CT surgery there was a concern of pericarditis and he was treated with colchicine. Continue to trend. EKG without any acute ST-T changes. No chest pain , trops
indeterminate range , and they are flat without a peak.Follow for any chest pains.
Recent UTI symptoms-on Levaquin. Hold Levaquin.
History of BPH-continue tamsulosin , follow for any retention.Straight cath prn as he does at home.
Recent MVR/TVR/maze/left atrial appendage exclusion-patient without any chest pain or shortness of breath. No clinical signs of heart failure.
Right groin access site sinus tract-nonhealing right groin access site. Not infected externally. No discharge. CT of the abdomen pelvis today shows fluid collection next to the right femoral vein which could be seroma. CT surgery input noted
-cw wound care for now
Full code
Anticipated Discharge: > 48 hours
Subjective/Interval History
-
Date of Service: August 19, 2024
Feels improved with abdo pain but requires pain meds still.
No N/V
Passing gas
No fevers further
Tolerating clear liquids
Objective Data
-
Labs:
Laboratory Results
08/19/24
06:39
WBC 15.3 H
Hgb 12.2 L
Hct 36.8 L
Plt Count 158
Sodium 138
Potassium 3.8
Chloride 104
Carbon Dioxide 25
BUN 20
Creatinine 1.0
Glucose 114 H
Calcium 8.4
Vital Signs:
Vital Signs
Temp Pulse Resp BP Pulse Ox
98.0 F 77 16 124/82 96
08/19/24 11:30 08/19/24 11:30 08/19/24 11:30 08/19/24 11:30 08/19/24 11:30
I&O
08/18/24 08/19/24 08/20/24
06:59 06:59 06:59
Intake Total 250 / 250 2690 / 2690
Output Total 650 / 650
Balance 250 / 250 2039 / 2039
Review of Systems
-
Constitutional: Denies Fever
EENT: Denies Sore Throat
Respiratory: Denies Trouble Breathing
Cardiac: Denies Chest Pain
Neuro: Denies Dizzy
Physical Exam
-
General: No Apparent Distress
HEENT: Moist Mucous Membranes
Respiratory: Clear to Auscultation
Cardiac: Regular Rhythm and S1/S2
GI: Soft, Nondistended, Normal Bowel Sounds and Tender (in RUQ more so than other quadrants but no rebound or guarding)
Neuro: AO x 3
Data Reviewed
-
Labs: Labs Reviewed by me
[2024-08-19] MEDS: HEPARIN 5000 UNITS SC ×2 (15:37→23:29)
[2024-08-19 16:00] VITALS: BP 115/78
[2024-08-19 19:20] VITALS: BP 128/82
[2024-08-19 23:55] VITALS: BP 118/79
[2024-08-20] MEDS: ZOSYN 50 IV ×4 (04:55→22:02)
[2024-08-20] MEDS: ROXICODONE 5 MG PO ×3 (04:55→23:01)
[2024-08-20] MEDS: SYNTHROID 100 MCG PO (05:01)
[2024-08-20 05:17] VITALS: BP 130/79
[2024-08-20 07:30] VITALS: BP 123/80
[2024-08-20] MEDS: FLOMAX 0.4 MG PO (08:20)
[2024-08-20] MEDS: NEURONTIN 100 MG PO ×3 (08:20→22:03)
[2024-08-20] MEDS: HEPARIN 5000 UNITS SC ×3 (08:20→23:01)
[2024-08-20] MEDS: ASPIR LOW (ENTERIC COATED) 81 MG PO (08:20)
[2024-08-20 08:22] LABS: Hematocrit 35.1 % (39.0-52.0); Hemoglobin 11.8 g/dL (13.0-18.0); Mean Corp Hgb Conc. 33.6 g/dL (33.0-37.0); Mean Corpuscular Hgb 27.8 pg (27.0-31.0); Mean Corpuscular Volume 82.6 fL (80.0-94.0); Mean Platelet Volume 10.5 fL (7.4-10.4); Platelet Count 157 10^3/uL (130-400); Red Blood Cell Count 4.25 10^6/uL (4.70-6.10); Red Cell Dist. Width 13.4 % (11.5-14.5); White Blood Cell Count 12.9 10^3/uL (4.8-10.8)
[2024-08-20] MEDS: DILAUDID 0.5 MG IV (08:33)
[2024-08-20 08:42] LABS: Blood Urea Nitrogen 18 mg/dl (9-20); Calcium 8.4 mg/dl (8.4-10.2); Carbon Dioxide 27 mmol/L (22-30); Chloride 104 mmol/L (98-107); Estimated Creatinine Clearance 86 ml/min; Glucose 109 mg/dl (70-99); Potassium 3.8 mmol/L (3.5-5.1); Sodium 139 mmol/L (135-145); eGFR > 60.00
--- NOTE | 2024-08-20 09:19 | W.PN.CRS1 ---
Today's Communication / Plan
-
As below
Assessment/Plan
-
64-year-old male with PMH of paroxysmal A-fib (states this has resolved, not on any AC), BPH, hypothyroidism (thyroid cancer s/p thyroid surgery), GERD, diverticulitis (first episode in 2018, no procedures needed, no episodes since), valvular
disease s/p MVR/TVR on 07/24/2024 at [facility] (postoperatively, course was complicated by bronchitis for a few weeks and recent UTI, currently taking Levaquin) who presents with acute abdominal pain x1 day. His last colonoscopy was 4 or so years
ago with Shikha ROWLAND. The report is not available to me, but states this was normal and recommended to repeat in 10 years. In the ED, his WBC was 21.7, troponin was 0.069. A CT scan was done showing severe sigmoid diverticulitis associated with
flecks of free air extending up to the right upper quadrant, groin seroma and stable kidney lesion.
�Perforated diverticulitis with flecks of free air, no abscess
�No acute surgical intervention currently; continue nonoperative measures and close monitoring
�Keep at full liquids due to persistent lower abdominal pain
� Continue IV Zosyn
� Pain control with Tylenol, oxy, Dilaudid as needed
� Continue SQH for DVT PPx
� Okay for OOB/encourage IS
� Appreciate hospitalist
Subjective Data
Subjective Data
Date of Service: August 20, 2024
No overnight events.
Pain persistent, somewhat improved, controlled with pain medicine.
Denies nausea/vomiting. Tolerating fulls diet.
+ Minimal flatus -BMs +voiding
Pt is OOB.
Objective Data
-
Vital Signs
Temp Pulse Resp BP Pulse Ox
97.9 F 77 16 123/80 97
08/20/24 07:30 08/20/24 07:30 08/20/24 07:30 08/20/24 07:30 08/20/24 07:30
Intake & Output
08/19/24 08/20/24 08/21/24
06:59 06:59 06:59
Intake Total 2690 / 2690 1810 / 1810
Output Total 650 / 650 500 / 500
Balance 2039 / 2039 1310 / 1310
Intake:
Oral fluids 600 / 600 1760 / 1760
IV fluids (Total) 1939
IV piggybacks 150 / 150 50 / 50
Output:
Urine, Voided 650 / 650 500 / 500
Other:
Number of approximated MODERATE 1
amounts of urine
Number of approximated LARGE 1
amounts of urine
Lab Results
08/20/24 07:49
08/20/24 07:49
Physical Exam
-
General: No Acute Distress and AOx3
HEENT: Grossly Normal
Abdomen: Soft, Distended (Mildly distended, non-tympanitic), Tender (Mildly to moderately tender in the bilateral lower quadrants, minimally tender in the RUQ), No Guarding and No Rebound
Skin: Warm and Dry
Wound: No Signs of Infection and No Skin Erythema
--- NOTE | 2024-08-20 10:46 | W.PN.ID1 ---
Date of Service
Date of Service: August 20, 2024
Today's Communication
Continue Zosyn
Assessment / Plan
# Acute sigmoid diverticulitis with microperforation.
# Leukocytosis - trending down
- Conservative management for now, per Colorectal
- Continue Zosyn (d4)
- Trend wbc.
- Follow clinically.
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
Hypothyroidism
Diverticulitis
Paroxysmal Afib s/p MAZE, LAAE 07/24/24
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
Tricuspid valve insufficiency s/p TV repair 07/24/24
Thyroid cancer s/ resection 1992
Uro lift
Right shoulder tear surgery
Chief Complaint
-: Other (Diverticulitis)
Subjective / Review of Systems
Abd pain persists but improving.
Vital Signs / Physical Exam
Vital Signs
Vital Signs
Temp Pulse Resp BP Pulse Ox
97.9 F 77 16 123/80 97
08/20/24 07:30 08/20/24 07:30 08/20/24 07:30 08/20/24 07:30 08/20/24 07:30
Physical Exam
Constitutional: No Acute Distress
Pulmonary: Clear
Gastrointestinal: Soft, Tender (LLQ ), Non Distended and Normal Bowel Sounds
Extremities: Negative Edema
Neurological: AO x 3
Objective Data
Lab Data
Lab Results
08/20/24 07:49
08/20/24 07:49
Estimated Creat Clear 86 ml/min 08/20/24 07:49
Total Bilirubin 1.3 mg/dl (0.2-1.3) 08/17/24 06:32
AST 27 U/L (17-59) 08/17/24 06:32
ALT 36 U/L (0-50) 08/17/24 06:32
Alkaline Phosphatase 103 U/L (38-126) 08/17/24 06:32
C-Reactive Protein 169.40 mg/L (0.0-10.00) H 08/20/24 07:49
Most recent labs reviewed.
Micro Results:
08/19/24 14:15 Respiratory Culture - Preliminary
Sputum Usual Respiratory Alexandra
Gram Stain - Preliminary
08/17/24 CT a/p: Findings as above most consistent with severe sigmoid diverticulitis with associated small volume pneumoperitoneum. No discrete abscess formation or drainable collection. Small right groin fluid collection measuring up to 5.4 cm in
diameter as above, most likely postoperative seroma.
[2024-08-20 11:40] VITALS: BP 121/82
[2024-08-20 16:00] VITALS: BP 123/77
--- NOTE | 2024-08-20 16:32 | CM ---
Pt independent prior to admission.
Pt on full liquids.
Maintained on IV antibiotics.
PLAN Home no anticipated needs
[2024-08-20] MEDS: DILAUDID 0.25 MG IV (17:54)
--- NOTE | 2024-08-20 17:58 | W.PN.HOSP.TC ---
Addendum entered and electronically signed by Hernan Prescott MD 08/21/24 14:34:
agree with resident below
Original Note:
Today's Communication/Plan
-
Continue IV Zosyn
Continue nonoperative measures
Continue with full liquids
Decrease Dilaudid to 0.25 every 4h
Assessment / Plan
Assessment / Plan
# Acute diverticulitis with microperforation
- Hemodynamically stable
- Abdominal pain improving, not febrile
- Colorectal surgery following. Continue nonoperative management and close monitoring
- ID following, continue IV Zosyn
# Leukocytosis
- Likely secondary to diverticulitis
- Downtrending
- Continue to trend
# Constipation
- No bowel movement since
- Passed flatus
- Continue full liquids, per colorectal surgery
- Decrease IV Dilaudid to 0.25 every 4h
- Advised Oxy versus Dilaudid for pain if needed
# Elevated troponin
- Downtrending
- EKG without any acute ST-T changes
- Not symptomatic
- Follow for any chest pain
# Recent UTI
- Held Levaquin
# History of BPH s/p UroLift
- Continue tamsulosin
- Straight cath prn as needed
# Recent MVR/TVR/maze/left atrial appendage exclusion
- Not symptomatic
- Right groin open wound at prior cannulation site. Cardiothoracic surgery consulted. Recommended wound care
Full code
DVT prophylaxis heparin subcu
Anticipated Discharge: > 48 hours
Subjective/Interval History
-
Date of Service: August 20, 2024
Objective Data
-
Labs:
Laboratory Results
08/20/24
07:49
WBC 12.9 H
Hgb 11.8 L
Hct 35.1 L
Plt Count 157
Sodium 139
Potassium 3.8
Chloride 104
Carbon Dioxide 27
BUN 18
Creatinine 0.9
Glucose 109 H
Calcium 8.4
Vital Signs:
Vital Signs
Temp Pulse Resp BP Pulse Ox
98.8 F 85 16 123/77 96
08/20/24 16:00 08/20/24 16:00 08/20/24 16:00 08/20/24 16:00 08/20/24 16:00
I&O
08/19/24 08/20/24 08/21/24
06:59 06:59 06:59
Intake Total 2690 / 2690 1810 / 1810 50 / 50
Output Total 650 / 650 500 / 500
Balance 2040 / 2040 1310 / 1310 50 / 50
Review of Systems
-
History Source: Patient
Constitutional: Reports No Symptoms
EENT: Reports No Symptoms Reported
Respiratory: Reports No Symptoms
Cardiac: Reports No Symptoms
Abdomen/GI: Reports Abdominal Pain (Better compared to yesterday) and Constipated; Denies Nausea or Vomiting
Breast: Reports No Symptoms
Genitourinary: Reports No Symptoms
Musculoskeletal: Reports No Symptoms
Skin: Reports No Symptoms
Neuro: Reports No Symptoms
Endocrine: Reports No Symptoms
Hematologic / Lymphatic: Reports No Symptoms
Allergy / Immunology: Reports No Symptoms
Physical Exam
-
General: Well Developed, Well Nourished and No Apparent Distress
HEENT: Normocephalic
Respiratory: Clear to Auscultation
Cardiac: Regular Rhythm and S1/S2
GI: Soft, Normal Bowel Sounds, Tender (tender in the lower quadrants and RUQ. ) and Distended
Genito-urinary: No Costovertebral Tender
Musculoskeletal: No Clubbing, No Cyanosis and No Edema
Skin: Warm
Neuro: Awake, Alert, Oriented and AO x 3
Psych: Calm
[2024-08-20 19:00] VITALS: BP 119/84
[2024-08-20 23:00] VITALS: BP 127/81
[2024-08-21 03:00] VITALS: BP 124/84
[2024-08-21] MEDS: ZOSYN 50 IV ×4 (04:51→21:05)
[2024-08-21] MEDS: SYNTHROID 100 MCG PO (05:33)
[2024-08-21] MEDS: DILAUDID 0.25 MG IV ×3 (06:20→22:27)
[2024-08-21 07:20] VITALS: BP 122/82
[2024-08-21 07:24] LABS: Blood Urea Nitrogen 15 mg/dl (9-20); Calcium 8.4 mg/dl (8.4-10.2); Carbon Dioxide 27 mmol/L (22-30); Chloride 106 mmol/L (98-107); Estimated Creatinine Clearance 86 ml/min; Glucose 105 mg/dl (70-99); Potassium 3.8 mmol/L (3.5-5.1); Sodium 139 mmol/L (135-145); eGFR > 60.00
[2024-08-21 07:25] LABS: Hematocrit 35.3 % (39.0-52.0); Hemoglobin 11.6 g/dL (13.0-18.0); Mean Corp Hgb Conc. 32.9 g/dL (33.0-37.0); Mean Corpuscular Hgb 27.2 pg (27.0-31.0); Mean Corpuscular Volume 82.9 fL (80.0-94.0); Mean Platelet Volume 9.9 fL (7.4-10.4); Platelet Count 174 10^3/uL (130-400); Red Blood Cell Count 4.26 10^6/uL (4.70-6.10); Red Cell Dist. Width 13.4 % (11.5-14.5); White Blood Cell Count 11.7 10^3/uL (4.8-10.8)
[2024-08-21] MEDS: HEPARIN 5000 UNITS SC ×3 (07:45→23:05)
[2024-08-21] MEDS: ASPIR LOW (ENTERIC COATED) 81 MG PO (07:45)
[2024-08-21] MEDS: FLOMAX 0.4 MG PO (07:46)
[2024-08-21] MEDS: NEURONTIN 100 MG PO ×3 (07:47→21:06)
[2024-08-21 08:22] LABS: % Basophils 0.1 % (0-2); % Immature Granulocytes 0.3 % (0-0.5); % Lymphocytes 54.3 % (20.5-51.1); % Neutrophils 33.3 % (42.2-75.2); Absolute Eosinophils 0.6 10^3/uL (0-0.7); Absolute Lymphocytes 6.4 10^3/uL (1.2-3.4); Absolute Monocytes 0.8 10^3/uL (0.1-0.6); Absolute Neutrophils 3.9 10^3/uL (1.4-6.5); Nucleated Red Blood Cells % 0 % (-)
--- NOTE | 2024-08-21 09:26 | W.PN.UPDATE ---
Update Note
Progress Note Update
was able to tolareae a normal diet, states pain is improving, no bm, passing flatus
abd distented and tender without guarding
crs following, no surgeyr at this time
adat
ivatb with zosyn, when cleared by surgery for DC will plan to transition to moxifloxacin 400mg qd until 08/30 per ID
Dilaudid and oxy for analgesics
--- NOTE | 2024-08-21 10:22 | W.PN.CRS1 ---
Today's Communication / Plan
-
low residue
Assessment/Plan
-
64-year-old male with PMH of paroxysmal A-fib (states this has resolved, not on any AC), BPH, hypothyroidism (thyroid cancer s/p thyroid surgery), GERD, diverticulitis (first episode in 2018, no procedures needed, no episodes since), valvular
disease s/p MVR/TVR on 07/24/2024 at [place] (postoperatively, course was complicated by bronchitis for a few weeks and recent UTI, currently taking Levaquin) who presents with acute abdominal pain x1 day. His last colonoscopy was 4 or so years
ago with Shikha ROWLAND. The report is not available to me, but states this was normal and recommended to repeat in 10 years. In the ED, his WBC was 21.7, troponin was 0.069. A CT scan was done showing severe sigmoid diverticulitis associated with
flecks of free air extending up to the right upper quadrant, groin seroma and stable kidney lesion.
Vitals normal. WBC 11.7 (12.9)
�Perforated diverticulitis with flecks of free air, no abscess
�No acute surgical intervention currently; continue nonoperative measures and close monitoring
�Advance diet to low residue
� Continue IV Zosyn
� Pain control with Tylenol, oxy, Dilaudid as needed
� Continue SQH for DVT PPx
� Okay for OOB/encourage IS
� Appreciate hospitalist
Subjective Data
Subjective Data
Date of Service: August 21, 2024
Patient states he feels less bloated today. His LLQ pain has improved. He tolerated fulls without difficulty. Denies nausea or vomiting.
Objective Data
-
Vital Signs
Temp Pulse Resp BP Pulse Ox
98.5 F 74 16 122/82 94
08/21/24 07:20 08/21/24 07:20 08/21/24 07:20 08/21/24 07:20 04/22/25 07:20
Intake & Output
08/20/24 08/21/24 08/22/24
06:59 06:59 06:59
Intake Total 1810 / 1810 820 / 820 150 / 150
Output Total 500 / 500
Balance 1310 / 1310 820 / 820 150 / 150
Intake:
Oral fluids 1760 / 1760
Amount of oral supplement(s) 720 / 720
consumed
IV piggybacks 50 / 50 100 / 100 150 / 150
Output:
Urine, Voided 500 / 500
Other:
Number of approximated MODERATE 1 2 1
amounts of urine
Lab Results
08/21/24 06:24
08/21/24 06:24
Physical Exam
-
General: No Acute Distress and AOx3
Abdomen: Soft, Non Distended and Tender (LLQ- mild (improved))
Skin: Warm and Dry
[2024-08-21] MEDS: ROXICODONE 5 MG PO (12:26)
--- NOTE | 2024-08-21 13:05 | W.PN.ID1 ---
Date of Service
Date of Service: August 21, 2024
Today's Communication
Continue Zosyn.
Assessment / Plan
# Acute sigmoid diverticulitis with microperforation.
# Leukocytosis - trending down
- Conservative management for now, per Colorectal
- Continue Zosyn (d5)
- At time of discharge, transition to moxifloxacin 400mg po qd through 08/30/24.
- Trend wbc.
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
Hypothyroidism
Diverticulitis
Paroxysmal Afib s/p MAZE, LAAE 07/24/24
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
Tricuspid valve insufficiency s/p TV repair 07/24/24
Thyroid cancer s/ resection 1992
Uro lift
Right shoulder tear surgery
Chief Complaint
-: Other (Diverticulitis)
Subjective / Review of Systems
Abd pain continues to improve.
Vital Signs / Physical Exam
Vital Signs
Vital Signs
Temp Pulse Resp BP Pulse Ox
98.5 F 74 16 122/82 94
08/21/24 07:20 08/21/24 07:20 08/21/24 07:20 08/21/24 07:20 08/21/24 07:20
Physical Exam
Constitutional: No Acute Distress
Cardiovascular: Regular Rate and S1/S2
Pulmonary: Clear
Gastrointestinal: Soft, Tender (LLQ mild), Non Distended and Normal Bowel Sounds
Extremities: Negative Edema
Neurological: AO x 3
Objective Data
Lab Data
Lab Results
08/21/24 06:24
08/21/24 06:24
Estimated Creat Clear 86 ml/min 08/21/24 06:24
Total Bilirubin 1.3 mg/dl (0.2-1.3) 08/17/24 06:32
AST 27 U/L (17-59) 08/17/24 06:32
ALT 36 U/L (0-50) 08/17/24 06:32
Alkaline Phosphatase 103 U/L (38-126) 08/17/24 06:32
C-Reactive Protein 77.80 mg/L (0.0-10.00) H 08/21/24 06:24
Most recent labs reviewed.
Micro Results:
08/19/24 14:15 Respiratory Culture - Final
Sputum Usual Respiratory Alexandra
Gram Stain - Final
08/17/24 CT a/p: Findings as above most consistent with severe sigmoid diverticulitis with associated small volume pneumoperitoneum. No discrete abscess formation or drainable collection. Small right groin fluid collection measuring up to 5.4 cm in
diameter as above, most likely postoperative seroma.
--- NOTE | 2024-08-21 14:56 | W.PN.HOSP.TC ---
Addendum entered and electronically signed by Hernan Prescott MD 08/21/24 16:09:
was able to tolerate a normal diet, states pain is improving, no bm, passing flatus
abd distented and tender without guarding
crs following, no surgeyr at this time
adat
ivatb with zosyn, when cleared by surgery for DC will plan to transition to moxifloxacin 400mg qd until 08/30 per ID
dilaudid and oxy for analgesics
Original Note:
Today's Communication/Plan
-
Continue IV Zosyn, transition to moxifloxacin at time of discharge per ID
Colorectal surgery following, advanced diet to low residue
Continue to monitor closely
Assessment / Plan
Assessment / Plan
# Acute diverticulitis with microperforation
- Hemodynamically stable
- Abdominal pain improving, not febrile
- Colorectal surgery following. Continue nonoperative management and close monitoring. Advanced diet to low residue
- Continue tylenol, oxy and dilaudid as needed for pain
- ID following, continue IV Zosyn (day 5) --> transition to moxifloxacin 400 mg daily through 08/30/24 at time of discharge
# Leukocytosis
- Likely secondary to diverticulitis
- Downtrending
- Continue to trend
# Constipation
- No bowel movement since
- Passed flatus
- Continue tylenol, oxy and dilaudid as needed for pain
- Colorectal surgery advanced diet to low residue
# Elevated troponin
- Downtrending
- EKG without any acute ST-T changes
- Not symptomatic
- Follow for any chest pain
# Recent UTI
- Held Levaquin
# History of BPH s/p UroLift
- Continue tamsulosin
- Straight cath prn as needed
# Recent MVR/TVR/maze/left atrial appendage exclusion
- Not symptomatic
- Right groin open wound at prior cannulation site. Cardiothoracic surgery consulted. Recommended wound care
Full code
DVT prophylaxis heparin subcu
Anticipated Discharge: 24 - 48 hours
Subjective/Interval History
-
Date of Service: August 21, 2024
Objective Data
-
Labs:
Laboratory Results
08/21/24
06:24
WBC 11.7 H
Hgb 11.6 L
Hct 35.3 L
Plt Count 174
Sodium 139
Potassium 3.8
Chloride 106
Carbon Dioxide 27
BUN 15
Creatinine 0.9
Glucose 105 H
Calcium 8.4
Vital Signs:
Vital Signs
Temp Pulse Resp BP Pulse Ox
98.5 F 74 16 122/82 94
08/21/24 07:20 08/21/24 07:20 08/21/24 07:20 08/21/24 07:20 08/21/24 07:20
I&O
08/20/24 08/21/24 08/22/24
06:59 06:59 06:59
Intake Total 1810 / 1810 820 / 820 150 / 150
Output Total 500 / 500
Balance 1310 / 1310 820 / 820 150 / 150
Review of Systems
-
History Source: Patient
Constitutional: Reports No Symptoms
EENT: Reports No Symptoms Reported
Respiratory: Reports No Symptoms
Cardiac: Reports No Symptoms
Abdomen/GI: Reports Abdominal Pain; Denies Nausea or Vomiting
Genitourinary: Reports No Symptoms
Musculoskeletal: Reports No Symptoms
Skin: Reports No Symptoms
Neuro: Reports No Symptoms
Endocrine: Reports No Symptoms
Hematologic / Lymphatic: Reports No Symptoms
Physical Exam
-
General: Well Developed, Well Nourished, No Apparent Distress and Comfortable
HEENT: Normocephalic
Respiratory: Clear to Auscultation
Cardiac: Regular Rhythm and S1/S2
GI: Soft, Tender (Right upper quadrant and left lower quadrant more pronounced, no guarding or rebound) and Distended
Genito-urinary: No Costovertebral Tender
Musculoskeletal: No Clubbing, No Cyanosis and No Edema
Skin: Warm and Other (Right groin wound intact)
Neuro: Awake, Alert, Oriented and AO x 3
Psych: Calm
[2024-08-21 15:19] VITALS: BP 116/82
[2024-08-21 23:00] VITALS: BP 123/79
[2024-08-22] MEDS: DILAUDID 0.25 MG IV ×3 (03:05→23:01)
[2024-08-22] MEDS: ZOSYN 50 IV ×4 (03:56→22:17)
[2024-08-22 05:30] LABS: Hematocrit 36.4 % (39.0-52.0); Hemoglobin 12.2 g/dL (13.0-18.0); Mean Corp Hgb Conc. 33.5 g/dL (33.0-37.0); Mean Corpuscular Hgb 27.9 pg (27.0-31.0); Mean Corpuscular Volume 83.3 fL (80.0-94.0); Mean Platelet Volume 9.5 fL (7.4-10.4); Platelet Count 173 10^3/uL (130-400); Red Blood Cell Count 4.37 10^6/uL (4.70-6.10); Red Cell Dist. Width 13.2 % (11.5-14.5); White Blood Cell Count 11.2 10^3/uL (4.8-10.8)
[2024-08-22] MEDS: SYNTHROID 100 MCG PO (05:49)
[2024-08-22 05:56] LABS: Blood Urea Nitrogen 14 mg/dl (9-20); Calcium 8.5 mg/dl (8.4-10.2); Carbon Dioxide 25 mmol/L (22-30); Chloride 106 mmol/L (98-107); Estimated Creatinine Clearance 77 ml/min; Glucose 108 mg/dl (70-99); Sodium 140 mmol/L (135-145); eGFR > 60.00
[2024-08-22 07:05] VITALS: BP 136/84
[2024-08-22] MEDS: ASPIR LOW (ENTERIC COATED) 81 MG PO (08:09)
[2024-08-22] MEDS: NEURONTIN 100 MG PO ×3 (08:09→22:17)
[2024-08-22] MEDS: FLOMAX 0.4 MG PO (08:09)
[2024-08-22] MEDS: HEPARIN 5000 UNITS SC ×3 (08:09→23:03)
--- NOTE | 2024-08-22 08:52 | W.PN.CRS1 ---
Today's Communication / Plan
-
As below
Assessment/Plan
-
64-year-old male with PMH of paroxysmal A-fib (states this has resolved, not on any AC), BPH, hypothyroidism (thyroid cancer s/p thyroid surgery), GERD, diverticulitis (first episode in 2018, no procedures needed, no episodes since), valvular
disease s/p MVR/TVR on 07/24/2024 at [place] (postoperatively, course was complicated by bronchitis for a few weeks and recent UTI, currently taking Levaquin) who presents with acute abdominal pain x1 day. His last colonoscopy was 4 or so years
ago with [facility]. The report is not available to me, but states this was normal and recommended to repeat in 10 years. In the ED, his WBC was 21.7, troponin was 0.069. A CT scan was done showing severe sigmoid diverticulitis associated with
flecks of free air extending up to the right upper quadrant, groin seroma and stable kidney lesion.
�Perforated diverticulitis with flecks of free air, no abscess
�No acute surgical intervention currently; significantly improved; cautioned on risk of developing abscess and to call office or go to ED if any worsening pain or fevers
� Okay for regular diet
� Continue IV Zosyn; appreciate ID
� Pain control with Tylenol, oxy as needed
�For constipation, okay for Metamucil and/or stool softeners up to 1 to 3 pills/day
� Continue SQH for DVT PPx
� Okay for OOB/encourage IS
� Appreciate hospitalist
Dispo�okay for discharge from colorectal standpoint if medically clear; follow-up with me in 2 to 4 weeks
Subjective Data
Subjective Data
Date of Service: August 22, 2024
No overnight events.
Pain improved,
Denies nausea/vomiting. Tolerating diet.
+flatus -BMs +voiding
Objective Data
-
Vital Signs
Temp Pulse Resp BP Pulse Ox
98.1 F 67 18 136/84 96
08/22/24 07:05 08/22/24 07:05 08/22/24 07:05 08/22/24 07:05 08/22/24 07:05
Intake & Output
08/21/24 08/22/24 08/23/24
06:59 06:59 06:59
Intake Total 820 / 820 1350 / 1350
Balance 820 / 820 1350 / 1350
Intake:
Oral fluids 1200 / 1200
Amount of oral supplement(s) 720 / 720
consumed
IV piggybacks 100 / 100 150 / 150
Other:
Number of approximated MODERATE 2 1
amounts of urine
Lab Results
08/22/24 05:13
08/22/24 05:13
Physical Exam
-
General: No Acute Distress and AOx3
HEENT: Grossly Normal
Abdomen: Soft, Non Distended, Tender (Mildly tender in the LLQ, significantly improved since Tuesday), No Guarding and No Rebound
Skin: Warm and Dry
[2024-08-22] MEDS: ROXICODONE 5 MG PO (09:43)
--- NOTE | 2024-08-22 12:09 | W.PN.ID1 ---
Date of Service
Date of Service: August 22, 2024
Today's Communication
- Continue Zosyn (d6)
- At time of discharge, transition to moxifloxacin 400mg po qd through 08/30/24.
Assessment / Plan
# Acute sigmoid diverticulitis with microperforation.
# Leukocytosis - trending down
- Conservative management for now, per Colorectal
- Continue Zosyn (d6)
- At time of discharge, transition to moxifloxacin 400mg po qd through 08/30/24.
- Trend wbc.
- Follow up with Colorectal.
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
Hypothyroidism
Diverticulitis
Paroxysmal Afib s/p MAZE, LAAE 07/24/24
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
Tricuspid valve insufficiency s/p TV repair 07/24/24
Thyroid cancer s/ resection 1992
Uro lift
Right shoulder tear surgery
Chief Complaint
-: Other (Diverticulitis)
Subjective / Review of Systems
Tolerating regular diet.
Abd pain now localized to LLQ.
Feels better overall.
Vital Signs / Physical Exam
Vital Signs
Vital Signs
Temp Pulse Resp BP Pulse Ox
98.1 F 67 18 136/84 96
08/22/24 07:05 08/22/24 07:05 08/22/24 07:05 08/22/24 07:05 08/22/24 09:50
Physical Exam
Constitutional: No Acute Distress
Cardiovascular: Regular Rate and S1/S2
Pulmonary: Clear
Gastrointestinal: Soft, Tender (LLQ mild), Non Distended and Normal Bowel Sounds
Extremities: Negative Edema
Neurological: AO x 3
Objective Data
Lab Data
Lab Results
08/22/24 05:13
08/22/24 05:13
Estimated Creat Clear 77 ml/min 08/22/24 05:13
Total Bilirubin 1.3 mg/dl (0.2-1.3) 08/17/24 06:32
AST 27 U/L (17-59) 08/17/24 06:32
ALT 36 U/L (0-50) 08/17/24 06:32
Alkaline Phosphatase 103 U/L (38-126) 08/17/24 06:32
C-Reactive Protein 61.20 mg/L (0.0-10.00) H 08/22/24 05:13
Most recent labs reviewed.
Micro Results:
08/19/24 14:15 Respiratory Culture - Final
Sputum Usual Respiratory Alexandra
Gram Stain - Final
08/17/24 CT a/p: Findings as above most consistent with severe sigmoid diverticulitis with associated small volume pneumoperitoneum. No discrete abscess formation or drainable collection. Small right groin fluid collection measuring up to 5.4 cm in
diameter as above, most likely postoperative seroma.
--- NOTE | 2024-08-22 12:19 | CM ---
CM met with patient to review plan for discharge. Currently on IV abx with plan to transition to oral abx at discharge.
Plan: Discharge to home with no need.
--- NOTE | 2024-08-22 12:22 | CM ---
CM continues to follow for discharge planning. Pt continues to be (I) amb and adls; cleared for discharge to home today; family to provide transport.
Plan: Discharge to home with no needs.
[2024-08-22] MEDS: TYLENOL 650 MG PO (13:22)
[2024-08-22 13:25] VITALS: BP 136/84
--- NOTE | 2024-08-22 14:48 | W.PN.HOSP.TC ---
Addendum entered and electronically signed by Hernan Prescott MD 08/22/24 15:47:
Tolerating diet passing gas however has not had a bowel movement thus far.
Remains on IV antibiotics for diverticulitis with microperforation. No indications for surgery at this time
Fever, new, Provide Tylenol for fever greater than 100.9, infectious diseases following, if reoccurs obtain repeat CBC along with blood cultures. If continues to have fevers then may need to broaden antibiotics and obtain some additional imaging
BPH continue Flomax
Hypothyroid continue levothyroxine
Original Note:
Today's Communication/Plan
-
Stable for discharge this am
Febrile this pm, will cancel discharge and monitor closely
Assessment / Plan
Assessment / Plan
# Fever
- Patient was stable for discharge. Notified by nurse 14:35 that patient has fever 102. Will cancel discharge for today and monitor closely.
# Acute diverticulitis with microperforation
- Hemodynamically stable
- Abdominal pain improving
- Continue tylenol, oxy and dilaudid as needed for pain
- Colorectal surgery following. Continue nonoperative management and close monitoring. Advanced diet to regular yesterday, tolerating
- ID following, continue IV Zosyn (day 5) --> transition to moxifloxacin 400 mg daily through 08/30/24 at time of discharge
# Leukocytosis
- Likely secondary to diverticulitis
- Downtrending
- Continue to trend
# Constipation
- No bowel movement since
- Continue tylenol, oxy and dilaudid as needed for pain
- Passed flatus
- Colorectal surgery following
# Elevated troponin
- Downtrending
- EKG without any acute ST-T changes
- Not symptomatic
- Follow for any chest pain
# Recent UTI
- Held Levaquin
# History of BPH s/p UroLift
- Continue tamsulosin
- Straight cath prn as needed
# Recent MVR/TVR/maze/left atrial appendage exclusion
- Not symptomatic
- Right groin open wound at prior cannulation site. Cardiothoracic surgery consulted. Recommended wound care
Full code
DVT prophylaxis heparin subcu
Anticipated Discharge: Within 24 hours
Subjective/Interval History
-
Date of Service: August 22, 2024
Objective Data
-
Labs:
Laboratory Results
08/22/24
05:13
WBC 11.2 H
Hgb 12.2 L
Hct 36.4 L
Plt Count 173
Sodium 140
Potassium 4.0
Chloride 106
Carbon Dioxide 25
BUN 14
Creatinine 1.0
Glucose 108 H
Calcium 8.5
Vital Signs:
Vital Signs
Temp Pulse Resp BP Pulse Ox
99.5 F 86 17 136/84 100
08/22/24 13:25 08/22/24 13:25 08/22/24 13:25 08/22/24 13:25 08/22/24 13:25
I&O
08/21/24 08/22/24 08/23/24
06:59 06:59 06:59
Intake Total 820 / 820 1350 / 1350
Balance 820 / 820 1350 / 1350
--- NOTE | 2024-08-22 17:45 | PTCARENOTE ---
Pt cleared for discharge, received order to leave and called ride. When discharge vitals were taken, he was noted to have a 102 fever. PRN Tylenol administered. Pt reports feeling jittery and cold. MD made aware with new orders to cancel the
discharge and monitor over night. Pt and made aware. Temp reassessed at 99.1. All needs met at this time. Plan of care ongoing.
[2024-08-22 23:19] VITALS: BP 137/79
[2024-08-23] VITALS (15 sets, daily range): BP systolic 20–127; BP diastolic 66–82
[2024-08-23] MEDS: ZOSYN 50 IV ×3 (04:18→21:29)
[2024-08-23] MEDS: SYNTHROID 100 MCG PO (05:23)
[2024-08-23] MEDS: DILAUDID 0.25 MG IV (05:28)
--- NOTE | 2024-08-23 05:46 | DOWNTIME ---
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 Downtime documentation of patient's care, including medication administrations, has been reconciled in the electronic record per guidelines. Refer to the
patient's paper chart under the miscellaneous tab to see printed paper medication records and downtime forms.
[2024-08-23 06:37] LABS: Blood Urea Nitrogen 15 mg/dl (9-20); Calcium 8.5 mg/dl (8.4-10.2); Carbon Dioxide 24 mmol/L (22-30); Chloride 105 mmol/L (98-107); Estimated Creatinine Clearance 86 ml/min; Glucose 106 mg/dl (70-99); Sodium 137 mmol/L (135-145); eGFR > 60.00
[2024-08-23 06:53] LABS: Hematocrit 35.5 % (39.0-52.0); Hemoglobin 11.8 g/dL (13.0-18.0); Mean Corp Hgb Conc. 33.2 g/dL (33.0-37.0); Mean Corpuscular Hgb 27.3 pg (27.0-31.0); Mean Corpuscular Volume 82.2 fL (80.0-94.0); Mean Platelet Volume 9.9 fL (7.4-10.4); Platelet Count 192 10^3/uL (130-400); Red Blood Cell Count 4.32 10^6/uL (4.70-6.10); Red Cell Dist. Width 13.3 % (11.5-14.5); White Blood Cell Count 14.4 10^3/uL (4.8-10.8)
[2024-08-23 07:34] LABS: % Basophils 0.1 % (0-2); % Eosinophils 2.8 % (0-6); % Immature Granulocytes 0.5 % (0-0.5); % Lymphocytes 40.4 % (20.5-51.1); % Monocytes 6.1 % (1.7-9.3); % Neutrophils 50.1 % (42.2-75.2); Absolute Eosinophils 0.4 10^3/uL (0-0.7); Absolute Immature Granulocytes 0.1 10^3/uL (0-0.05); Absolute Lymphocytes 5.8 10^3/uL (1.2-3.4); Absolute Monocytes 0.9 10^3/uL (0.1-0.6); Absolute Neutrophils 7.2 10^3/uL (1.4-6.5); Nucleated Red Blood Cells % 0 % (-)
--- NOTE | 2024-08-23 07:58 | W.PN.HOSP.TC ---
Addendum entered and electronically signed by Milagros Fisher MD, Resident 08/23/24 18:00:
# Sepsis secondary to perforated diverticulitis
Addendum entered and electronically signed by Hernan Prescott MD 08/23/24 14:13:
NAD
Scleral Anicteric
MMM
No JVD
CTABL
RRR, S1/S2
Soft, T LLq, ND, BS+
Warm, Dry
AAOx3
Calm
Acute diverticulitis with microperforation
Remains hemodynamic on antibiotics
Pelvis fever or worsening white count
Obtain blood cultures
Likely require source control however will discuss with infectious disease about broadening antibiotics
Surgery following
BPH continue Flomax
Hypothyroid continue levothyroxine
S/p MVR/TVR maze left atrial appendage exclusion
Outpatient cardiothoracic follow-up
Original Note:
Today's Communication/Plan
-
Abdomen pelvis CT with contrast
Plan for tentative surgery - made n.p.o.
Appreciate ID input for antibiotics
Assessment / Plan
Assessment / Plan
# Acute diverticulitis with microperforation
- Hemodynamically stable
- Abdominal pain improving
- Continue tylenol, oxy and dilaudid as needed for pain
- Colorectal surgery following. Given fever, increased leukocytosis and CRP, plan for CT and tentative surgery later today
- Advanced diet to regular, tolerating --> now n.p.o. for tentative surgery
- ID following, continue IV Zosyn (day 6) --> appreciate ID input for antibiotics
# Fever
- No fever detected since yesterday afternoon
# Leukocytosis
- Likely secondary to diverticulitis
- Downtrending --> trended up to 14.4 today
- Colorectal surgery following, potential plan for surgery later today after CT scan
# Constipation
- No bowel movement since
- Continue tylenol, oxy and dilaudid as needed for pain
- Passed flatus
- Colorectal surgery following
# Elevated troponin
- Downtrending
- EKG without any acute ST-T changes
- Not symptomatic
- Follow for any chest pain
# Recent UTI
- Held Levaquin
# History of BPH s/p UroLift
- Continue tamsulosin
- Straight cath prn as needed
# Recent MVR/TVR/maze/left atrial appendage exclusion
- Not symptomatic
- Right groin open wound at prior cannulation site. Cardiothoracic surgery consulted. Recommended wound care
Full code
DVT prophylaxis heparin subcu
Anticipated Discharge: > 48 hours
Subjective/Interval History
-
Date of Service: August 23, 2024
Objective Data
-
Labs:
Laboratory Results
08/23/24
05:18
WBC 14.4 H
Hgb 11.8 L
Hct 35.5 L
Plt Count 192
Sodium 137
Potassium 4.0
Chloride 105
Carbon Dioxide 24
BUN 15
Creatinine 0.9
Glucose 106 H
Calcium 8.5
Vital Signs:
Vital Signs
Temp Pulse Resp BP Pulse Ox
99.5 F 85 18 137/79 98
08/22/24 23:19 08/22/24 23:19 08/22/24 23:19 08/22/24 23:19 08/22/24 23:19
I&O
08/22/24 08/23/24 08/24/24
06:59 06:59 06:59
Intake Total 1350 / 1350 1440 / 1440
Balance 1350 / 1350 1440 / 1440
Review of Systems
-
History Source: Patient
Constitutional: Reports No Symptoms
EENT: Reports No Symptoms Reported
Respiratory: Reports No Symptoms
Cardiac: Reports No Symptoms
Abdomen/GI: Reports Abdominal Pain and Constipated
Genitourinary: Reports No Symptoms
Musculoskeletal: Reports No Symptoms
Skin: Reports No Symptoms
Neuro: Reports No Symptoms
Endocrine: Reports No Symptoms
Hematologic / Lymphatic: Reports No Symptoms
Allergy / Immunology: Reports No Symptoms
Physical Exam
-
General: Well Developed, Well Nourished, No Apparent Distress and Comfortable; Negative Fever (No fever detected since yesterday afternoon)
HEENT: Normocephalic
Respiratory: Clear to Auscultation
Cardiac: Regular Rhythm and S1/S2
GI: Soft, Normal Bowel Sounds, Tender (Left upper and lower quadrant, without guarding or rebound) and Distended
Genito-urinary: No Costovertebral Tender
Musculoskeletal: No Clubbing, No Cyanosis and No Edema
Skin: Warm
Neuro: Awake, Alert, Oriented and AO x 3
Psych: Anxious
[2024-08-23] MEDS: FLOMAX 0.4 MG PO (08:02)
[2024-08-23] MEDS: NEURONTIN 100 MG PO (08:02)
[2024-08-23] MEDS: ASPIR LOW (ENTERIC COATED) 81 MG PO (08:02)
[2024-08-23] MEDS: HEPARIN 5000 UNITS SC (08:03)
--- NOTE | 2024-08-23 09:27 | W.PN.ID1 ---
Date of Service
Date of Service: August 23, 2024
Today's Communication
See below.
Assessment / Plan
# Acute sigmoid diverticulitis with microperforation.
# Leukocytosis - trending up
# New fever yesterday (ID was not alerted of temps)
- Check blood cultures x 2.
-Agree with CT a/p to assess for diverticular abscess, progression.
Will need source control as primary management; abx's secondary
- Continue broad-spectrum abx Zosyn (d7).
- Trend temps/wbc
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
Hypothyroidism
Diverticulitis
Paroxysmal Afib s/p MAZE, LAAE 07/24/24
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
Tricuspid valve insufficiency s/p TV repair 07/24/24
Thyroid cancer s/ resection 1992
Uro lift
Right shoulder tear surgery
Chief Complaint
-: Fever, Leukocytosis and Other (Diverticulitis)
Subjective / Review of Systems
Events noted. Discharge cancelled yesterday due to fever. Pt reports he had chills with fever. LLQ abd pain stable. No BM yet.
Vital Signs / Physical Exam
Vital Signs
Vital Signs
Temp Pulse Resp BP Pulse Ox
98.4 F 73 18 127/76 97
08/23/24 07:05 08/23/24 07:05 08/23/24 07:05 08/23/24 07:05 08/23/24 07:05
Selected Entries
08/22/24
14:15 08/22/24
15:04
Temp 102.1 F H 101.4 F H
Physical Exam
Constitutional: Comfortable
Eyes: Sclera Anicteric
Cardiovascular: Regular Rate and S1/S2
Pulmonary: Clear
Gastrointestinal: Soft, Tender (LLQ mild-mod), Non Distended and Decreased Bowel Sounds
Extremities: Negative Edema
Neurological: AO x 3
Objective Data
Lab Data
Lab Results
08/23/24 05:18
08/23/24 05:18
Estimated Creat Clear 86 ml/min 08/23/24 05:18
Total Bilirubin 1.3 mg/dl (0.2-1.3) 08/17/24 06:32
AST 27 U/L (17-59) 08/17/24 06:32
ALT 36 U/L (0-50) 08/17/24 06:32
Alkaline Phosphatase 103 U/L (38-126) 08/17/24 06:32
C-Reactive Protein 89.10 mg/L (0.0-10.00) H 08/23/24 05:18
Most recent labs reviewed.
Micro Results:
08/23/24 09:10 Blood Culture - Pending
Blood/Venous
08/19/24 14:15 Respiratory Culture - Final
Sputum Usual Respiratory Alexandra
Gram Stain - Final
08/17/24 CT a/p: Findings as above most consistent with severe sigmoid diverticulitis with associated small volume pneumoperitoneum. No discrete abscess formation or drainable collection. Small right groin fluid collection measuring up to 5.4 cm in
diameter as above, most likely postoperative seroma.
Care Review
Plan reviewed with: Physician (Dr. Beny Stuart)
[2024-08-23] MEDS: OMNIPAQUE 50 ML PO (09:47)
--- NOTE | 2024-08-23 12:12 | W.PN.CRS1 ---
Today's Communication / Plan
-
CT abdomen and pelvis
N.p.o.
Assessment/Plan
-
64-year-old male with PMH of paroxysmal A-fib (states this has resolved, not on any AC), BPH, hypothyroidism (thyroid cancer s/p thyroid surgery), GERD, diverticulitis (first episode in 2018, no procedures needed, no episodes since), valvular
disease s/p MVR/TVR on 07/24/2024 at [place] (postoperatively, course was complicated by bronchitis for a few weeks and recent UTI, currently taking Levaquin) who presents with acute abdominal pain x1 day. His last colonoscopy was 4 or so years
ago with [facility]. The report is not available to me, but states this was normal and recommended to repeat in 10 years. In the ED, his WBC was 21.7, troponin was 0.069. A CT scan was done showing severe sigmoid diverticulitis associated with
flecks of free air extending up to the right upper quadrant, groin seroma and stable kidney lesion.
-Given increase in WBC, as well as abdominal pain and fever, will order CT abdomen and pelvis
- N.p.o.
� Continue IV Zosyn; appreciate ID
� Pain control with Tylenol, oxy as needed
� Continue SQH for DVT PPx
� Okay for OOB/encourage IS
� Appreciate hospitalist
Subjective Data
Subjective Data
Date of Service: August 23, 2024
Patient is not feeling well today. He has increased left lower quadrant pain. He is not sleeping very much. He is febrile overnight.
Objective Data
-
Vital Signs
Temp Pulse Resp BP Pulse Ox
98.4 F 73 18 127/76 96
08/23/24 07:05 08/23/24 07:05 08/23/24 07:05 08/23/24 07:05 08/23/24 11:25
Intake & Output
08/22/24 08/23/2425
06:59 06:59 06:59
Intake Total 1350 / 1350 1440 / 1440
Balance 1350 / 1350 1440 / 1440
Intake:
Oral fluids 1200 / 1200 1440 / 1440
IV piggybacks 150 / 150
Other:
Number of approximated MODERATE 1 5
amounts of urine
Lab Results
08/23/24 05:18
08/23/24 05:18
Physical Exam
-
General: No Acute Distress and AOx3
Abdomen: Soft, Non Distended and Tender (Left lower quadrant-moderate)
Skin: Warm and Dry
--- NOTE | 2024-08-23 13:38 | W.PN.UPDATE ---
Update Note
Progress Note Update
Today's CT scan reviewed. Lots of subdiaphragmatic free air--read as 'severe perforated sigmoid diverticulitis'. Patient tender particularly in lower quadrants on exam. Discussed situation with patient and his and recommended trip to OR for
Ziggy's resection. Risks and benefits described. Risks touched on include but not limited to bleeding, infection, ureteral injury, bowel or solid organ injury, rectal stump leak, anastomotic issues (if created), urinary or sexual dysfunction,
recurrent diverticulitis, and anesthetic risks. He agrees to proceed.
--- NOTE | 2024-08-23 14:27 | WOUNDNOTE ---
[facility] RN NOTE: Left sided ostomy siting requested for surgery today. Rationale for stoma siting reviewed with patient. The rectus abdominal muscle was located and care was taken to avoid creases and folds. Due to body habitus, creases and folds, upper
quadrant recommended. Dr. Marsh made aware. Patient made aware that surgeon will make final determination of ostomy placement. Will follow up with patient for teaching after surgery.
--- NOTE | 2024-08-23 15:44 | PN.CDI ---
CDI
- -
CDI:
Physician Documentation Request
Admit Date: 08/17/24 10:36
Dear Doctor,
Please review the following and provide your response in the progress notes.
Clinical Indicators:
Pt admitted with Acute diverticulitis with microperforation.
Selected Entries
08/22/24
14:15 08/22/24
15:04
Temp 102.1 F H 101.4 F H
Laboratory Tests
08/17/24 08/22/24 08/23/24
06:32 05:13 05:18
WBC 21.7 H 11.2 H 14.4 H
08/23 Colorectal: 'I suspect he might have an abscess or worsening of the inflammation....Given increase in WBC, as well as abdominal pain and fever, will order CT abdomen and pelvis..Continue IV Zosyn'
Please clarify which of the following most accurately describes the status of the patient's infection:
Sepsis (Evolved during hospitalization)
- Systemic manifestations of infection, with 2 or more SIRS criteria which include:
- Fever >100.4 degrees F or hypothermia < 96.8 degrees F
- Leukocytosis - WBC > 12,000 or leukopenia - WBC < 4,000 or > 10% bands
- Tachycardia > 90 beats per minute
- Tachypnea - RR > 20 breaths per minute or PaCO2 , 32mmHg
Source: Merck Manual 2012
- Indicate the known or suspected organism
- Indicate the known or suspected underlying infection, such as UTI, pneumonia or cellulitis
- Indicate if a suspected bacterial infection of unknown source
Localized Infection Only, Without Systemic Illness
- indicate the site/source
Other
Use of terms such as suspected, likely, concern for, or probable (associated with a specific diagnosis that is being evaluated, monitored, or treated as if it exists) are acceptable and can be coded in the inpatient setting, when documented at the
time of discharge.
Thank you,
Hailey Carmichael RN, BSN
CDI Specialist
Please use your independent medical judgment in providing your response.
[2024-08-23] MEDS: ZOSYN IV (16:10)
--- NOTE | 2024-08-23 17:29 | W.IMMPOSTOP ---
Surgical Immed Post Op Note
-
Primary Surgeon: Cee Marsh MD
Assisting Surgeon: SYDNEY James
Pre-op Diagnosis: perforated sigmoid diverticulitis
Post-op Diagnosis: same
Procedure Performed: 1) exploratory laparotomy 2) sigmoidectomy 3) repair serosal rent/partial thickness enterotomy 4) loop ileostomy creation 5) flexible sigmoidoscopy
Anesthesia Type: general plus TAP (by anesthesia)
Specimen / Cultures: 1) abdominal fluid cultures 2) sigmoid colon
Estimated Blood Loss: 75 cc
Complications: small bowel serosal tear--repaired
Operative Findings: perforated sigmoid diverticulitis with feculent and exudative contamination
Saleem in bladder.
NGT in stomach--confirmed.
Will continue antibiotics.
Sending back to med surg.
[2024-08-23] MEDS: TORADOL 10 MG IV ×2 (18:11→23:34)
[2024-08-23] MEDS: DILAUDID 0.5 MG IV ×2 (19:05→23:34)
[2024-08-23] MEDS: NORMOSOL-R/PLASMALYTE-A 1000 IV (19:12)
--- NOTE | 2024-08-23 20:00 | PTCARENOTE ---
Pt. arrived to 2S from PACU around 1930. Surgical sites assessed with off-going PACU nurse at bedside, NGT placed to suction per orders, IVF infusing, indwelling urinary catheter putting out clear yellow urine, and VSS. Pt. oriented to new room and
family at bedside.
[2024-08-23] MEDS: OFIRMEV 100 IV (21:05)
[2024-08-23] MEDS: NEURONTIN PO (21:59)
[2024-08-23] MEDS: NEURONTIN 100 MG TUBE (22:11)
[2024-08-24 03:25] VITALS: BP 118/69
[2024-08-24] MEDS: OFIRMEV 100 IV ×3 (04:02→15:54)
[2024-08-24] MEDS: ZOSYN 50 IV ×4 (04:26→22:59)
[2024-08-24] MEDS: TORADOL 10 MG IV ×4 (05:54→23:08)
[2024-08-24] MEDS: SYNTHROID 100 MCG TUBE (05:56)
[2024-08-24] MEDS: DILAUDID 0.25 MG IV ×2 (06:06→10:08)
[2024-08-24 07:40] VITALS: BP 144/79
[2024-08-24 07:53] LABS: Hematocrit 36.6 % (39.0-52.0); Mean Corp Hgb Conc. 32.8 g/dL (33.0-37.0); Mean Corpuscular Hgb 27.1 pg (27.0-31.0); Mean Corpuscular Volume 82.8 fL (80.0-94.0); Mean Platelet Volume 9.8 fL (7.4-10.4); Platelet Count 233 10^3/uL (130-400); Red Blood Cell Count 4.42 10^6/uL (4.70-6.10); Red Cell Dist. Width 13.6 % (11.5-14.5); White Blood Cell Count 17.9 10^3/uL (4.8-10.8)
[2024-08-24 08:00] LABS: Blood Urea Nitrogen 14 mg/dl (9-20); Carbon Dioxide 26 mmol/L (22-30); Chloride 101 mmol/L (98-107); Estimated Creatinine Clearance 86 ml/min; Glucose 112 mg/dl (70-99); Potassium 4.1 mmol/L (3.5-5.1); Sodium 136 mmol/L (135-145); eGFR > 60.00
[2024-08-24 08:19] LABS: % Basophils 0.1 % (0-2); % Eosinophils 0.5 % (0-6); % Immature Granulocytes 0.9 % (0-0.5); % Lymphocytes 40.2 % (20.5-51.1); % Monocytes 5.1 % (1.7-9.3); % Neutrophils 53.2 % (42.2-75.2); Absolute Eosinophils 0.1 10^3/uL (0-0.7); Absolute Immature Granulocytes 0.2 10^3/uL (0-0.05); Absolute Lymphocytes 7.2 10^3/uL (1.2-3.4); Absolute Monocytes 0.9 10^3/uL (0.1-0.6); Absolute Neutrophils 9.5 10^3/uL (1.4-6.5); Nucleated Red Blood Cells % 0 % (-)
[2024-08-24] MEDS: PROTONIX IV 40 MG IV ×2 (09:04→20:51)
[2024-08-24] MEDS: NSS (PRESERVATIVE FREE) 10 ML IV ×2 (09:04→20:52)
[2024-08-24] MEDS: NEURONTIN 100 MG TUBE ×3 (09:04→22:59)
[2024-08-24] MEDS: FLOMAX 0.4 MG TUBE (09:04)
[2024-08-24] MEDS: NORMOSOL-R/PLASMALYTE-A 1000 IV (10:08)
[2024-08-24 11:10] VITALS: BP 108/74
--- NOTE | 2024-08-24 11:34 | W.PN.CRS1 ---
Today's Communication / Plan
-
as below
Assessment/Plan
-
64-year-old male with PMH of paroxysmal A-fib (states this has resolved, not on any AC), BPH, hypothyroidism (thyroid cancer s/p thyroid surgery), GERD, diverticulitis (first episode in 2018, no procedures needed, no episodes since), valvular
disease s/p MVR/TVR on 07/24/2024 at [place] (postoperatively, course was complicated by bronchitis for a few weeks and recent UTI, currently taking Levaquin) who presents with acute abdominal pain x1 day. His last colonoscopy was 4 or so years
ago with [facility]. The report is not available to me, but states this was normal and recommended to repeat in 10 years. In the ED, his WBC was 21.7, troponin was 0.069. A CT scan was done showing severe sigmoid diverticulitis associated with
flecks of free air extending up to the right upper quadrant, groin seroma and stable kidney lesion. Initially, treated non-operatively and he had improved until 08/23, spiked a fever and repeat CT showed worsening free air
POD 1 ex lap, sigmoidectomy with EEA stapled anastomosis, diverting loop ileostomy
AFVSS
WBC 17.9 from 14.4, Hb 12.0 from 11.8, CR 0.9
�Continue n.p.o. with NGT; switch oral meds to IV
� Continue pain control with Toradol, Dilaudid as needed
� Continue IV Zosyn; appreciate ID
� Continue SQH for DVT PPx
�DC Saleem, monitor for void
� Okay for OOB/encourage IS
� Appreciate hospitalist
Subjective Data
Subjective Data
Date of Service: August 24, 2024
No overnight events.
Pain controlled.
Denies nausea/vomiting. Patient is n.p.o. with NGT.
-Ostomy function + Saleem
Objective Data
-
Vital Signs
Temp Pulse Resp BP Pulse Ox
97.9 F 76 16 144/79 96
08/24/24 07:40 08/24/24 07:40 08/24/24 07:40 08/24/24 07:40 08/24/24 10:18
Intake & Output
08/23/24 08/24/24 08/25/24
06:59 06:59 06:59
Intake Total 1440 / 1440 100 / 100
Output Total 210 / 210 630 / 630
Balance 1440 / 1440 -110 / -110 -630 / -630
Intake:
Oral fluids 1440 / 1440
IV fluids (Total) 100 / 100
normosol 100 / 100
Output:
Liquid stool amount 150 / 150
Ileostomy 150 / 150
Drain Output (Total) 60 / 60 80 / 80
Left Abdomen [place] 60 / 60 80 / 80
Urine, Saleem 150 / 150 400 / 400
Other:
Number of approximated MODERATE 5
amounts of urine
Lab Results
08/24/24 06:49
08/24/24 06:49
Physical Exam
-
General: No Acute Distress and AOx3
HEENT: Grossly Normal
Abdomen: Soft, Non Distended, Tender (Appropriately tender near midline) and Other (Ostomy pink, no stool or flatus in appliance; ZACH-140 mL serosanguineous, NGT-bilious output in tubing)
Wound: No Signs of Infection and Dressing in Place (Aquacel with stable strikethrough)
--- NOTE | 2024-08-24 12:23 | CM ---
Reviewed the chart notes and spoke with the patient's spouse and son at the bedside. Patient is POD 1 ex lap, sigmoidectomy with EEA stapled anastomosis with diverting loop ileostomy. NGT to lws. CM continues to be available to patient/family and
is monitoring medical plan for needs at discharge.
Plan: Discharge plans will depend on the patient's progress.
--- NOTE | 2024-08-24 12:49 | W.PN.HOSP.TC ---
Addendum entered and electronically signed by Hernan Prescott MD 08/24/24 14:06:
NAD
Scleral Anicteric
DMM, NGT
No JVD
CTABL
RRR, S1/S2
Soft, Tenderness along suture line, ND, BS+, ZACH drain with serosang fluid, ostomy without gas/stool
Warm, Dry
AAOx3
Calm
Acute diverticulitis with microperforation
Noted to have fevers and worsening white count therefore repeat CT abdomen pelvis was obtained demonstrating abnormalities with free air in the abdomen secondary to severe perforated sigmoid diverticulitis
S/p ex lap sigmoidectomy with EEA stapled end of stenosis, diverting loop ileostomy 08/19/2024
Remains hemodynamic on antibiotics
Continue IV antibiotics
NPO
NGT to low wal suction for decompression
ADAT per surgery
BPH
Continue Flomax
Hypothyroid
Continue levothyroxine
S/p MVR/TVR maze left atrial appendage exclusion
Outpatient cardiothoracic follow-up
Original Note:
Today's Communication/Plan
-
Postop management per colorectal surgery, continue n.p.o. with NGT
Protonix twice daily
Per surgery, heparin subcu for DVT prophylaxis
Assessment / Plan
Assessment / Plan
# Acute diverticulitis with microperforation
# Sepsis secondary to diverticulitis perforation
- POD #1
- Hemodynamically stable
- Continue tylenol, oxy and dilaudid as needed for pain
- Status post exploratory laparotomy, sigmoidectomy and ileostomy, colorectal surgery following.
- Per surgery, continue n.p.o. with NGT
- ID following, continue IV Zosyn (day 7)
# Upper GI bleed
- Bloody output from NG tube
- Switch to Protonix twice daily
- Hemoglobin stable
# Leukocytosis
- Likely reactive, secondary to surgery
- Continue antibiotics
- Continue to trend
# Constipation
- No bowel movement or gas passage since yesterday
- Continue tylenol, oxy and dilaudid as needed for pain
- Colorectal surgery following
# Elevated troponin
- Downtrending
- EKG without any acute ST-T changes
- Not symptomatic
- Follow for any chest pain
# Recent UTI
- Held Levaquin
# History of BPH s/p UroLift
- Continue tamsulosin
- Straight cath prn as needed
# Recent MVR/TVR/maze/left atrial appendage exclusion
- Not symptomatic
- Right groin open wound at prior cannulation site. Cardiothoracic surgery consulted. Recommended wound care
Full code
DVT prophylaxis heparin subcu
Anticipated Discharge: > 48 hours
Subjective/Interval History
-
Date of Service: August 24, 2024
Objective Data
-
Labs:
Laboratory Results
08/24/24
06:49
WBC 17.9 H
Hgb 12.0 L
Hct 36.6 L
Plt Count 233 D
Sodium 136
Potassium 4.1
Chloride 101
Carbon Dioxide 26
BUN 14
Creatinine 0.9
Glucose 112 H
Calcium 8.0 L
Vital Signs:
Vital Signs
Temp Pulse Resp BP Pulse Ox
97.9 F 76 16 144/79 96
08/24/24 07:40 08/24/24 07:40 08/24/24 07:40 08/24/24 07:40 08/24/24 10:18
I&O
08/23/24 08/24/24 08/25/24
06:59 06:59 06:59
Intake Total 1440 / 1440 100 / 100
Output Total 210 / 210 630 / 630
Balance 1440 / 1440 -110 / -110 -630 / -630
Review of Systems
-
History Source: Patient
Constitutional: Reports No Symptoms
EENT: Reports No Symptoms Reported
Respiratory: Reports No Symptoms
Cardiac: Reports No Symptoms
Abdomen/GI: Reports Abdominal Pain; Denies Nausea
Genitourinary: Reports No Symptoms
Musculoskeletal: Reports No Symptoms
Skin: Reports No Symptoms
Neuro: Reports No Symptoms
Endocrine: Reports No Symptoms
Hematologic / Lymphatic: Reports No Symptoms
Psych: Reports Sad
Physical Exam
-
General: Well Developed, Well Nourished, No Apparent Distress and Comfortable
HEENT: Normocephalic
Respiratory: Clear to Auscultation
Cardiac: Regular Rhythm and S1/S2
GI: Soft, Nondistended, Normal Bowel Sounds, Tender and Ostomy
Genito-urinary: No Costovertebral Tender
Musculoskeletal: No Clubbing, No Cyanosis and No Edema
Skin: Warm
Neuro: Awake, Alert, Oriented and AO x 3
Psych: Calm
[2024-08-24 13:38] VITALS: BMI 26.5
--- NOTE | 2024-08-24 14:04 | PTCARENOTE ---
Pt refused to have catheter removed today, wants to wait until tomorrow. Pt had a gore catheter during a previous surgery, and stated that there was trauma caused by removal. Pt also requested the Dr. Rivera be consulted given pt's history.
Colorectal PA made aware.
--- NOTE | 2024-08-24 14:15 | WOUNDNOTE ---
[facility] RN NOTE: Patient visited s/p colostomy placement on 08/24. asked that patient not be disturbed. Information booklet left at bedside and ostomy supplies ordered from [facility]. RNWaleska made aware. Will follow up with patient and for ostomy
teaching.
[2024-08-24] MEDS: DILAUDID 0.5 MG IV ×3 (14:20→23:06)
--- NOTE | 2024-08-24 14:53 | W.PN.ID1 ---
Date of Service
Date of Service: August 24, 2024
Today's Communication
Contoinue Zosyn.
Assessment / Plan
# Acute sigmoid diverticulitis perforation with feculent contamination
# Leukocytosis - trending up
# Fever resolving
- 08/23 s/p ex-lap sigmoidectomy, repair of small bowel tear, loop ileostomy
Appreciate colorectal for sending OR cx: GNR
- Blood cultures x 2 neg to date
- Continue Zosyn (d1 recount from date of surgery).
- Trend temps/wbc
# Conditions [employer]
Hypothyroidism
Diverticulitis
Paroxysmal Afib s/p MAZE, LAAE 07/24/24
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
Tricuspid valve insufficiency s/p TV repair 07/24/24
Thyroid cancer s/ resection 1992
Uro lift
Right shoulder tear surgery
Chief Complaint
-: Leukocytosis and Other (Diverticulitis)
Vital Signs / Physical Exam
Vital Signs
Vital Signs
Temp Pulse Resp BP Pulse Ox
98.0 F 79 16 108/74 97
08/24/24 11:10 08/24/24 11:10 08/24/24 11:10 08/24/24 11:10 08/24/24 11:10
Physical Exam
Constitutional: Comfortable
Eyes: Sclera Anicteric
Cardiovascular: Regular Rate and S1/S2
Pulmonary: Clear
Gastrointestinal: Soft, Tender, Non Distended, Decreased Bowel Sounds and Other (ZACH drain: serosanguinous fluid)
Extremities: Negative Edema
Objective Data
Lab Data
Lab Results
08/24/24 06:49
08/24/24 06:49
Estimated Creat Clear 86 ml/min 08/24/24 06:49
Total Bilirubin 1.3 mg/dl (0.2-1.3) 08/17/24 06:32
AST 27 U/L (17-59) 08/17/24 06:32
ALT 36 U/L (0-50) 08/17/24 06:32
Alkaline Phosphatase 103 U/L (38-126) 08/17/24 06:32
C-Reactive Protein 89.10 mg/L (0.0-10.00) H 08/23/24 05:18
Most recent labs reviewed.
Micro Results:
08/23/24 15:01 Wound Culture - Preliminary
Abdomen Gram negative bacilli
Gram Stain - Preliminary
08/23/24 09:53 Blood Culture - Preliminary
Blood/Venous No Growth in 24 hours- Final report to follow
08/23/24 09:10 Blood Culture - Preliminary
Blood/Venous No Growth in 24 hours- Final report to follow
08/23/24 15:01 Anaerobic Culture - Pending
Abdomen
08/19/24 14:15 Respiratory Culture - Final
Sputum Usual Respiratory Alexandra
Gram Stain - Final
08/23/24 CT a/p: 1. Findings consistent with severe perforated sigmoid diverticulitis. Severe bowel wall thickening and mesenteric inflammatory change is seen adjacent to the proximal sigmoid colon. Collection of extraluminal air adjacent to the
inflamed portion of the sigmoid colon is consistent with perforation.
2. Large amount of free intraperitoneal air, significantly increased in amount compared to prior CT dated 08/17/2024.
3. Airspace consolidation at the right lung base, which may represent subsegmental atelectasis or pneumonia. Small right pleural effusion.
4. Bowel wall thickening at the gastroesophageal junction. Please correlate for symptoms, and if indicated with upper GI endoscopy.
08/17/24 CT a/p: Findings as above most consistent with severe sigmoid diverticulitis with associated small volume pneumoperitoneum. No discrete abscess formation or drainable collection. Small right groin fluid collection measuring up to 5.4 cm in
diameter as above, most likely postoperative seroma.
[2024-08-24 15:40] VITALS: BP 131/70
[2024-08-24] MEDS: LOVENOX 40 MG SC (18:13)
[2024-08-24 19:30] VITALS: BP 118/74
[2024-08-24] MEDS: NEURONTIN TUBE (22:59)
[2024-08-24 23:28] VITALS: BP 117/69
[2024-08-25] MEDS: NORMOSOL-R/PLASMALYTE-A 1000 IV (02:38)
[2024-08-25 03:21] VITALS: BP 133/82
[2024-08-25] MEDS: ZOSYN 50 IV ×4 (03:28→21:14)
[2024-08-25] MEDS: DILAUDID 0.5 MG IV (03:28)
[2024-08-25] MEDS: SYNTHROID 100 MCG TUBE (05:45)
[2024-08-25] MEDS: TORADOL 10 MG IV ×4 (05:45→23:40)
[2024-08-25 06:00] VITALS: BMI 26.7
[2024-08-25 06:12] LABS: % Basophils 0.1 % (0-2); % Eosinophils 4.2 % (0-6); % Immature Granulocytes 1.1 % (0-0.5); % Monocytes 4.9 % (1.7-9.3); % Neutrophils 51.7 % (42.2-75.2); Absolute Eosinophils 0.6 10^3/uL (0-0.7); Absolute Immature Granulocytes 0.2 10^3/uL (0-0.05); Absolute Lymphocytes 5.6 10^3/uL (1.2-3.4); Absolute Monocytes 0.7 10^3/uL (0.1-0.6); Absolute Neutrophils 7.7 10^3/uL (1.4-6.5); Hematocrit 33.7 % (39.0-52.0); Hemoglobin 11.2 g/dL (13.0-18.0); Mean Corp Hgb Conc. 33.2 g/dL (33.0-37.0); Mean Corpuscular Hgb 27.3 pg (27.0-31.0); Mean Corpuscular Volume 82.2 fL (80.0-94.0); Mean Platelet Volume 9.9 fL (7.4-10.4); Nucleated Red Blood Cells % 0 % (-); Platelet Count 238 10^3/uL (130-400); Red Cell Dist. Width 13.6 % (11.5-14.5); White Blood Cell Count 14.8 10^3/uL (4.8-10.8)
[2024-08-25 06:30] LABS: Blood Urea Nitrogen 16 mg/dl (9-20); Calcium 7.9 mg/dl (8.4-10.2); Carbon Dioxide 26 mmol/L (22-30); Chloride 102 mmol/L (98-107); Estimated Creatinine Clearance 86 ml/min; Glucose 90 mg/dl (70-99); Sodium 136 mmol/L (135-145); eGFR > 60.00
[2024-08-25 07:40] VITALS: BP 124/78
[2024-08-25] MEDS: NEURONTIN 100 MG TUBE (08:47)
[2024-08-25] MEDS: FLOMAX 0.4 MG TUBE (08:47)
[2024-08-25] MEDS: PROTONIX IV 40 MG IV ×2 (08:48→21:07)
[2024-08-25] MEDS: NSS (PRESERVATIVE FREE) 10 ML IV ×2 (08:48→21:07)
[2024-08-25] MEDS: DILAUDID 0.25 MG IV ×2 (08:52→14:07)
--- NOTE | 2024-08-25 09:55 | W.PN.GS2 ---
Addendum entered and electronically signed by Danny Monsalve MD 08/25/24 10:17:
Patient seen and examined with surgical MANAGED SERVICES SALES CONSULTANT. Agree with documented progress note.
Postoperative pain present but adequately controlled
No nausea
Stoma ostomy functioning starting
AFVSS
NAD AAO x 3
ABD: Soft, mild tenderness to palpation.
Right sided loop ileostomy with some edema. Mucosa pink. Some digestive fluid in ostomy appliance.
Left-sided ZACH with serosanguineous fluid
Midline incision dressing changed wound chilango in place
A/P: POD #2 status post ex lap sigmoidectomy and diverting loop ileostomy
NG tube output is diminishing and some ostomy function started -will return in afternoon for possible NG tube removal pending quality quantity of drainage
Multimodal pain control options
ZACH
ID following regarding antibiotic management
Original Note:
Today's Communication / Plan
-
NPO/IVF
May be able to d/c NGT later today
Assessment / Plan
-
64 yo male with h/o PAF (not on AC), BPH with urinary retention (on flomax with prn CIC), s/p MVR/TVR 07/24/24 admitted for diverticulitis which worsened despite optimized medical management
POD #2 ex lap sigmoidectomy with eea stapled anastomosis, diverting loop ileostomy
Afebrile, VSS
Stoma pink/viable with some liquid stool in appliance
H/H stable, WBC trending down
--Tentative removal of NGT this afternoon if low outputs
--Analgesics scheduled and prn
--OOB/Ambulate
--Stoma team consulted/following
--Ok to d/c Gore, but will need to follow bladder scans and intermittently cath prn. C/W flomax
--ABX as per ID
--C/W ZACH, follow outputs
--IVF until tolerating PO
--Lovenox sq and SCDs for VTE ppx
Subjective Data
-
Date of Service: August 25, 2024
Patient seen and examined at bedside with Dr. Monsalve. Denies n/v. Passing some flatus via the stoma. Pain present but manageable/controlled.
Objective Data
-
Intake and Output
08/24/24 08/25/24 08/26/24
06:59 06:59 06:59
Intake Total 100 / 100 1030 / 1030
Output Total 210 / 210 2089 / 2089
Balance -110 / -110 -1060 / -1060
Intake:
IV fluids (Total) 100 / 100 750 / 750
normosol 100 / 100
IV piggybacks 100 / 100
Amount instilled into GI Tube ( 180 / 180
Total)
Bradshaw Sump 180 / 180
Output:
Liquid stool amount 150 / 150
Ileostomy 150 / 150
Drain Output (Total) 60 / 60 115 / 115
Left Abdomen Davonte-Waldron 60 / 60 115 / 115
Gastrointestinal tube output ( 700 / 700
Total)
Bradshaw Sump 700 / 700
Urine, Gore 150 / 150 1125 / 1125
Vital Signs
Temp Pulse Resp BP Pulse Ox
98.5 F 79 16 124/78 96
08/25/24 07:40 08/25/24 07:40 08/25/24 07:40 08/25/24 07:40 08/25/24 07:40
Lab Results
08/25/24 05:27
08/25/24 05:27
Calcium 7.9 mg/dl (8.4-10.2) L 08/25/24 05:27
Magnesium 2.0 mg/dl (1.6-2.3) 08/24/24 06:49
Total Bilirubin 1.3 mg/dl (0.2-1.3) 08/17/24 06:32
AST 27 U/L (17-59) 08/17/24 06:32
ALT 36 U/L (0-50) 08/17/24 06:32
Alkaline Phosphatase 103 U/L (38-126) 08/17/24 06:32
Total Protein 7.4 g/dl (6.3-8.2) 08/17/24 06:32
Albumin 3.7 g/dl (3.5-5.0) 08/17/24 06:32
Physical Exam
-
NAD
ABD soft, expected tenderness, ND. NGT with clear, yellow outputs
Stoma to right abd pink/viable with red rubber bridge, liquid stool/minimal flatus in appliance
Incision with intact chilango/marilee, dressing changed d/t bloody drainage. No active bleeding present
ZACH with SSF
Patient has a gore catheter: Yes
Patient has a central line: No
[2024-08-25 11:25] VITALS: BP 138/82
--- NOTE | 2024-08-25 11:36 | W.PN.ID1 ---
Date of Service
Date of Service: August 25, 2024
Today's Communication
Add micafungin to Zosyn.
Assessment / Plan
# Acute sigmoid diverticulitis perforation with feculent contamination
# Leukocytosis - trending down
# Fever resolved
- 08/23 s/p ex-lap sigmoidectomy, repair of small bowel tear, loop ileostomy
Appreciate colorectal for sending OR cx: E. coli, yeast
- Blood cultures x 2 neg to date
- Continue Zosyn (d2 recount from date of surgery).
- Add Micafungin pending identification of yeast.
- Trend temps/wbc
# Conditions MAP AND CHART MOUNTER
Hypothyroidism
Diverticulitis
Paroxysmal Afib s/p MAZE, LAAE 07/24/24
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
Tricuspid valve insufficiency s/p TV repair 07/24/24
Thyroid cancer s/ resection 1992
Uro lift
Right shoulder tear surgery
Chief Complaint
-: Leukocytosis and Other (Diverticulitis)
Subjective / Review of Systems
No BM yet.
Vital Signs / Physical Exam
Vital Signs
Vital Signs
Temp Pulse Resp BP Pulse Ox
98.4 F 78 16 138/82 97
08/25/24 11:25 08/25/24 11:25 08/25/24 11:25 08/25/24 11:25 08/25/24 11:25
Physical Exam
Constitutional: No Acute Distress
Eyes: Sclera Anicteric
Cardiovascular: Regular Rate and S1/S2
Pulmonary: Clear
Gastrointestinal: Soft, Tender (mild), Non Distended, Decreased Bowel Sounds and Other (ZACH drain: serosanguinous fluid)
Extremities: Negative Edema
Neurological: AO x 3
Objective Data
Lab Data
Lab Results
08/25/24 05:27
08/25/24 05:27
Estimated Creat Clear 86 ml/min 08/25/24 05:27
Total Bilirubin 1.3 mg/dl (0.2-1.3) 08/17/24 06:32
AST 27 U/L (17-59) 08/17/24 06:32
ALT 36 U/L (0-50) 08/17/24 06:32
Alkaline Phosphatase 103 U/L (38-126) 08/17/24 06:32
C-Reactive Protein 89.10 mg/L (0.0-10.00) H 08/23/24 05:18
Most recent labs reviewed.
Micro Results:
08/23/24 15:01 Wound Culture - Preliminary
Abdomen Escherichia coli
Yeast
Gram Stain - Preliminary
08/23/24 09:53 Blood Culture - Preliminary
Blood/Venous No Growth in 48 hours- Final report to follow
08/23/24 09:10 Blood Culture - Preliminary
Blood/Venous No Growth in 48 hours- Final report to follow
08/23/24 15:01 Anaerobic Culture - Pending
Abdomen
08/19/24 14:15 Respiratory Culture - Final
Sputum Usual Respiratory Alexandra
Gram Stain - Final
08/23/24 CT a/p: 1. Findings consistent with severe perforated sigmoid diverticulitis. Severe bowel wall thickening and mesenteric inflammatory change is seen adjacent to the proximal sigmoid colon. Collection of extraluminal air adjacent to the
inflamed portion of the sigmoid colon is consistent with perforation.
2. Large amount of free intraperitoneal air, significantly increased in amount compared to prior CT dated 08/17/2024.
3. Airspace consolidation at the right lung base, which may represent subsegmental atelectasis or pneumonia. Small right pleural effusion.
4. Bowel wall thickening at the gastroesophageal junction. Please correlate for symptoms, and if indicated with upper GI endoscopy.
08/17/24 CT a/p: Findings as above most consistent with severe sigmoid diverticulitis with associated small volume pneumoperitoneum. No discrete abscess formation or drainable collection. Small right groin fluid collection measuring up to 5.4 cm in
diameter as above, most likely postoperative seroma.
[2024-08-25] MEDS: NSS 1000 IV ×2 (12:00→23:49)
--- NOTE | 2024-08-25 13:11 | W.PN.HOSP.TC ---
Today's Communication/Plan
-
Assessment / Plan
Assessment / Plan
NAD
Scleral Anicteric
DMM, NGT
No JVD
CTABL
RRR, S1/S2
Soft, Tenderness along suture line, ND, BS+, ZACH drain with serosang fluid, ostomy without gas/stool
Warm, Dry
AAOx3
Calm
Acute diverticulitis with microperforation
Noted to have fevers and worsening white count therefore repeat CT abdomen pelvis was obtained demonstrating abnormalities with free air in the abdomen secondary to severe perforated sigmoid diverticulitis
S/p ex lap sigmoidectomy with EEA stapled end of stenosis, diverting loop ileostomy 08/19/2024
Remains hemodynamic on antibiotics
Continue IV antibiotics
NPO
NGT to low wal suction for decompression
ADAT per surgery
BPH
Continue Flomax
Hypothyroid
Continue levothyroxine
S/p MVR/TVR maze left atrial appendage exclusion
Outpatient cardiothoracic follow-up
Anticipated Discharge: > 48 hours
Subjective/Interval History
-
Date of Service: August 25, 2024
Seen and examined. No new complaints. No acute overnight events.
Feeling better.
Objective Data
-
Labs:
Laboratory Results
08/25/24
05:27
WBC 14.8 H
Hgb 11.2 L
Hct 33.7 L
Plt Count 238
Sodium 136
Potassium 4.0
Chloride 102
Carbon Dioxide 26
BUN 16
Creatinine 0.9
Glucose 90
Calcium 7.9 L
Vital Signs:
Vital Signs
Temp Pulse Resp BP Pulse Ox
98.4 F 78 16 138/82 97
08/25/24 11:08/25/24 11:25 08/25/24 11:25 08/25/24 11:25 08/25/24 11:25
I&O
08/24/24 08/25/24 08/26/24
06:59 06:59 06:59
Intake Total 100 / 100 1030 / 1030 462.5 / 462.5
Output Total 210 / 210 2089 / 2089 400 / 400
Balance -110 / -110 -1060 / -1060 62.5 / 62.5
[2024-08-25] MEDS: MYCAMINE 105 MG IV (14:27)
[2024-08-25 15:25] VITALS: BP 134/79
[2024-08-25] MEDS: ROXICODONE 5 MG PO ×2 (16:45→21:14)
--- NOTE | 2024-08-25 17:32 | PTCARENOTE ---
pt and are very concerned about his coughing that predates this visit, from post-op TAVR 07/24. They would like to discuss options/ideas with Dr. Prescott. They feel the cough is impeding his healing. Nurse suggested walking (he refused today, did
get to chair) and continued use of IS. TT to Dr. Prescott.
[2024-08-25] MEDS: NEURONTIN 100 MG PO ×2 (17:40→21:14)
[2024-08-25] MEDS: LOVENOX 40 MG SC (17:42)
--- NOTE | 2024-08-25 18:56 | PTCARENOTE ---
encouraging pt to void into urinal, when returned to room, had straight cath'd himself with own cath.
[2024-08-25 19:35] VITALS: BP 134/78
[2024-08-25 23:51] VITALS: BP 135/85
[2024-08-26 03:45] VITALS: BP 154/86
[2024-08-26] MEDS: ZOSYN 50 IV ×4 (04:45→21:03)
[2024-08-26] MEDS: SYNTHROID 100 MCG PO (05:41)
[2024-08-26] MEDS: TORADOL 10 MG IV ×4 (05:41→23:45)
[2024-08-26 05:52] VITALS: BMI 25.8
[2024-08-26 06:29] LABS: Hematocrit 31.1 % (39.0-52.0); Hemoglobin 10.4 g/dL (13.0-18.0); Mean Corp Hgb Conc. 33.4 g/dL (33.0-37.0); Mean Corpuscular Hgb 27.7 pg (27.0-31.0); Mean Corpuscular Volume 82.9 fL (80.0-94.0); Mean Platelet Volume 9.4 fL (7.4-10.4); Platelet Count 253 10^3/uL (130-400); Red Blood Cell Count 3.75 10^6/uL (4.70-6.10); Red Cell Dist. Width 13.7 % (11.5-14.5); White Blood Cell Count 12.5 10^3/uL (4.8-10.8)
[2024-08-26 07:19] LABS: Blood Urea Nitrogen 17 mg/dl (9-20); Calcium 7.7 mg/dl (8.4-10.2); Carbon Dioxide 25 mmol/L (22-30); Chloride 105 mmol/L (98-107); Estimated Creatinine Clearance 86 ml/min; Glucose 87 mg/dl (70-99); Sodium 137 mmol/L (135-145); eGFR > 60.00
[2024-08-26 07:20] VITALS: BP 147/84
[2024-08-26] MEDS: NSS 1000 IV ×2 (08:40→21:00)
[2024-08-26] MEDS: ROXICODONE 5 MG PO ×2 (08:41→17:52)
[2024-08-26] MEDS: NEURONTIN 100 MG PO ×3 (08:41→21:00)
[2024-08-26] MEDS: FLOMAX 0.4 MG PO (08:42)
[2024-08-26] MEDS: PROTONIX IV 40 MG IV ×2 (08:43→20:45)
[2024-08-26] MEDS: NSS (PRESERVATIVE FREE) 10 ML IV ×2 (08:45→20:45)
--- NOTE | 2024-08-26 10:13 | W.PN.GS2 ---
Addendum entered and electronically signed by Danny Monsalve MD 08/26/24 10:45:
Patient seen and examined with surgical SALES WAREHOUSE DRIVER.
Has tolerated NG tube removal overnight. No worsening nausea.
Postoperative pain controlled.
AFVSS
ABD: Mild incisional tenderness. Left sided ZACH with lightening serosanguineous fluid. Midline incision with marilee and chilango, clean, no erythema, minimal drainage.
Right sided loop ileostomy with healthy mucosa and some succus within the ostomy appliance
A/P: POD #3 status post sigmoid/diverting loop ileostomy
Overall doing well postop
Start clear liquid diet
ID following for antibiotic recommendations/management
Encouraged up out of bed to chair and ambulation today
Original Note:
Today's Communication / Plan
-
clear liquids
Assessment / Plan
-
64 yo male with h/o PAF (not on AC), BPH with urinary retention (on flomax with prn CIC), s/p MVR/TVR 07/24/24 admitted for diverticulitis which worsened despite optimized medical management
POD #3 ex lap sigmoidectomy with eea stapled anastomosis, diverting loop ileostomy
Afebrile, VSS
Stoma pink/viable with some liquid stool in appliance
NGT removed on 08/25
H/H drifting downward, acute anemia secondary to hemodilution and expected intraoperative losses. No active bleeding noted
WBC trending down
--Clear liquids
--Analgesics scheduled and prn
--OOB/Ambulate
--Stoma team consulted/following
--Straight cath BID and prn, c/w flomax (home regimen)
--ABX as per ID
--C/W ZACH, follow outputs. Will likely be able to remove prior to d/c
--IVF until good PO intake
--Lovenox sq and SCDs for VTE ppx
Subjective Data
-
Date of Service: August 26, 2024
Patient seen and examined at bedside with Dr. Monsalve. Denies n/v. Pain present but improving. Small amount of hematuria overnight with CIC.
Objective Data
-
Intake and Output
08/25/24 08/26/24 08/27/24
06:59 06:59 06:59
Intake Total 1030 / 1030 2337.5 / 2337.5
Output Total 2089 / 0 1245 / 1245
Balance -1060 / -1060 1092.5 / 1092.5
Intake:
Oral fluids 120 / 120
IV fluids (Total) 750 / 750 1912.5 / 1912.5
IV piggybacks 100 / 100 305 / 305
Amount instilled into GI Tube ( 180 / 180
Total)
Kane Sump 180 / 180
Output:
Liquid stool amount 150 / 150 95 / 95
Ileostomy 150 / 150 95 / 95
Drain Output (Total) 115 / 115 75 / 75
Left Abdomen Davonte-Waldron 115 / 115 75 / 75
Gastrointestinal tube output ( 700 / 700
Total)
Kane Sump 700 / 700
Urine, Gore 1125 / 1125 400 / 400
Straight cath output 675 / 675
Other:
Number of unmeasured liquid
stools
Ileostomy 50
Vital Signs
Temp Pulse Resp BP Pulse Ox
98.7 F 70 18 147/84 98
08/26/24 07:20 08/26/24 07:20 08/26/24 07:20 08/26/24 07:20 08/26/24 07:20
Lab Results
08/26/24 05:25
08/26/24 05:25
Calcium 7.7 mg/dl (8.4-10.2) L 08/26/24 05:25
Magnesium 2.0 mg/dl (1.6-2.3) 08/24/24 06:49
Total Bilirubin 1.3 mg/dl (0.2-1.3) 08/17/24 06:32
AST 27 U/L (17-59) 08/17/24 06:32
ALT 36 U/L (0-50) 08/17/24 06:32
Alkaline Phosphatase 103 U/L (38-126) 08/17/24 06:32
Total Protein 7.4 g/dl (6.3-8.2) 08/17/24 06:32
Albumin 3.7 g/dl (3.5-5.0) 08/17/24 06:32
Physical Exam
-
NAD
ABD soft, expected tenderness, ND
Stoma to right abd pink/viable with red rubber bridge, liquid stool/minimal flatus in appliance
Incision with intact chilango/marilee, dressing changed d/t bloody drainage. No active bleeding present
Right groin cannulation site well approximated and healing well
ZACH with SSF
Patient has a gore catheter: No
Patient has a central line: No
--- NOTE | 2024-08-26 10:25 | W.PN.ID1 ---
Date of Service
Date of Service: August 26, 2024
Today's Communication
Continue Zosyn, Micafungin.
Assessment / Plan
# Acute sigmoid diverticulitis perforation with feculent contamination
# Leukocytosis - trending down
# Fever resolved
- 08/23 s/p ex-lap sigmoidectomy, repair of small bowel tear, loop ileostomy
Appreciate colorectal for sending OR cx: E. coli, yeast
- Blood cultures x 2 neg to date
- Continue Zosyn (d3 recount from date of surgery).
- Continue Micafungin (d2)pending identification of yeast.
- Trend wbc
# Conditions STAFF INTERNIST OFFICE BASED ONLY
Hypothyroidism
Diverticulitis
Paroxysmal Afib s/p MAZE, LAAE 07/24/24
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
Tricuspid valve insufficiency s/p TV repair 07/24/24
Thyroid cancer s/ resection 1992
Uro lift
Right shoulder tear surgery
Chief Complaint
-: Leukocytosis and Other (Diverticulitis)
Subjective / Review of Systems
Comfortable. NGT out
Vital Signs / Physical Exam
Vital Signs
Vital Signs
Temp Pulse Resp BP Pulse Ox
98.7 F 70 18 147/84 98
08/26/24 07:20 08/26/24 07:20 08/26/24 07:20 08/26/24 07:20 08/26/24 07:20
Physical Exam
Constitutional: No Acute Distress
Eyes: Sclera Anicteric
Cardiovascular: Regular Rate and S1/S2
Pulmonary: Clear
Gastrointestinal: Soft, Non Tender, Non Distended, Decreased Bowel Sounds and Other (ZACH drain: serosanguinous fluid)
Extremities: Negative Edema
Neurological: AO x 3
Objective Data
Lab Data
Lab Results
08/26/24 05:25
08/26/24 05:25
Estimated Creat Clear 86 ml/min 08/26/24 05:25
Total Bilirubin 1.3 mg/dl (0.2-1.3) 08/17/24 06:32
AST 27 U/L (17-59) 08/17/24 06:32
ALT 36 U/L (0-50) 08/17/24 06:32
Alkaline Phosphatase 103 U/L (38-126) 08/17/24 06:32
C-Reactive Protein 89.10 mg/L (0.0-10.00) H 08/23/24 05:18
Most recent labs reviewed.
Micro Results:
08/23/24 09:53 Blood Culture - Preliminary
Blood/Venous No Growth in 72 hours- Final report to follow
08/23/24 09:10 Blood Culture - Preliminary
Blood/Venous No Growth in 72 hours- Final report to follow
08/23/24 15:01 Anaerobic Culture - Preliminary
Abdomen Culture pending. Anaerobic cultures are examined after 3
days incubation. Additional information to follow.
08/23/24 15:01 Wound Culture - Preliminary
Abdomen Escherichia coli
Yeast
Gram Stain - Preliminary
08/19/24 14:15 Respiratory Culture - Final
Sputum Usual Respiratory Alexandra
Gram Stain - Final
08/23/24 CT a/p: 1. Findings consistent with severe perforated sigmoid diverticulitis. Severe bowel wall thickening and mesenteric inflammatory change is seen adjacent to the proximal sigmoid colon. Collection of extraluminal air adjacent to the
inflamed portion of the sigmoid colon is consistent with perforation.
2. Large amount of free intraperitoneal air, significantly increased in amount compared to prior CT dated 08/17/2024.
3. Airspace consolidation at the right lung base, which may represent subsegmental atelectasis or pneumonia. Small right pleural effusion.
4. Bowel wall thickening at the gastroesophageal junction. Please correlate for symptoms, and if indicated with upper GI endoscopy.
08/17/24 CT a/p: Findings as above most consistent with severe sigmoid diverticulitis with associated small volume pneumoperitoneum. No discrete abscess formation or drainable collection. Small right groin fluid collection measuring up to 5.4 cm in
diameter as above, most likely postoperative seroma.
--- NOTE | 2024-08-26 10:39 | W.PN.HOSP.TC ---
Today's Communication/Plan
-
CLD, ADAT per Surgery
Zosyn and micafungin
ID and surgery follow up
Assessment / Plan
Assessment / Plan
NAD
Scleral Anicteric
MMM
No JVD
CTABL
RRR, S1/S2
Soft, Tenderness along suture line, ND, BS+, ZACH drain with serosang fluid, ostomy without gas/stool
Warm, Dry
AAOx3
Calm
Acute diverticulitis with microperforation
Noted to have fevers and worsening white count therefore repeat CT abdomen pelvis was obtained demonstrating abnormalities with free air in the abdomen secondary to severe perforated sigmoid diverticulitis
S/p ex lap sigmoidectomy with EEA stapled end of stenosis, diverting loop ileostomy 08/19/2024
Remains hemodynamic on antibiotics
Continue IV antibiotics and antifungal per ID
CLD, ADAT per Surgery
BPH
Continue Flomax
Hypothyroid
Continue levothyroxine
S/p MVR/TVR maze left atrial appendage exclusion
Outpatient cardiothoracic follow-up
Anticipated Discharge: > 48 hours
Subjective/Interval History
-
Date of Service: August 26, 2024
seen and exmained. no new complaints. no acute overnight events
feeling better
ngt out
tolerated water and ice chips last night
surgery adat to cld this AM
Objective Data
-
Labs:
Laboratory Results
08/26/24
05:25
WBC 12.5 H
Hgb 10.4 L
Hct 31.1 L
Plt Count 253
Sodium 137
Potassium 4.0
Chloride 105
Carbon Dioxide 25
BUN 17
Creatinine 0.9
Glucose 87
Calcium 7.7 L
Vital Signs:
Vital Signs
Temp Pulse Resp BP Pulse Ox
98.7 F 70 18 147/84 98
08/26/24 07:20 08/26/24 07:20 08/26/24 07:20 08/26/24 07:20 08/26/24 07:20
I&O
08/25/24 08/26/24 08/27/24
06:59 06:59 06:59
Intake Total 1030 / 1030 2337.5 / 2337.5
Output Total 2089 1245 / 1245
Balance -1060 / -1060 1092.5 / 1092.5
[2024-08-26 11:15] VITALS: BP 159/86
[2024-08-26] MEDS: MYCAMINE 105 MG IV (13:58)
[2024-08-26 15:35] VITALS: BP 159/87
[2024-08-26] MEDS: LOVENOX 40 MG SC (17:42)
[2024-08-26 19:40] VITALS: BP 128/81
[2024-08-26 23:10] VITALS: BP 158/91
[2024-08-27] MEDS: ZOSYN 50 IV ×4 (03:26→21:13)
[2024-08-27] MEDS: SYNTHROID 100 MCG PO (05:23)
[2024-08-27] MEDS: TORADOL 10 MG IV ×4 (05:23→23:08)
[2024-08-27] MEDS: NSS 1000 IV ×2 (05:25→17:32)
[2024-08-27 06:00] VITALS: BMI 25.9
[2024-08-27 07:43] VITALS: BP 148/87
[2024-08-27 08:01] LABS: Hematocrit 30.9 % (39.0-52.0); Hemoglobin 10.3 g/dL (13.0-18.0); Mean Corp Hgb Conc. 33.3 g/dL (33.0-37.0); Mean Corpuscular Hgb 27.2 pg (27.0-31.0); Mean Corpuscular Volume 81.7 fL (80.0-94.0); Mean Platelet Volume 9.2 fL (7.4-10.4); Platelet Count 281 10^3/uL (130-400); Red Blood Cell Count 3.78 10^6/uL (4.70-6.10); White Blood Cell Count 13.1 10^3/uL (4.8-10.8)
[2024-08-27] MEDS: FLOMAX 0.4 MG PO (08:06)
[2024-08-27] MEDS: NEURONTIN 100 MG PO ×3 (08:06→21:15)
[2024-08-27] MEDS: PROTONIX IV 40 MG IV ×2 (08:07→20:37)
[2024-08-27] MEDS: NSS (PRESERVATIVE FREE) 10 ML IV ×2 (08:07→20:37)
[2024-08-27 09:05] LABS: Blood Urea Nitrogen 12 mg/dl (9-20); Calcium 7.9 mg/dl (8.4-10.2); Carbon Dioxide 24 mmol/L (22-30); Chloride 108 mmol/L (98-107); Estimated Creatinine Clearance 86 ml/min; Glucose 101 mg/dl (70-99); Potassium 4.2 mmol/L (3.5-5.1); Sodium 138 mmol/L (135-145); eGFR > 60.00
--- NOTE | 2024-08-27 10:01 | W.PN.HOSP.TC ---
Addendum entered and electronically signed by Jc Sandhu MD 08/27/24 17:46:
Seen and examined by me independently in collaboration with the medical billing service.
Lab data and imaging data reviewed.
Addendum as below :
Patient currently advance to solid diet and depending on tolerance will Plan on discharge.
Original Note:
Today's Communication/Plan
-
Low residue diet
Continue Zosyn and micafungin
Plan for ZACH drain by colorectal surgery prior to discharge
Assessment / Plan
Assessment / Plan
# Acute diverticulitis with microperforation
# Sepsis secondary to diverticulitis perforation
- POD #4
- Hemodynamically stable. Not febrile, pain improving, tolerated clear liquid diet.
- Continue tylenol, oxy and dilaudid as needed for pain
- Status post exploratory laparotomy, sigmoidectomy and ileostomy.
- Colorectal surgery following, advanced diet to low residue
- ZACH drain to be removed before discharge
- Intra-abdominal culture: E. coli, Enterococcus avium, yeast
- ID following, continue IV Zosyn (day 4 postop), and now micafungin added
# Leukocytosis
- Likely reactive, secondary to surgery
- Continue antibiotics
- Continue to trend
# Elevated troponin
- Downtrending
- EKG without any acute ST-T changes
- Not symptomatic
- Follow for any chest pain
# Recent UTI
- Held Levaquin
# History of BPH s/p UroLift
- Continue tamsulosin
- Straight cath prn as needed
# Recent MVR/TVR/maze/left atrial appendage exclusion
- Not symptomatic
- Right groin open wound at prior cannulation site.
- Wound care following
Full code
DVT prophylaxis heparin subcu
Anticipated Discharge: 24 - 48 hours
Subjective/Interval History
-
Date of Service: August 27, 2024
Objective Data
-
Labs:
Laboratory Results
08/27/24
07:17
WBC 13.1 H
Hgb 10.3 L
Hct 30.9 L
Plt Count 281
Sodium 138
Potassium 4.2
Chloride 108 H
Carbon Dioxide 24
BUN 12
Creatinine 0.9
Glucose 101 H
Calcium 7.9 L
Vital Signs:
Vital Signs
Temp Pulse Resp BP Pulse Ox
98.2 F 60 16 148/87 98
08/27/24 07:43 08/27/24 07:43 08/27/24 07:43 08/27/24 07:43 08/27/24 07:43
I&O
08/26/24 08/27/24 08/28/24
06:59 06:59 06:59
Intake Total 2337.5 / 2337.5 3315 / 3315 50 / 50
Output Total 1245 / 1245 1984 / 1984
Balance 1092.5 / 1092.5 1330 / 1330 50 / 50
Review of Systems
-
History Source: Patient
Constitutional: Reports No Symptoms
EENT: Reports No Symptoms Reported
Respiratory: Reports No Symptoms
Cardiac: Reports No Symptoms
Abdomen/GI: Reports Abdominal Pain; Denies Nausea or Vomiting
Genitourinary: Reports No Symptoms
Musculoskeletal: Reports No Symptoms
Skin: Reports No Symptoms
Neuro: Reports No Symptoms
Endocrine: Reports No Symptoms
Hematologic / Lymphatic: Reports No Symptoms
Allergy / Immunology: Reports No Symptoms
Physical Exam
-
General: Well Developed, Well Nourished, No Apparent Distress and Comfortable
HEENT: Normocephalic
Respiratory: Clear to Auscultation
Cardiac: Regular Rhythm and S1/S2
GI: Soft, Normal Bowel Sounds, Tender, Ostomy and Other (drain in place)
Rectal: Brown
Genito-urinary: No Costovertebral Tender
Musculoskeletal: No Clubbing, No Cyanosis and No Edema
Skin: Warm
Neuro: Awake, Alert, Oriented and AO x 3
Psych: Calm
[2024-08-27 11:00] VITALS: BP 142/82
--- NOTE | 2024-08-27 11:18 | W.PN.ID1 ---
Date of Service
Date of Service: August 27, 2024
Today's Communication
Continue Zosyn, Micafungin.
Assessment / Plan
# Acute sigmoid diverticulitis perforation with feculent contamination
# Leukocytosis - overall trending down
# Fever resolved
- 08/23 s/p ex-lap sigmoidectomy, repair of small bowel tear, loop ileostomy
Appreciate colorectal for sending OR cx: E. coli, Enterococcus avum (amp-sensitive) yeast
- Blood cultures x 2 neg to date
- Continue Zosyn (d4 recount from date of surgery).
- Continue Micafungin (d3). I spoke to micro to identify the yeast
- Trend wbc
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
Hypothyroidism
Diverticulitis
Paroxysmal Afib s/p MAZE, LAAE 07/24/24
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
Tricuspid valve insufficiency s/p TV repair 07/24/24
Thyroid cancer s/ resection 1992
Uro lift
Right shoulder tear surgery
Chief Complaint
-: Leukocytosis and Other (Diverticulitis)
Subjective / Review of Systems
Advancing his diet. No complaints.
Vital Signs / Physical Exam
Vital Signs
Vital Signs
Temp Pulse Resp BP Pulse Ox
98.2 F 60 16 148/87 98
08/27/24 07:43 08/27/24 07:43 08/27/24 07:43 08/27/24 07:43 08/27/24 08:00
Physical Exam
Constitutional: No Acute Distress
Eyes: Sclera Anicteric
Cardiovascular: Regular Rate and S1/S2
Pulmonary: Clear
Gastrointestinal: Soft, Non Tender, Non Distended and Other (ZACH drain: serosanguinous fluid; ostomy with dark brown stool)
Extremities: Negative Edema
Neurological: AO x 3
Objective Data
Lab Data
Lab Results
08/27/24 07:17
08/27/24 07:17
Estimated Creat Clear 86 ml/min 08/27/24 07:17
Total Bilirubin 1.3 mg/dl (0.2-1.3) 08/17/24 06:32
AST 27 U/L (17-59) 08/17/24 06:32
ALT 36 U/L (0-50) 08/17/24 06:32
Alkaline Phosphatase 103 U/L (38-126) 08/17/24 06:32
C-Reactive Protein 89.10 mg/L (0.0-10.00) H 08/23/24 05:18
Most recent labs reviewed.
Micro Results:
08/23/24 09:53 Blood Culture - Preliminary
Blood/Venous No Growth in 4 days- Final report to follow
08/23/24 15:01 Wound Culture - Preliminary
Abdomen Escherichia coli
Enterococcus avium
Yeast
Gram Stain - Preliminary
08/23/24 15:01 Anaerobic Culture - Preliminary
Abdomen Culture pending. Anaerobic cultures are examined after 3
days incubation. Additional information to follow.
08/23/24 09:10 Blood Culture - Preliminary
Blood/Venous No Growth in 4 days- Final report to follow
08/19/24 14:15 Respiratory Culture - Final
Sputum Usual Respiratory Alexandra
Gram Stain - Final
08/23/24 CT a/p: 1. Findings consistent with severe perforated sigmoid diverticulitis. Severe bowel wall thickening and mesenteric inflammatory change is seen adjacent to the proximal sigmoid colon. Collection of extraluminal air adjacent to the
inflamed portion of the sigmoid colon is consistent with perforation.
2. Large amount of free intraperitoneal air, significantly increased in amount compared to prior CT dated 08/17/2024.
3. Airspace consolidation at the right lung base, which may represent subsegmental atelectasis or pneumonia. Small right pleural effusion.
4. Bowel wall thickening at the gastroesophageal junction. Please correlate for symptoms, and if indicated with upper GI endoscopy.
08/17/24 CT a/p: Findings as above most consistent with severe sigmoid diverticulitis with associated small volume pneumoperitoneum. No discrete abscess formation or drainable collection. Small right groin fluid collection measuring up to 5.4 cm in
diameter as above, most likely postoperative seroma.
--- NOTE | 2024-08-27 12:58 | W.PN.CRS1 ---
Today's Communication / Plan
-
Low residue diet
Assessment/Plan
-
64-year-old male with PMH of paroxysmal A-fib (states this has resolved, not on any AC), BPH, hypothyroidism (thyroid cancer s/p thyroid surgery), GERD, diverticulitis (first episode in 2018, no procedures needed, no episodes since), valvular
disease s/p MVR/TVR on 07/24/2024 at [place] (postoperatively, course was complicated by bronchitis for a few weeks and recent UTI, currently taking Levaquin) who presents with acute abdominal pain x1 day. His last colonoscopy was 4 or so years
ago with [facility]. The report is not available to me, but states this was normal and recommended to repeat in 10 years. In the ED, his WBC was 21.7, troponin was 0.069. A CT scan was done showing severe sigmoid diverticulitis associated with
flecks of free air extending up to the right upper quadrant, groin seroma and stable kidney lesion. Initially, treated non-operatively and he had improved until 08/23, spiked a fever and repeat CT showed worsening free air
POD 4 ex lap, sigmoidectomy with EEA stapled anastomosis, diverting loop ileostomy
AFVSS
WBC 13.1 (12.5), hgb 10.3 (10.4)
� Advance diet to low residue
� Continue pain control with Toradol, Dilaudid as needed
� Continue IV Zosyn; appreciate ID
� Continue SQH for DVT PPx
� Voiding and occasionally straight cathing
� Okay for OOB/encourage IS
- ZACH drain will be removed prior to discharge
- Continue stoma bridge
� Appreciate hospitalist
Subjective Data
Subjective Data
Date of Service: August 27, 2024
Patient states he is feeling well today. He denies nausea or vomiting. He is urinating on his own and also needs a straight cath intermittently.
Objective Data
-
Vital Signs
Temp Pulse Resp BP Pulse Ox
98.1 F 60 16 142/82 98
08/27/24 11:00 08/27/24 11:00 08/27/24 11:00 08/27/24 11:00 08/27/24 11:00
Intake & Output
08/26/24 08/27/24 08/28/24
06:59 06:59 06:59
Intake Total 2337.5 / 2337.5 3315 / 3315 50 / 50
Output Total 1245 / 1245 1984 / 1984 50 / 50
Balance 1092.5 / 1092.5 1330 / 1330 0 / 0
Intake:
Oral fluids 120 / 120 660 / 660
IV fluids (Total) 1912.5 / 1912.5 2400 / 2400
IV piggybacks 305 / 305 255 / 255 50 / 50
Output:
Liquid stool amount 95 / 95 150 / 150
Ileostomy 95 / 95 150 / 150
Drain Output (Total) 75 / 75 60 / 60 50 / 50
Left Abdomen Davonte-Waldron 75 / 75 60 / 60 50 / 50
Urine, Saleem 400 / 400 1775 / 1775
Straight cath output 675 / 675
Other:
Number of unmeasured liquid
stools
Ileostomy 50
Lab Results
08/27/24 07:17
08/27/24 07:17
Physical Exam
-
General: No Acute Distress and AOx3
Abdomen: Soft, Non Distended, Non Tender and Other (Ileostomy warm and pink with function. ZACH drain serosanguineous.)
Skin: Warm and Dry
Incision: Other (Some chilango are still in place. Several removed. Dressing replaced.)
[2024-08-27] MEDS: MYCAMINE 105 MG IV (14:00)
--- NOTE | 2024-08-27 14:01 | WOUNDNOTE ---
Toby Barrier # [id number] and Pouch # [id number]. Use [place] seal PRN
Call supply company (list in folder provided) for monthly Ostomy supplies after discharge (ask VN to order supplies while on service).
Follow up with surgeon.
Call [facility] RN nurse for ostomy pouching concerns or leakage problems [phone] or [phone] or [phone].
[2024-08-27] MEDS: ROXICODONE 5 MG PO (14:10)
--- NOTE | 2024-08-27 14:16 | WOUNDNOTE ---
[facility] RN note: Patient s/p ostomy surgery 08/24
See H&P for complete history.
Ostomy location and type: sigmoidectomy with EEA stapled anastomosis, diverting loop ileostomy
Instructed patient ostomy pouch emptying and changing appliance using [place] wafer # [id number]
Toby pouch # [id number]. Loop ostomy is pink and budded, no drainage noted from appliance. Ostomy draining small about of liquid stool. Patient practiced emptying pouch and asked appropriate questions. Reviewed contents of colostomy folder and
ordering of supplies etc. Ostomy supplies ordered from [facility] and at bedside.
With patients permission, a [place] Secure Start Kit was ordered to home.
Note to case management: VN services recommended for ostomy teaching.
Nursing care plan updated, will follow as needed.
--- NOTE | 2024-08-27 15:04 | CM ---
Addendum entered by Natividad Dodd RN 08/27/24 16:18:
CM spoke with the patient's spouse at the bedside. Updated on plan for home with VN.
Original Note:
Reviewed the chart notes and spoke with the patient and his son at the bedside. Patient's diet upgraded to low residue. Per notes, ZACH drain to be removed prior to discharge. Patient ambulating ad law. Patient interested in VN services.
Discussed VN agencies. Referral VN sent via [facility]. CM continues to be available to patient/family and is monitoring medical plan for needs at discharge.
Plan: Discharge to home when medically stable with VN service.
[2024-08-27 15:28] VITALS: BP 145/83
[2024-08-27] MEDS: LOVENOX 40 MG SC (17:34)
[2024-08-27 20:44] VITALS: BP 118/75
[2024-08-27 23:28] VITALS: BP 132/78
[2024-08-28] MEDS: ROXICODONE 5 MG PO ×3 (00:05→23:20)
[2024-08-28 03:00] VITALS: BP 161/86
[2024-08-28] MEDS: ZOSYN 50 IV ×4 (04:38→22:00)
[2024-08-28] MEDS: TORADOL 10 MG IV ×2 (05:33→12:12)
[2024-08-28] MEDS: SYNTHROID 100 MCG PO (05:33)
[2024-08-28 06:00] VITALS: BMI 26.1
[2024-08-28 07:29] VITALS: BP 143/86
[2024-08-28 07:47] LABS: Hematocrit 32.1 % (39.0-52.0); Hemoglobin 10.6 g/dL (13.0-18.0); Mean Corpuscular Hgb 27.2 pg (27.0-31.0); Mean Corpuscular Volume 82.3 fL (80.0-94.0); Mean Platelet Volume 9.2 fL (7.4-10.4); Platelet Count 330 10^3/uL (130-400); Red Cell Dist. Width 13.9 % (11.5-14.5); White Blood Cell Count 13.5 10^3/uL (4.8-10.8)
[2024-08-28 08:18] LABS: Blood Urea Nitrogen 10 mg/dl (9-20); Calcium 8.2 mg/dl (8.4-10.2); Carbon Dioxide 23 mmol/L (22-30); Chloride 108 mmol/L (98-107); Estimated Creatinine Clearance 96 ml/min; Glucose 106 mg/dl (70-99); Sodium 137 mmol/L (135-145); eGFR > 60.00
--- NOTE | 2024-08-28 08:33 | W.PN.HOSP.TC ---
Addendum entered and electronically signed by Jc Sandhu MD 08/28/24 13:40:
Seen and examined by me independently in collaboration with the certified ophthalmic medical technician.
Lab data and imaging data reviewed.
Addendum as below :
Patient tolerating diet without abdominal pain nausea vomiting. No fevers.
Today he passed some gas rectally. Then he had a liquid stools more like bright red blood. Painless. No dizziness.
Abdomen soft. Ileostomy noted. ZACH drain noted. H&H this morning was stable.
CT of the abdomen pelvis noted about the small abscess of the ZACH drain site intra-abdominal leak.
Discussed with colorectal who will take a look at the CT scan. With regards to rectal output will follow clinically for any more and follow HH .
OR fluid cx report noted-cw abx /antifungal per ID.
Discussed with RN
Discussed with at bedside
Total time spent on today's encounter was 52 minutes which included time spent in counseling the patient/family regarding diagnosis and treatment plan as listed above, goals of care, and symptom management. Case was discussed with nursing staff,
specialists, and care coordinators/case management. All labs and imaging personally reviewed by me. Remainder the time spent in detailed review of previous records, lab data, imaging, and other medical provider documentation.
Original Note:
Today's Communication/Plan
-
Continue low residue diet
Colorectal surgery following, appreciate input for management of developing abscess reported on CT scan
Continue zosyn and micafungin
Assessment / Plan
Assessment / Plan
# Acute diverticulitis with microperforation
# Sepsis secondary to diverticulitis perforation
- POD #5
- Hemodynamically stable. Not febrile, pain improving, tolerated diet, no change on exam.
- Continue tylenol, oxy and dilaudid as needed for pain
- Status post exploratory laparotomy, sigmoidectomy and ileostomy.
- Colorectal surgery following, c/w low residue diet, concerned about uptrend of white count, ordered abd/pelvis CT with IV/oral contrast to r/o intra-abdominal process:
Interval sigmoidectomy and diverting loop ileostomy. No evidence for a postoperative contrast leak. Improving pneumoperitoneum compared to the previous CT. Possible small developing abscess in the anterior lower abdomen with a pocket of
rim-enhancing fluid that measures 3.9 x 0.9 x 3.0 cm.
- Appreciate colorectal surgery input for further management of developing abscess
- ZACH drain to be removed before discharge
- Intra-abdominal culture: E. coli, Enterococcus avium, yeast (pathogen 1 & 2 sensitive to zosyn)
- ID following, continue IV Zosyn (day 5 postop) and micafungin
# Leukocytosis
- Likely reactive, secondary to surgery
- Continue antibiotics
- Continue to trend
- Slowly uptrending for the past 3 days
- Colorectal surgery ordered abd/pelvis CT with IV/oral contrast to r/o intra-abdominal process
# Elevated troponin
- Downtrending
- EKG without any acute ST-T changes
- Not symptomatic
- Follow for any chest pain
# Recent UTI
- Held Levaquin
# History of BPH s/p UroLift
- Continue tamsulosin
- Straight cath prn as needed
# Recent MVR/TVR/maze/left atrial appendage exclusion
- Not symptomatic
- Right groin open wound at prior cannulation site.
- Wound care following
Full code
DVT prophylaxis lovenox
Anticipated Discharge: 24 - 48 hours
Subjective/Interval History
-
Date of Service: August 28, 2024
Objective Data
-
Labs:
Laboratory Results
08/28/24
07:31
WBC 13.5 H
Hgb 10.6 L
Hct 32.1 L
Plt Count 330
Sodium 137
Potassium 4.0
Chloride 108 H
Carbon Dioxide 23
BUN 10
Creatinine 0.8
Glucose 106 H
Calcium 8.2 L
Vital Signs:
Vital Signs
Temp Pulse Resp BP Pulse Ox
98.3 F 59 16 143/86 97
08/28/24 07:29 08/28/24 07:29 08/28/24 07:29 08/28/24 07:29 08/28/24 07:29
I&O
08/27/24 08/28/24 08/29/24
06:59 06:59 06:59
Intake Total 3315 / 3315 2145 / 2145
Output Total 1984 390 / 390
Balance 1330 / 1330 1755 / 1755
Review of Systems
-
History Source: Patient
Constitutional: Reports No Symptoms
EENT: Reports No Symptoms Reported
Respiratory: Reports No Symptoms
Cardiac: Reports No Symptoms
Abdomen/GI: Reports No Symptoms
Breast: Reports No Symptoms
Genitourinary: Reports No Symptoms
Musculoskeletal: Reports No Symptoms
Skin: Reports No Symptoms
Neuro: Reports No Symptoms
Endocrine: Reports No Symptoms
Hematologic / Lymphatic: Reports No Symptoms
Allergy / Immunology: Reports No Symptoms
Physical Exam
-
General: Well Developed, Well Nourished, No Apparent Distress and Comfortable
HEENT: Normocephalic
Respiratory: Clear to Auscultation
Cardiac: Regular Rhythm and S1/S2
GI: Soft, Nondistended, Normal Bowel Sounds and Tender
Musculoskeletal: No Clubbing, No Cyanosis and No Edema
Skin: Warm
Neuro: Awake, Alert, Oriented and AO x 3
Psych: Calm
--- NOTE | 2024-08-28 08:39 | W.PN.CRS1 ---
Today's Communication / Plan
-
As below
Assessment/Plan
-
64-year-old male with PMH of paroxysmal A-fib (states this has resolved, not on any AC), BPH, hypothyroidism (thyroid cancer s/p thyroid surgery), GERD, diverticulitis (first episode in 2018, no procedures needed, no episodes since), valvular
disease s/p MVR/TVR on 07/24/2024 at [place] (postoperatively, course was complicated by bronchitis for a few weeks and recent UTI, currently taking Levaquin) who presents with acute abdominal pain x1 day. His last colonoscopy was 4 or so years
ago with [facility]. The report is not available to me, but states this was normal and recommended to repeat in 10 years. In the ED, his WBC was 21.7, troponin was 0.069. A CT scan was done showing severe sigmoid diverticulitis associated with
flecks of free air extending up to the right upper quadrant, groin seroma and stable kidney lesion. Initially, treated non-operatively and he had improved until 08/23, spiked a fever and repeat CT showed worsening free air
POD 5 ex lap, sigmoidectomy with EEA stapled anastomosis, diverting loop ileostomy
AFVSS
WBC 13.5 from 13.1, Hb 10.6 from 10.3, CR 0.8
�Elevated leukocytosis; will obtain CT with p.o. and IV contrast to rule out intra-abdominal process
� Continue low residue
� Continue pain control with Toradol, Dilaudid as needed
� Continue IV Zosyn and micafungin; appreciate ID
� Continue SQH for DVT PPx
� Straight cathing as needed; reached out to Dr. Rivera for any additional recommendations
� Okay for OOB/encourage IS
� Appreciate hospitalist
Subjective Data
Subjective Data
Date of Service: August 28, 2024
No overnight events.
Pain controlled.
Denies nausea/vomiting. Tolerating diet.
+ Ostomy function +voiding (intermittently straight cathing)
Pt is OOB.
Objective Data
-
Vital Signs
Temp Pulse Resp BP Pulse Ox
98.3 F 59 16 143/86 97
08/28/24 07:29 08/28/24 07:29 08/28/24 07:29 08/28/24 07:29 08/28/24 07:29
Intake & Output
08/27/24 08/28/24 08/29/24
06:59 06:59 06:59
Intake Total 3315 / 3315 2145 / 2145
Output Total 1984 / 1984 390 / 390
Balance 1330 / 1330 1755 / 1755
Intake:
Oral fluids 660 / 660 240 / 240
IV fluids (Total) 2400 / 2400 1600 / 1600
IV piggybacks 255 / 255 305 / 305
Output:
Liquid stool amount 150 / 150 100 / 100
Ileostomy 150 / 150 100 / 100
Drain Output (Total) 60 / 60 140 / 140
Left Abdomen Davonte-Waldron 60 / 60 140 / 140
Urine, Saleem 1775 / 1775
Straight cath output 150 / 150
Lab Results
08/28/24 07:31
08/28/24 07:31
Physical Exam
-
General: No Acute Distress and AOx3
HEENT: Grossly Normal
Abdomen: Soft, Non Distended, Tender (Appropriately tender near midline incision), No Guarding, No Rebound and Other (ZACH-140 mL serosanguineous, ostomy pink and productive of stool, midline incision with intermittent marilee-remainder of Telfa chilango
removed, no surrounding erythema or purulent drainage)
Skin: Warm and Dry
Wound: No Signs of Infection and No Skin Erythema
[2024-08-28] MEDS: NSS (PRESERVATIVE FREE) 10 ML IV ×2 (08:45→20:08)
[2024-08-28] MEDS: FLOMAX 0.4 MG PO (08:45)
[2024-08-28] MEDS: NEURONTIN 100 MG PO ×3 (08:45→22:00)
[2024-08-28] MEDS: PROTONIX IV 40 MG IV ×2 (08:46→20:08)
[2024-08-28] MEDS: OMNIPAQUE 50 ML PO (09:11)
--- NOTE | 2024-08-28 10:57 | CM ---
Reviewed the chart notes and spoke with the patient at the bedside. Informed patient [facility] not in network. Referral to [facility] sent and accepted. Patient in agreement with [facility]. CM continues to be available to patient/family and is
monitoring medical plan for needs at discharge.
Plan: Discharge to home when medically stable with [facility] services.
[facility]
--- NOTE | 2024-08-28 13:12 | W.PN.ID1 ---
Date of Service
Date of Service: August 28, 2024
Today's Communication
Continue current abx's.
Assessment / Plan
# Acute sigmoid diverticulitis perforation with feculent contamination
# Leukocytosis - stable
# Fever resolved
- 08/23 s/p ex-lap sigmoidectomy, repair of small bowel tear, loop ileostomy
Appreciate colorectal for sending OR cx: E. coli, Enterococcus avum (amp-sensitive) yeast
- Blood cultures x 2 neg to date
- Continue Zosyn (d5 recount from date of surgery).
- Continue Micafungin (d4) pending identification of the yeast
- Trend wbc
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
Hypothyroidism
Diverticulitis
Paroxysmal Afib s/p MAZE, LAAE 07/24/24
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
Tricuspid valve insufficiency s/p TV repair 07/24/24
Thyroid cancer s/ resection 1992
Uro lift
Right shoulder tear surgery
Chief Complaint
-: Leukocytosis and Other (Diverticulitis)
Subjective / Review of Systems
No new complaints.
Vital Signs / Physical Exam
Vital Signs
Vital Signs
Temp Pulse Resp BP Pulse Ox
98.3 F 59 16 143/86 97
08/28/24 07:29 08/28/24 07:29 08/28/24 07:29 08/28/24 07:29 08/28/24 07:29
Physical Exam
Constitutional: No Acute Distress
Eyes: Sclera Anicteric
Cardiovascular: Regular Rate and S1/S2
Pulmonary: Clear
Gastrointestinal: Soft, Non Tender, Non Distended and Other (ZACH drain: serosanguinous fluid; ostomy with dark brown stool)
Extremities: Negative Edema
Neurological: AO x 3
Objective Data
Lab Data
Lab Results
08/28/24 07:31
08/28/24 07:31
Estimated Creat Clear 96 ml/min 08/28/24 07:31
Total Bilirubin 1.3 mg/dl (0.2-1.3) 08/17/24 06:32
AST 27 U/L (17-59) 08/17/24 06:32
ALT 36 U/L (0-50) 08/17/24 06:32
Alkaline Phosphatase 103 U/L (38-126) 08/17/24 06:32
C-Reactive Protein 89.10 mg/L (0.0-10.00) H 08/23/24 05:18
Most recent labs reviewed.
Micro Results:
08/23/24 15:01 Anaerobic Culture - Preliminary
Abdomen Culture pending. Anaerobic cultures are examined after 3
days incubation. Additional information to follow.
08/23/24 09:53 Blood Culture - Final
Blood/Venous No Growth - Final Report
08/23/24 09:10 Blood Culture - Final
Blood/Venous No Growth - Final Report
08/23/24 15:01 Wound Culture - Preliminary
Abdomen Escherichia coli
Enterococcus avium
Yeast
Gram Stain - Preliminary
08/19/24 14:15 Respiratory Culture - Final
Sputum Usual Respiratory Alexandra
Gram Stain - Final
08/28/24 CT a/p: Interval sigmoidectomy and diverting loop ileostomy. No evidence for a postoperative contrast leak. Improving pneumoperitoneum compared to the previous CT. Possible small developing abscess in the anterior lower abdomen with a pocket
of rim-enhancing fluid that measures 3.9 x 0.9 x 3.0 cm.
08/23/24 CT a/p: 1. Findings consistent with severe perforated sigmoid diverticulitis. Severe bowel wall thickening and mesenteric inflammatory change is seen adjacent to the proximal sigmoid colon. Collection of extraluminal air adjacent to the
inflamed portion of the sigmoid colon is consistent with perforation.
2. Large amount of free intraperitoneal air, significantly increased in amount compared to prior CT dated 08/17/2024.
3. Airspace consolidation at the right lung base, which may represent subsegmental atelectasis or pneumonia. Small right pleural effusion.
4. Bowel wall thickening at the gastroesophageal junction. Please correlate for symptoms, and if indicated with upper GI endoscopy.
08/17/24 CT a/p: Findings as above most consistent with severe sigmoid diverticulitis with associated small volume pneumoperitoneum. No discrete abscess formation or drainable collection. Small right groin fluid collection measuring up to 5.4 cm in
diameter as above, most likely postoperative seroma.
[2024-08-28] MEDS: MYCAMINE 105 MG IV (13:46)
[2024-08-28 15:17] VITALS: BP 138/77
[2024-08-28 15:23] LABS: Hematocrit 35.6 % (39.0-52.0); Hemoglobin 12.1 g/dL (13.0-18.0)
[2024-08-28] MEDS: LOVENOX 40 MG SC (16:36)
--- NOTE | 2024-08-28 17:05 | W.PN.UPDATE ---
Update Note
Progress Note Update
Today's CT scan report and images reviewed. No extravasation of contrast to indicate leak from either the anastomosis or any other area of the GI tract. Some small volume residual free air improved from before. Described is 'possible small
developing abscess in the anterior lower abdomen with a pocket of rim-enhancing fluid that measures 3.9 x 0.9 x 3.0'. No contrast within this fluid. I communicated with Dr. Taylor of IR regarding this finding. This would be a challenge to
aspirate given its small size and Dr. Taylor did not feel that it looked particularly concerning. I concur. For now, the plan is continued antibiotics as per ID. Patient updated at beside.
[2024-08-28 23:35] VITALS: BP 128/84
[2024-08-29] MEDS: ZOSYN 50 IV ×4 (03:54→21:47)
[2024-08-29] MEDS: SYNTHROID 100 MCG PO (05:48)
[2024-08-29 05:56] VITALS: BMI 25.6
[2024-08-29] MEDS: ROXICODONE 5 MG PO ×3 (06:00→23:18)
[2024-08-29 07:34] LABS: Hematocrit 32.2 % (39.0-52.0); Hemoglobin 10.9 g/dL (13.0-18.0); Mean Corp Hgb Conc. 33.9 g/dL (33.0-37.0); Mean Corpuscular Hgb 27.7 pg (27.0-31.0); Mean Corpuscular Volume 81.9 fL (80.0-94.0); Mean Platelet Volume 9.5 fL (7.4-10.4); Platelet Count 380 10^3/uL (130-400); Red Blood Cell Count 3.93 10^6/uL (4.70-6.10); White Blood Cell Count 14.6 10^3/uL (4.8-10.8)
[2024-08-29 07:50] VITALS: BP 137/86
[2024-08-29 07:51] LABS: Blood Urea Nitrogen 8 mg/dl (9-20); Calcium 8.1 mg/dl (8.4-10.2); Carbon Dioxide 22 mmol/L (22-30); Chloride 107 mmol/L (98-107); Estimated Creatinine Clearance 96 ml/min; Glucose 103 mg/dl (70-99); Sodium 137 mmol/L (135-145); eGFR > 60.00
--- NOTE | 2024-08-29 07:59 | W.PN.HOSP.TC ---
Addendum entered and electronically signed by Jc Sandhu MD 08/29/24 16:22:
seen and examined by me independently in collaboration with the medical support specialist.
Lab data and imaging data reviewed.
Addendum as below :
Patient tolerating diet. He is not septic. Abdomen is soft. Ostomy functioning.
White count remains high. There is an abscess at the end of the ZACH drain. Not amenable for drainage by IR. Surgery following. Current plan is for antibiotics to be continued and follow white count.
No further rectal output. Yesterday he had rectal output with some bright blood which could be expected from his anastomosis site. H&H stable.
Original Note:
Today's Communication/Plan
-
Continue abx
Appreciate CRS input for management of developing abscess
Assessment / Plan
Assessment / Plan
# Acute diverticulitis with microperforation
# Sepsis secondary to diverticulitis perforation
- POD #6
- Hemodynamically stable. Not febrile, pain improving, tolerating diet, no change on exam.
- Continue tylenol, oxy and dilaudid as needed for pain
- Status post exploratory laparotomy, sigmoidectomy and ileostomy.
- Abd/pelvis CT with IV/oral contrast 08/28:
Interval sigmoidectomy and diverting loop ileostomy. No evidence for a postoperative contrast leak. Improving pneumoperitoneum compared to the previous CT. Possible small developing abscess in the anterior lower abdomen with a pocket of
rim-enhancing fluid that measures 3.9 x 0.9 x 3.0 cm.
- Colorectal surgery following, c/w low residue diet
- Appreciate colorectal surgery input for further management of developing abscess
- ZACH drain to be removed before discharge
- Intra-abdominal culture: E. coli, Enterococcus avium, yeast (pathogen 1 & 2 sensitive to zosyn)
- ID following, continue IV Zosyn (day 6 postop) and micafungin
# Leukocytosis
- Likely reactive, secondary to surgery
- Continue antibiotics
- Continue to trend
- Continues to uptrend, 14.6 today
- Colorectal surgery following, appreciate input for further management of developing abscess
# Rectal bleeding
- Patient had an episode of bloody rectal output yesterday afternoon
- No evidence of blood in ostomy
- Hgb stable
- Continue to monitor
# Elevated troponin
- Downtrending
- EKG without any acute ST-T changes
- Not symptomatic
- Follow for any chest pain
# Recent UTI
- Held Levaquin
# History of BPH s/p UroLift
- Continue tamsulosin
- Straight cath prn as needed
# Recent MVR/TVR/maze/left atrial appendage exclusion
- Not symptomatic
- Right groin open wound at prior cannulation site.
- Wound care following
Full code
DVT prophylaxis lovenox
Anticipated Discharge: > 48 hours
Subjective/Interval History
-
Date of Service: August 29, 2024
Objective Data
-
Labs:
Laboratory Results
08/29/24
06:26
WBC 14.6 H
Hgb 10.9 L
Hct 32.2 L
Plt Count 380
Sodium 137
Potassium 4.0
Chloride 107
Carbon Dioxide 22
BUN 8 L
Creatinine 0.8
Glucose 103 H
Calcium 8.1 L
Vital Signs:
Vital Signs
Temp Pulse Resp BP Pulse Ox
98.4 F 72 18 128/84 98
08/28/24 23:35 08/28/24 23:35 08/28/24 23:35 08/28/24 23:35 08/28/24 23:35
I&O
08/28/24 08/29/24 08/30/24
06:59 06:59 06:59
Intake Total 2144 / 2144 2199 / 2199
Output Total 390 / 390 983 / 983
Balance 1755 / 1755 1217 / 1217
Review of Systems
-
History Source: Patient
Constitutional: Reports No Symptoms
EENT: Reports No Symptoms Reported
Respiratory: Reports No Symptoms
Cardiac: Reports No Symptoms
Abdomen/GI: Reports Abdominal Pain; Denies Bloody Stools
Genitourinary: Reports No Symptoms
Musculoskeletal: Reports No Symptoms
Skin: Reports No Symptoms
Neuro: Reports No Symptoms
Endocrine: Reports No Symptoms
Hematologic / Lymphatic: Reports No Symptoms
Allergy / Immunology: Reports No Symptoms
Psych: Reports Sad
Physical Exam
-
General: Well Developed, Well Nourished, No Apparent Distress and Comfortable
HEENT: Normocephalic
Respiratory: Clear to Auscultation
Cardiac: Regular Rhythm and S1/S2
GI: Soft, Nondistended, Normal Bowel Sounds, Tender, Ostomy and Other (ZACH drain)
Rectal: Maroon Stools
Genito-urinary: No Costovertebral Tender
Musculoskeletal: No Clubbing, No Cyanosis and No Edema
Skin: Warm
Neuro: Awake, Alert, Oriented and AO x 3
Psych: Calm
[2024-08-29] MEDS: NEURONTIN 100 MG PO ×3 (09:12→21:20)
[2024-08-29] MEDS: FLOMAX 0.4 MG PO (09:12)
[2024-08-29] MEDS: PROTONIX IV 40 MG IV ×2 (09:13→21:19)
[2024-08-29] MEDS: NSS (PRESERVATIVE FREE) 10 ML IV ×2 (09:13→21:19)
[2024-08-29] MEDS: FLUSH (NSS) 2 FLUSH IV ×2 (09:13→14:07)
[2024-08-29 09:44] LABS: Absolute Neutrophils -Man Diff 8.1 10^3/uL (1.4-6.5); Anisocytosis Slight; Band Neutrophils 0 % (0-3); Eosinophils 2 % (0-6); Lymphocytes 39 % (20-51); Monocytes 3 % (2-9); Normal RBC Morphology No; Ovalocytes Slight; Platelets Checked Yes; Segmented Neutrophils 56 % (42-75); Total Cells Counted 100
--- NOTE | 2024-08-29 09:59 | W.PN.ID1 ---
Date of Service
Date of Service: August 29, 2024
Today's Communication
Check stool for C. diff.
Continue abx's.
Assessment / Plan
# Acute sigmoid diverticulitis perforation with feculent contamination
# Leukocytosis - trending up
# Fever resolved
- 08/23 s/p ex-lap sigmoidectomy, repair of small bowel tear, loop ileostomy
Appreciate colorectal for sending OR cx: E. coli, Enterococcus avum (amp-sensitive), yeast, mixed anaerobes
- Blood cultures x 2 neg
- Repeat CT/abd unrevealing per Colorectal
- Source of worsening Leukocytosis unclear.
Check stool for C. diff.
- Continue Zosyn (d6 recount from date of surgery).
- Continue Micafungin (d5) pending identification of the yeast
- Trend wbc
# Conditions [employer]
Hypothyroidism
Diverticulitis
Paroxysmal Afib s/p MAZE, LAAE 07/24/24
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
Tricuspid valve insufficiency s/p TV repair 07/24/24
Thyroid cancer s/ resection 1992
Uro lift
Right shoulder tear surgery
Chief Complaint
-: Leukocytosis and Other (Diverticulitis)
Subjective / Review of Systems
He reports feeling good. Urine now good flow. No abd pain. Eating OK.
Vital Signs / Physical Exam
Vital Signs
Vital Signs
Temp Pulse Resp BP Pulse Ox
98.4 F 68 16 137/86 96
08/29/24 07:50 08/29/24 07:50 08/29/24 07:50 08/29/24 07:50 08/29/24 07:50
Physical Exam
Constitutional: No Acute Distress and Comfortable
Head: Other (No frontal or maxillary sinus tenderness)
Eyes: Sclera Anicteric
Cardiovascular: Regular Rate and S1/S2
Pulmonary: Clear
Gastrointestinal: Soft, Non Tender, Non Distended and Other (ZACH drain: serosanguinous fluid; ostomy with liquid dark brown stool)
Extremities: Negative Edema
Neurological: AO x 3
Objective Data
Lab Data
Lab Results
08/29/24 06:26
08/29/24 06:26
Estimated Creat Clear 96 ml/min 08/29/24 06:26
Total Bilirubin 1.3 mg/dl (0.2-1.3) 08/17/24 06:32
AST 27 U/L (17-59) 08/17/24 06:32
ALT 36 U/L (0-50) 08/17/24 06:32
Alkaline Phosphatase 103 U/L (38-126) 08/17/24 06:32
C-Reactive Protein 89.10 mg/L (0.0-10.00) H 08/23/24 05:18
Most recent labs reviewed.
Micro Results:
08/23/24 15:01 Anaerobic Culture - Final
Abdomen
08/23/24 09:53 Blood Culture - Final
Blood/Venous No Growth - Final Report
08/23/24 09:10 Blood Culture - Final
Blood/Venous No Growth - Final Report
08/23/24 15:01 Wound Culture - Preliminary
Abdomen Escherichia coli
Enterococcus avium
Yeast
Gram Stain - Preliminary
08/19/24 14:15 Respiratory Culture - Final
Sputum Usual Respiratory Alexandra
Gram Stain - Final
08/28/24 CT a/p: Interval sigmoidectomy and diverting loop ileostomy. No evidence for a postoperative contrast leak. Improving pneumoperitoneum compared to the previous CT. Possible small developing abscess in the anterior lower abdomen with a pocket
of rim-enhancing fluid that measures 3.9 x 0.9 x 3.0 cm.
08/23/24 CT a/p: 1. Findings consistent with severe perforated sigmoid diverticulitis. Severe bowel wall thickening and mesenteric inflammatory change is seen adjacent to the proximal sigmoid colon. Collection of extraluminal air adjacent to the
inflamed portion of the sigmoid colon is consistent with perforation.
2. Large amount of free intraperitoneal air, significantly increased in amount compared to prior CT dated 08/17/2024.
3. Airspace consolidation at the right lung base, which may represent subsegmental atelectasis or pneumonia. Small right pleural effusion.
4. Bowel wall thickening at the gastroesophageal junction. Please correlate for symptoms, and if indicated with upper GI endoscopy.
08/17/24 CT a/p: Findings as above most consistent with severe sigmoid diverticulitis with associated small volume pneumoperitoneum. No discrete abscess formation or drainable collection. Small right groin fluid collection measuring up to 5.4 cm in
diameter as above, most likely postoperative seroma.
Care Review
Plan reviewed with: Nurse
--- NOTE | 2024-08-29 11:15 | W.PN.CRS1 ---
Today's Communication / Plan
-
trend wbc
wound care
Assessment/Plan
-
64-year-old male with PMH of paroxysmal A-fib (states this has resolved, not on any AC), BPH, hypothyroidism (thyroid cancer s/p thyroid surgery), GERD, diverticulitis (first episode in 2018, no procedures needed, no episodes since), valvular
disease s/p MVR/TVR on 07/24/2024 at [place] (postoperatively, course was complicated by bronchitis for a few weeks and recent UTI, currently taking Levaquin) who presents with acute abdominal pain x1 day. His last colonoscopy was 4 or so years
ago with [facility]. The report is not available to me, but states this was normal and recommended to repeat in 10 years. In the ED, his WBC was 21.7, troponin was 0.069. A CT scan was done showing severe sigmoid diverticulitis associated with
flecks of free air extending up to the right upper quadrant, groin seroma and stable kidney lesion. Initially, treated non-operatively and he had improved until 08/23, spiked a fever and repeat CT showed worsening free air
POD 6 ex lap, sigmoidectomy with EEA stapled anastomosis, diverting loop ileostomy
AFVSS
WBC 14.6 (13.5) Hb 10.9 (10.6)
� Continue low residue
� Continue pain control with Toradol, Dilaudid as needed
� Continue IV Zosyn and micafungin; appreciate ID
� Continue SQH for DVT PPx
� Straight cathing as needed; reached out to Dr. Rivera for any additional recommendations
� Okay for OOB/encourage IS
� Appreciate hospitalist
-Continue to trend WBC
-Local wound care
- Appreciate ID
Subjective Data
Subjective Data
Date of Service: August 29, 2024
Patient states he has no complaints. His pain is controlled. He denies nausea or vomiting. He is tolerating diet.
Objective Data
-
Vital Signs
Temp Pulse Resp BP Pulse Ox
98.4 F 68 16 137/86 96
08/29/24 07:50 08/29/24 07:50 08/29/24 07:50 08/29/24 07:50 08/29/24 07:50
Intake & Output
08/28/24 08/29/24 08/30/24
06:59 06:59 06:59
Intake Total 2145 / 2145 2200 / 2200 50 / 50
Output Total 390 / 390 983 / 983
Balance 1755 / 1755 1217 / 1217 50 / 50
Intake:
Oral fluids 240 / 240 2099 / 2099
IV fluids (Total) 1600 / 1600 0 / 0
IV piggybacks 305 / 305 100 / 100 50 / 50
Blood products 0 / 0
Output:
Liquid stool amount 100 / 100 350 / 350
Ileostomy 100 / 100 350 / 350
Drain Output (Total) 140 / 140 95 / 95
Left Abdomen Davonte-Waldron 140 / 140 95 / 95
Urine, Voided 150 / 150
Straight cath output 150 / 150 388 / 388
Other:
Number of approximated MODERATE 1 2
amounts of urine
Lab Results
08/29/24 06:26
08/29/24 06:26
Physical Exam
-
General: No Acute Distress and AOx3
Abdomen: Soft, Non Distended, Non Tender and Other (danny drain serosaningous)
Wound: Other (middle of midline wound with some cast discharge, qtip placed inside and opened, no francis drainage, dressing replaced)
--- NOTE | 2024-08-29 12:04 | CM ---
Reviewed the chart notes. WBC elevated. CM continues to be available to patient/family and is monitoring medical plan for needs at discharge.
Plan: Discharge to home when medically stable with [facility] services.
[facility]
[2024-08-29] MEDS: ASPIR LOW (ENTERIC COATED) 81 MG PO (14:06)
[2024-08-29] MEDS: MYCAMINE 105 MG IV (14:07)
[2024-08-29 15:15] VITALS: BP 136/83
[2024-08-29] MEDS: FLUSH (NSS) 1 FLUSH IV (16:15)
[2024-08-29] MEDS: LOVENOX 40 MG SC (17:32)
[2024-08-29] MEDS: PROTONIX IV IV (20:32)
[2024-08-29] MEDS: NSS (PRESERVATIVE FREE) IV (20:32)
[2024-08-29 23:00] VITALS: BP 129/81
[2024-08-30] MEDS: ZOSYN 50 IV ×2 (04:21→10:43)
[2024-08-30] MEDS: SYNTHROID 100 MCG PO (05:12)
[2024-08-30 07:19] LABS: Hematocrit 33.3 % (39.0-52.0); Hemoglobin 11.1 g/dL (13.0-18.0); Mean Corp Hgb Conc. 33.3 g/dL (33.0-37.0); Mean Corpuscular Hgb 27.6 pg (27.0-31.0); Mean Corpuscular Volume 82.8 fL (80.0-94.0); Mean Platelet Volume 9.1 fL (7.4-10.4); Platelet Count 387 10^3/uL (130-400); Red Blood Cell Count 4.02 10^6/uL (4.70-6.10); Red Cell Dist. Width 14.4 % (11.5-14.5); White Blood Cell Count 12.9 10^3/uL (4.8-10.8)
[2024-08-30 07:40] VITALS: BP 120/84
[2024-08-30 07:44] LABS: Blood Urea Nitrogen 8 mg/dl (9-20); Calcium 8.6 mg/dl (8.4-10.2); Carbon Dioxide 24 mmol/L (22-30); Chloride 106 mmol/L (98-107); Estimated Creatinine Clearance 86 ml/min; Glucose 110 mg/dl (70-99); Potassium 4.2 mmol/L (3.5-5.1); Sodium 137 mmol/L (135-145); eGFR > 60.00
[2024-08-30 07:50] LABS: Absolute Neutrophils -Man Diff 6.5 10^3/uL (1.4-6.5); Anisocytosis Slight; Band Neutrophils 0 % (0-3); Eosinophils 4 % (0-6); Lymphocytes 40 % (20-51); Monocytes 5 % (2-9); Normal RBC Morphology No; Ovalocytes Slight; Platelets Checked Yes; Segmented Neutrophils 51 % (42-75)
[2024-08-30 07:51] LABS: Total Cells Counted 100
--- NOTE | 2024-08-30 07:56 | W.PN.HOSP.TC ---
Addendum entered and electronically signed by Jc Sandhu MD 08/30/24 15:21:
Seen and examined by me independently in collaboration with the medical observer.
Lab data and imaging data reviewed.
Addendum as below :
Patient with improved pain symptoms and also tolerating oral diet well. Improving white count, improved ZACH drain and decreasing need of pain medication. C. difficile negative.
Abdomen soft.
Patient seen by colorectal surgery who discontinued the ZACH drain.
Discussed with ID who recommended Bactrim, Augmentin and antifungal for 14 days.
Medically stable for discharge.
Discussed with the patient about the medication and discharge follow-up plan.
Total time of discharge 32 minutes
Original Note:
Today's Communication/Plan
-
White count downtrending
Appreciate ID for oral abx management
Appreciate CRS regarding discharge plan
Assessment / Plan
Assessment / Plan
# Acute diverticulitis with microperforation
# Sepsis secondary to diverticulitis perforation
- POD #7
- Hemodynamically stable. Not febrile, pain improving, tolerating diet, white count downtrending, no change on exam.
- Continue tylenol, oxy and dilaudid as needed for pain
- Status post exploratory laparotomy, sigmoidectomy and ileostomy.
- Abd/pelvis CT with IV/oral contrast 08/28:
Interval sigmoidectomy and diverting loop ileostomy. No evidence for a postoperative contrast leak. Improving pneumoperitoneum compared to the previous CT. Possible small developing abscess in the anterior lower abdomen with a pocket of
rim-enhancing fluid that measures 3.9 x 0.9 x 3.0 cm.
- Colorectal surgery following, c/w low residue diet
- ZACH drain to be removed before discharge
- Intra-abdominal culture: E. coli, Enterococcus avium, yeast (pathogen 1 & 2 sensitive to zosyn)
- ID following, continue IV Zosyn (day 7 postop) and micafungin, appreciate ID input for abx management
# Leukocytosis
- Likely reactive, secondary to surgery
- Continue antibiotics
- Continue to trend
- Now downtrending, 12.9 today
- Colorectal surgery following
# Rectal bleeding
- Patient had an episode of bloody rectal output yesterday afternoon
- No evidence of blood in ostomy
- Hgb stable
- Continue to monitor
- No further episodes, expected with anastomosis.
# Elevated troponin
- Downtrending
- EKG without any acute ST-T changes
- Not symptomatic
- Follow for any chest pain
# Recent UTI
- Held Levaquin
# History of BPH s/p UroLift
- Continue tamsulosin
- Straight cath prn as needed
# Recent MVR/TVR/maze/left atrial appendage exclusion
- Not symptomatic
- Right groin open wound at prior cannulation site.
- Wound care following
Full code
DVT prophylaxis lovenox
Anticipated Discharge: 24 - 48 hours
Subjective/Interval History
-
Date of Service: August 30, 2024
Objective Data
-
Labs:
Laboratory Results
08/30/24
06:27
WBC 12.9 H
Hgb 11.1 L
Hct 33.3 L
Plt Count 387
Sodium 137
Potassium 4.2
Chloride 106
Carbon Dioxide 24
BUN 8 L
Creatinine 0.9
Glucose 110 H
Calcium 8.6
Vital Signs:
Vital Signs
Temp Pulse Resp BP Pulse Ox
98.3 F 69 16 120/84 97
08/30/24 07:40 08/30/24 07:40 08/30/24 07:40 08/30/24 07:40 08/30/24 07:40
I&O
08/29/24 08/30/24 08/31/24
06:59 06:59 06:59
Intake Total 2200 / 2200 780 / 780
Output Total 983 / 983 260 / 260
Balance 1217 / 1217 520 / 520
Review of Systems
-
History Source: Patient
Constitutional: Reports No Symptoms
EENT: Reports No Symptoms Reported
Respiratory: Reports No Symptoms
Cardiac: Reports No Symptoms
Abdomen/GI: Reports Abdominal Pain; Denies Nausea, Vomiting or Diarrhea
Breast: Reports No Symptoms
Genitourinary: Reports No Symptoms
Musculoskeletal: Reports No Symptoms
Skin: Reports No Symptoms
Neuro: Reports No Symptoms
Endocrine: Reports No Symptoms
Hematologic / Lymphatic: Reports No Symptoms
Allergy / Immunology: Reports No Symptoms
Physical Exam
-
General: Well Developed, Well Nourished, No Apparent Distress and Comfortable; Negative Fever
HEENT: Normocephalic
Respiratory: Clear to Auscultation
Cardiac: Regular Rhythm and S1/S2
GI: Soft, Nondistended, Normal Bowel Sounds, Tender and Ostomy
Musculoskeletal: No Clubbing, No Cyanosis and No Edema
Skin: Warm
Neuro: Awake, Alert, Oriented and AO x 3
Hematologic / Lymphatic: No Lymphadenopathy
Psych: Calm
[2024-08-30] MEDS: FLUSH (NSS) 1 FLUSH IV ×2 (08:59→10:43)
[2024-08-30] MEDS: NEURONTIN 100 MG PO ×2 (08:59→15:35)
[2024-08-30] MEDS: PROTONIX IV 40 MG IV (08:59)
[2024-08-30] MEDS: FLOMAX 0.4 MG PO (08:59)
[2024-08-30] MEDS: NSS (PRESERVATIVE FREE) 10 ML IV (08:59)
[2024-08-30] MEDS: ASPIR LOW (ENTERIC COATED) 81 MG PO (08:59)
--- NOTE | 2024-08-30 10:03 | W.PN.ID1 ---
Date of Service
Date of Service: August 30, 2024
Today's Communication
At time of dc transition to Augmentin 875mg po bid, Bactrim DS 1 tab bid, and fluconazole 200mg po qd x 14 more days.
Assessment / Plan
# Acute sigmoid diverticulitis perforation with feculent contamination
# Leukocytosis - trended down today
# Fever resolved
- 08/23 s/p ex-lap sigmoidectomy, repair of small bowel tear, loop ileostomy
Appreciate colorectal for sending OR cx: E. coli, Enterococcus avum (amp-sensitive), C. albicans, mixed anaerobes
- Blood cultures x 2 neg
- Repeat CT/abd possible developing abscess anterior lower abd too small for IR to aspirate.
- stool for C. diff. negative
- Continue Zosyn (d7 recount from date of surgery).
- Can replace Micafungin (d6) with fluconazole 200mg po daily.
- At time of dc transition to Augmentin 875mg po bid, Bactrim DS 1 tab bid, and fluconazole 200mg po qd x 14 more days.
# Conditions [employer]
Hypothyroidism
Diverticulitis
Paroxysmal Afib s/p MAZE, LAAE 07/24/24
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
Tricuspid valve insufficiency s/p TV repair 07/24/24
Thyroid cancer s/ resection 1992
Uro lift
Right shoulder tear surgery
Chief Complaint
-: Leukocytosis and Other (Diverticulitis)
Subjective / Review of Systems
Feels well. No complaints.
Vital Signs / Physical Exam
Vital Signs
Vital Signs
Temp Pulse Resp BP Pulse Ox
98.3 F 69 16 120/84 97
08/30/24 07:40 08/30/24 07:40 08/30/24 07:40 08/30/24 07:40 08/30/24 07:40
Physical Exam
Constitutional: No Acute Distress and Comfortable
Head: Other (No frontal or maxillary sinus tenderness)
Eyes: Sclera Anicteric
Cardiovascular: Regular Rate and S1/S2
Pulmonary: Clear
Gastrointestinal: Soft, Non Tender, Non Distended and Other ( ostomy with liquid dark brown stool)
Extremities: Negative Edema
Neurological: AO x 3
Objective Data
Lab Data
Lab Results
08/30/24 06:27
08/30/24 06:27
Estimated Creat Clear 86 ml/min 08/30/24 06:27
Total Bilirubin 1.3 mg/dl (0.2-1.3) 08/17/24 06:32
AST 27 U/L (17-59) 08/17/24 06:32
ALT 36 U/L (0-50) 08/17/24 06:32
Alkaline Phosphatase 103 U/L (38-126) 08/17/24 06:32
C-Reactive Protein 89.10 mg/L (0.0-10.00) H 08/23/24 05:18
Most recent labs reviewed.
Micro Results:
08/23/24 15:01 Wound Culture - Final
Abdomen Escherichia coli
Enterococcus avium
Belkys albicans
Gram Stain - Final
08/29/24 10:23 C. difficile GDH Antigen & Toxins - Final
Feces/Stool Negative for toxigenic C.difficile
08/23/24 15:01 Anaerobic Culture - Final
Abdomen
08/23/24 09:53 Blood Culture - Final
Blood/Venous No Growth - Final Report
08/23/24 09:10 Blood Culture - Final
Blood/Venous No Growth - Final Report
08/19/24 14:15 Respiratory Culture - Final
Sputum Usual Respiratory Alexandra
Gram Stain - Final
08/28/24 CT a/p: Interval sigmoidectomy and diverting loop ileostomy. No evidence for a postoperative contrast leak. Improving pneumoperitoneum compared to the previous CT. Possible small developing abscess in the anterior lower abdomen with a pocket
of rim-enhancing fluid that measures 3.9 x 0.9 x 3.0 cm.
08/23/24 CT a/p: 1. Findings consistent with severe perforated sigmoid diverticulitis. Severe bowel wall thickening and mesenteric inflammatory change is seen adjacent to the proximal sigmoid colon. Collection of extraluminal air adjacent to the
inflamed portion of the sigmoid colon is consistent with perforation.
2. Large amount of free intraperitoneal air, significantly increased in amount compared to prior CT dated 08/17/2024.
3. Airspace consolidation at the right lung base, which may represent subsegmental atelectasis or pneumonia. Small right pleural effusion.
4. Bowel wall thickening at the gastroesophageal junction. Please correlate for symptoms, and if indicated with upper GI endoscopy.
08/17/24 CT a/p: Findings as above most consistent with severe sigmoid diverticulitis with associated small volume pneumoperitoneum. No discrete abscess formation or drainable collection. Small right groin fluid collection measuring up to 5.4 cm in
diameter as above, most likely postoperative seroma.
Care Review
Plan reviewed with: Physician (Dr. Sandhu)
--- NOTE | 2024-08-30 10:34 | CM ---
Reviewed the chart notes. Updated clinicals sent to [facility] via [facility]. continues to be available to patient/family and is monitoring medical plan for needs at discharge.
Plan: Discharge to home when medically stable with [facility] services.
[facility]
[2024-08-30] MEDS: DIFLUCAN 200 MG PO (10:42)
[2024-08-30] MEDS: ROXICODONE 5 MG PO (11:25)
--- NOTE | 2024-08-30 11:29 | WOUNDNOTE ---
[facility] RN NOTE: Patient visited for ostomy teaching before possible discharge today. Patient reports that he has been emptying pouch and feels confident about going home with ostomy. No leaking noted with pouch removal. Skin intact, ostomy pink and
budded. Appliance changed with barrier # [id number] and pouch #[id number]. An extra barrier was cut for patient to bring home. Patient sent home with 7 pouches, 7 barriers. Will follow as needed.
--- NOTE | 2024-08-30 11:37 | WOUNDNOTE ---
Toby Barrier # [id number] and Pouch # [id number]. Use [employer] seal PRN
Call supply company (list in folder provided) for monthly Ostomy supplies after discharge (ask VN to order supplies while on service).
Follow up with surgeon.
Call [facility] RN nurse for ostomy pouching concerns or leakage problems [phone] or [phone] or [phone].
--- NOTE | 2024-08-30 11:38 | WOUNDNOTE ---
[facility] RN NOTE: Right groin wound now closed and open to air.
--- NOTE | 2024-08-30 13:03 | W.PN.CRS1 ---
Today's Communication / Plan
-
Okay for discharge from our perspective.
Assessment/Plan
-
64-year-old male with PMH of paroxysmal A-fib (states this has resolved, not on any AC), BPH, hypothyroidism (thyroid cancer s/p thyroid surgery), GERD, diverticulitis (first episode in 2018, no procedures needed, no episodes since), valvular
disease s/p MVR/TVR on 07/24/2024 at [place] (postoperatively, course was complicated by bronchitis for a few weeks and recent UTI, currently taking Levaquin) who presents with acute abdominal pain x1 day. His last colonoscopy was 4 or so years
ago with [facility]. The report is not available to me, but states this was normal and recommended to repeat in 10 years. In the ED, his WBC was 21.7, troponin was 0.069. A CT scan was done showing severe sigmoid diverticulitis associated with
flecks of free air extending up to the right upper quadrant, groin seroma and stable kidney lesion. Initially, treated non-operatively and he had improved until 08/23, spiked a fever and repeat CT showed worsening free air
POD 7 ex lap, sigmoidectomy with EEA stapled anastomosis, diverting loop ileostomy
AFVSS
WBC 12.9 (14.6), Hb 11.1
� Continue low residue
� Continue pain control with Toradol, Dilaudid as needed
� Continue IV Zosyn and micafungin; appreciate ID
� Continue SQH for DVT PPx
� Okay for OOB/encourage IS
� Appreciate hospitalist
-Local wound care
-Okay for discharge from our perspective. ZACH drain to be removed prior to discharge later this afternoon. Will need follow-up in 2 weeks. Continue low residue diet until appointment Dr. Marsh.
Subjective Data
Subjective Data
Date of Service: August 30, 2024
Patient states he feels well today. He has no complaints. He is tolerating diet. His pain is minimal. Has colostomy function. He overall feels well.
Objective Data
-
Vital Signs
Temp Pulse Resp BP Pulse Ox
98.3 F 69 16 120/84 97
08/30/24 07:40 08/30/24 07:40 08/30/24 07:40 08/30/24 07:40 08/30/24 09:00
Intake & Output
08/29/24 08/30/24 08/31/24
06:59 06:59 06:59
Intake Total 2200 / 2200 780 / 780
Output Total 983 / 983 260 / 260
Balance 1217 / 1217 520 / 520
Intake:
Oral fluids 2100 / 2100 480 / 480
IV fluids (Total) 0 / 0
IV piggybacks 100 / 100 300 / 300
Blood products 0 / 0
Output:
Liquid stool amount 350 / 350 225 / 225
Ileostomy 350 / 350 225 / 225
Drain Output (Total) 35 / 35
Left Abdomen Davonte-Waldron 35 / 35
Urine, Voided 150 / 150
Straight cath output 388 / 388
Other:
Number of approximated MODERATE 1 2
amounts of urine
Lab Results
08/30/24 06:27
08/30/24 06:27
Physical Exam
-
General: No Acute Distress and AOx3
Abdomen: Soft, Non Distended, Non Tender and Other (ZACH drain serosanguineous)
Wound: Dressing Changed
--- NOTE | 2024-08-30 13:53 | WOUNDNOTE ---
RIGHT GROIN WOUND
[2024-08-30 15:31] VITALS: BP 130/82
--- NOTE | 2024-08-30 16:08 | PTCARENOTE ---
pt discharged to home. Discharge instructions reviewed with pt and . received call from [facility] pharmacist. questions regarding medication colchicine and potential interaction with new medication-Diflucan. pt not currently receiving
colchicine in hospital. pt instructed to contact cardiac surgeon regarding resuming colchicine. pt verbalized understanding.
--- NOTE | 2024-08-30 16:49 | W.DCSUMMARY ---
Discharge Summary
Discharge Data
Date of Admission: 08/17/24
Date of Discharge: 08/30/24
-
Pending Results: No
Hospital Course
Discharging Physician : Dr. Milagros Lopez, Dr. Jc Sandhu
Disposition : Home with VN
Primary care physician : Dr. Daquan Love
Principal Discharge diagnosis :
Acute diverticulitis with microperforation
Sepsis secondary to diverticulitis perforation
Sigmoidectomy and ileostomy
Nonischemic myocardial injury
Chronic Discharge diagnosis :
Recent urinary tract infection
History of BPH status post UroLift
Recent MVR/TVR/maze/LAAE
History of hypothyroidism
History of diverticulitis
Hospital Course :
64-year-old male with past medical history as above presenting to the ED with acute onset generalized abdominal pain.
# Acute sigmoid diverticulitis with microperforation
# Sepsis secondary to diverticulitis perforation
- On initial workup in the ED, white BC was 21.7, troponin was 0.069. EKG without any acute ST-T changes consistent with nonischemic myocardial injury.
- A CT scan was done showing severe sigmoid diverticulitis associated with flecks of free air extending up to the right upper quadrant, groin seroma and stable kidney lesion.
- Colorectal surgery was consulted, discussed the treatment options including nonoperative management versus surgery. Patient and elected to proceed with nonoperative management and close monitoring.
- ID on board, started IV Zosyn
- Patient was started on clear liquid diet, slowly advanced to full liquids per colorectal surgery
- Remains hemodynamically stable, no fever, abdominal pain was improving and antibiotics were continued.
- Patient was eventually tolerating a normal diet and was cleared by surgery for discharge with transition to moxifloxacin. However, developed a temperature of 102.1 at time of discharge. Discharge was canceled and patient was advised to stay in
the hospital for close monitoring.
- White count slightly increased next day, patient had worsening abdominal pain.
- Repeat CT scan read as severe perforated sigmoid diverticulitis. Colorectal surgery discussed situation with patient and his and recommended surgery. Patient agreed to proceed.
- Exploratory laparotomy, sigmoidectomy, and loop ileostomy was performed 08/24/2024, ZACH drain was placed and abdominal fluid cultures were sent.
- Patient remained afebrile postoperative, white count initially decreased but slightly trended up. Patient was tolerating diet and had no worsening pain. CT ordered to rule out intra-abdominal process, described 2 hours possible small developing
abscess in the anterior lower abdomen with a pocket of rim-enhancing fluid that measures 3.9 x 0.9 x 3.0. Colorectal surgery discussed situation with IR and the challenge to aspirate the abscess given its small size. Decision was made to continue
with antibiotics. C. diff checked, negative.
- Eventually, white count continues to downtrend, patient was tolerating diet, ostomy was functioning and there was decreased serosanguineous ZACH output. Patient also had decreased need of pain medication.
-Abdominal fluid cultures showed growth of E. coli, Enterococcus avium, Belkys albicans. ID added micafungin.
- ZACH drain was removed in patient was cleared for discharge by colorectal surgery. Midline wound with serosanguineous drainage, close with intermittent marilee.
- ID recommended transition to Bactrim, fluconazole and Augmentin for 14 more days at time of discharge.
- Patient scheduled for an outpatient appointment with colorectal surgeon, Dr. Marsh, for further follow-up. He was advised to continue with low residue diet.
#History of BPH status post UroLift
- Patient had been self catheterizing prior to admission
- Colorectal surgery discussed with Dr. Carlos for any additional recommendations
- Patient was able to void without the need for self-catheterization during his stay, was self catheterizing at bedtime for convenience
Important imaging findings :
Abdomen/pelvis CT (08/17/24):
1. Findings as above most consistent with severe sigmoid diverticulitis with associated small volume pneumoperitoneum. No discrete abscess formation or drainable collection.
2. Small right groin fluid collection measuring up to 5.4 cm in diameter as above, most likely postoperative seroma.
3. Unchanged subcentimeter possibly enhancing left renal lesion as described on previous report. Consider follow-up scan in 6-12 months.
Abdomen/pelvis CT (08/23/24):
1. Findings consistent with severe perforated sigmoid diverticulitis. Severe bowel wall thickening and mesenteric inflammatory change is seen adjacent to the proximal sigmoid colon. Collection of extraluminal air adjacent to the inflamed portion of
the sigmoid colon is consistent with perforation.
2. Large amount of free intraperitoneal air, significantly increased in amount compared to prior CT dated 08/17/2024.
3. Airspace consolidation at the right lung base, which may represent subsegmental atelectasis or pneumonia. Small right pleural effusion.
4. Bowel wall thickening at the gastroesophageal junction. Please correlate for symptoms, and if indicated with upper GI endoscopy.
Abdomen/pelvis CT (08/28/24):
Interval sigmoidectomy and diverting loop ileostomy. No evidence for a postoperative contrast leak. Improving pneumoperitoneum compared to the previous CT. Possible small developing abscess in the anterior lower abdomen with a pocket of
rim-enhancing fluid that measures 3.9 x 0.9 x 3.0 cm.
Procedure findings :
Exploratory laparotomy (08/23/2024):
Perforated sigmoid diverticulitis with feculent and exudative contamination. Sigmoidectomy, repair serosal rent/partial thickness enterotomy, loop ileostomy creation and flexible sigmoidoscopy was performed.
Discharge Plan
-
Patient Disposition: Home with Home Care
Discharge Diagnosis/Procedures: Acute diverticulitis with microperforation, sepsis secondary to diverticulitis perforation, sigmoidectomy and ileostomy, nonischemic myocardial injury, recent urinary tract infection, history of BPH status post
UroLift, recent MVR/TVR/maze/LAAE, history of hypothyroidism
Condition: Fair
Diet: Low Residue
Activity: No strenuous activity
Additional Activity: No lifting over 10lbs (gallon of milk)
Driving Restrictions: Not until seen by your Dr
Bathing Restrictions: OK to Shower
Other Services: VN
Wound Care: Apply paper gauze and tape to midline incision daily until drainage stops. Then okay to leave open to air. ZACH drain site will seal in 3 to 5 days. Cover with gauze and paper tape until it is sealed over. Abdominal marilee will be
removed at your office appointment with Dr. Marsh.
Activity Restrictions/Additional Instructions:
Wound Care Instructions Per Cardiothoracic surgery.
Instructions: Low-fiber diet, How to care for an ostomy
Referrals:
Christopher Marsh MD [Active] - in two weeks
Daquan Love MD [Family Provider] -
Additional Discharge Medication Instructions: You should see your colorectal surgeon, Dr. Marsh, in 2 weeks of discharge.
Continue to take your antibiotics for 14 more days after discharge.
Tylenol or Ibuprofen as needed for pain. Maximum dose of Tylenol is 4,000mg in 24 hours. Maximum dose of Ibuprofen is 3,200mg in 24 hours.
Prescriptions:
New
amoxicillin-pot clavulanate 875-125 mg tablet
1 tab PO BID 14 Days Qty: 28 0RF
sulfamethoxazole-trimethoprim [Bactrim DS] 800-160 mg tablet
1 tab PO BID 14 Days Qty: 28 0RF
fluconazole 200 mg tablet
200 mg PO DAILY 14 Days Qty: 14 0RF
oxycodone 5 mg tablet
5 mg PO Q4H PRN (Reason: moderate to severe pain) Qty: 20 0RF
oxycodone 5 mg tablet
5 mg PO Q6H PRN (Reason: Pain) Qty: 20 0RF
Continued
levothyroxine [Synthroid] 100 MCG tablet
100 mcg PO DAILY
aspirin 81 mg Tablet,Delayed Release (Dr/Ec)
81 mg PO DAILY
gabapentin 100 mg Capsule
100 mg PO TID Qty: 30 0RF
tamsulosin [Flomax] 0.4 mg Capsule
0.4 mg PO DAILY
Discontinued
psyllium husk [Metamucil] 0.4 gram Capsule
1.8 g PO BID
levofloxacin 500 mg Tablet
500 mg PO DAILY
Rx Instructions:
for 10 days starting 08/14/24
oxycodone 5 mg tablet
5 mg PO NOON
Discharge Orders:
Discharge Patient (As Directed); Ordered 08/30/24
Ordered By: Jc Sandhu
Discharge Date and Time
Discharge Date/Time: 08/30/24 16:00
Print Language: MALTESE
== END 2024-08-30 16:00 | disposition home health service (06) | DRG 329 ==
LOC: 2 SOUTH 10:36
PROVIDERS: Registered Nurse; Surgery; ADMITTING PHYSICIAN Internal Medicine; CONSULT PHYSICIAN Surgery; EMERGENCY PHYSICIAN Emergency Medicine; FAMILY PHYSICIAN Family Medicine; OTHER PHYSICIAN Internal Medicine Infectious Disease; OTHER PHYSICIAN Nurse Practitioner
PROC: 0DQ80ZZ Repair Small Intestine, Open Approach (ICD-10-PCS; 2024-08-24)
PROC: 0DJD8ZZ Inspection of Lower Intestinal Tract, Via Natural or Artificial Opening Endoscopic (ICD-10-PCS; 2024-08-24)
PROC: 0D1B0Z4 Bypass Ileum to Cutaneous, Open Approach (ICD-10-PCS; 2024-08-24)
PROC: 0DBN0ZZ Excision of Sigmoid Colon, Open Approach (ICD-10-PCS; 2024-08-24)
DX: K57.20 Diverticulitis of large intestine with perforation and abscess without bleeding (principal); A41.9 Sepsis, unspecified organism; I5A Non-ischemic myocardial injury (non-traumatic); N39.0 Urinary tract infection, site not specified; K62.5 Hemorrhage of anus and rectum; N40.0 Benign prostatic hyperplasia without lower urinary tract symptoms; E03.9 Hypothyroidism, unspecified; Z79.890 Hormone replacement therapy; K59.00 Constipation, unspecified; Z85.850 Personal history of malignant neoplasm of thyroid; Z79.82 Long term (current) use of aspirin; Z79.899 Other long term (current) drug therapy; I48.0 Paroxysmal atrial fibrillation; K66.0 Peritoneal adhesions (postprocedural) (postinfection)
CPT/HCPCS: 88307; 71045; 74177; 80048; 80053; 81003; 81015; 83735; 84484; 85014; 85018; 85025; 85027; 86140; 86850; 86900; 86901; 87040; 87070; 87075; 87077; 87106; 87186; 87205; 87324; 87449; 93005; 96374; 96375; 96376; 99285; C1776; Q9967

== ENCOUNTER → 2024-10-31 13:01 | Outpatient (REF) | payer OTHER, SELFPAY | LOC: RAD 13:01 | PROVIDERS: ATTENDING PHYSICIAN Surgery; FAMILY PHYSICIAN General Practice | DX: K57.32 Diverticulitis of large intestine without perforation or abscess without bleeding (principal) | CPT/HCPCS: 74270 ==

== ENCOUNTER 2024-11-01 07:29 | Inpatient (IN) | payer OTHER, SELFPAY ==
[2024-10-29 08:53] LABS: Hematocrit 43.8 % (39.0-52.0); Hemoglobin 14.3 g/dL (13.0-18.0); Mean Corp Hgb Conc. 32.6 g/dL (33.0-37.0); Mean Corpuscular Volume 83.7 fL (80.0-94.0); Platelet Count 212 10^3/uL (130-400); Red Cell Dist. Width 14.5 % (11.5-14.5)
[2024-10-29 09:04] LABS: INR 1.02; PT 13.7 Sec (11.4-14.6)
[2024-10-29 09:05] LABS: APTT 32.5 Sec (23.4-35.0)
[2024-10-29 10:00] LABS: ALT (SGPT) 48 U/L (0-50); AST (SGOT) 26 U/L (17-59); Albumin 4.2 g/dl (3.5-5.0); Alkaline Phosphatase 75 U/L (38-126); Blood Urea Nitrogen 20 mg/dl (9-20); Calcium 9.5 mg/dl (8.4-10.2); Carbon Dioxide 27 mmol/L (22-30); Chloride 106 mmol/L (98-107); Glucose 104 mg/dl (70-99); Potassium 4.6 mmol/L (3.5-5.1); Sodium 141 mmol/L (135-145); Total Protein 7.4 g/dl (6.3-8.2); eGFR > 60.00
[2024-10-29 10:37] LABS: Glycohemoglobin (HgbA1c) 5.4 % (4.0-5.6)
[2024-10-29 14:11] VITALS: BMI 26.3
--- NOTE | 2024-10-31 07:39 | PTCARENOTE ---
Patient voiced concern regarding urinary cath placement, if required for procedure. Stated there were some challenges with a cath with his last hospitalization, resulting in some 'damage to his previous urolift procedure'. Notified Catalina Prescott @
Dr. Gay office regarding patients concerns.
[2024-11-01] VITALS (12 sets, daily range): BP systolic 111–134; BP diastolic 63–94; BMI 26.3
[2024-11-01] MEDS: NEURONTIN 600 MG PO (08:16)
[2024-11-01] MEDS: TYLENOL 1000 MG PO (08:16)
[2024-11-01] MEDS: NORMOSOL-R/PLASMALYTE-A 1000 IV ×3 (08:16→21:22)
[2024-11-01] MEDS: ENTEREG 12 MG PO (08:16)
[2024-11-01] MEDS: HEPARIN 5000 UNITS SC (08:17)
--- NOTE | 2024-11-01 11:55 | W.IMMPOSTOP ---
Surgical Immed Post Op Note
-
Primary Surgeon: Cee Marsh MD
Assisting Surgeon: ROCKY Leiva
Pre-op Diagnosis: 1) loop ileostomy 2) history of perforated diverticulitis
Post-op Diagnosis: same
Procedure Performed: 1) flexible sigmoidoscopy 2) loop ileostomy takedown with partial small bowel resection
Anesthesia Type: general plus local
Specimen / Cultures: small portion of small bowel include ileostomy
Estimated Blood Loss: 20 cc
Complications: no immediate
Operative Findings: none
Saleem in bladder.
Will send to med surg.
[2024-11-01 12:46] LABS: Hematocrit 41.3 % (39.0-52.0); Hemoglobin 13.8 g/dL (13.0-18.0); Mean Corp Hgb Conc. 33.4 g/dL (33.0-37.0); Mean Corpuscular Volume 82.3 fL (80.0-94.0); Nucleated Red Blood Cells % 0 % (-); Platelet Count 182 10^3/uL (130-400); Red Cell Dist. Width 14.1 % (11.5-14.5)
[2024-11-01 12:53] LABS: Blood Urea Nitrogen 18 mg/dl (9-20); Calcium 8.4 mg/dl (8.4-10.2); Carbon Dioxide 22 mmol/L (22-30); Chloride 105 mmol/L (98-107); Estimated Creatinine Clearance 96 ml/min; Glucose 111 mg/dl (70-99); Magnesium 1.8 mg/dl (1.6-2.3); Potassium 4.2 mmol/L (3.5-5.1); Sodium 136 mmol/L (135-145); eGFR > 60.00
[2024-11-01] MEDS: TORADOL 15 MG IV ×3 (13:03→23:59)
[2024-11-01] MEDS: DILAUDID 0.25 MG IV ×2 (13:11→17:36)
--- NOTE | 2024-11-01 13:56 | PTCARENOTE ---
pt received from pacu. aaox3. states min pain in abd. abd dressing intact with small amt of shadowing marked. ivf running. at bedside. reviewed plan of care. gore intact.
[2024-11-01] MEDS: TYLENOL 650 MG PO ×2 (16:08→19:43)
[2024-11-01] MEDS: TYLENOL PO (23:56)
[2024-11-02] MEDS: TYLENOL PO (00:02)
[2024-11-02] MEDS: TYLENOL 650 MG PO ×5 (02:59→21:37)
[2024-11-02] MEDS: SYNTHROID 100 MCG PO (05:56)
[2024-11-02] MEDS: TORADOL 15 MG IV ×3 (05:59→18:20)
[2024-11-02 06:00] VITALS: BMI 26.4
[2024-11-02 07:05] VITALS: BP 135/75
[2024-11-02 07:23] LABS: Hematocrit 37.9 % (39.0-52.0); Hemoglobin 12.7 g/dL (13.0-18.0); Mean Corp Hgb Conc. 33.5 g/dL (33.0-37.0); Mean Corpuscular Volume 81.3 fL (80.0-94.0); Nucleated Red Blood Cells % 0 % (-); Platelet Count 206 10^3/uL (130-400); Red Cell Dist. Width 13.9 % (11.5-14.5)
[2024-11-02 07:55] LABS: Blood Urea Nitrogen 18 mg/dl (9-20); Calcium 8.6 mg/dl (8.4-10.2); Carbon Dioxide 25 mmol/L (22-30); Chloride 106 mmol/L (98-107); Estimated Creatinine Clearance 96 ml/min; Glucose 107 mg/dl (70-99); Potassium 4.2 mmol/L (3.5-5.1); Sodium 135 mmol/L (135-145); eGFR > 60.00
[2024-11-02] MEDS: FLOMAX 0.4 MG PO (08:30)
[2024-11-02] MEDS: ASPIR LOW (ENTERIC COATED) 81 MG PO (08:31)
[2024-11-02] MEDS: NORMOSOL-R/PLASMALYTE-A 1000 IV ×2 (08:32→18:21)
--- NOTE | 2024-11-02 10:32 | CM ---
Reviewed the chart notes and spoke with the patient at the bedside. The patient resides with spouse in a two story home with one step to enter. The patient reports no DME or SNF in past, but had [facility]. The patient confirmed his pharmacy of
choice is [facility] [address] [place]. The patient anticipates being discharged to home with no needs. CM continues to be available to patient/family and is monitoring medical plan for needs at discharge.
Plan: Discharge to home when medically stable. No needs identified at this time.
[2024-11-02 11:05] VITALS: BP 131/84
--- NOTE | 2024-11-02 12:31 | W.PN.CRS1 ---
Today's Communication / Plan
-
as above
Assessment/Plan
-
64-year-old male with PMH of paroxysmal A-fib (resolved, not on any AC), BPH, hypothyroidism (thyroid cancer s/p thyroid surgery), GERD, valvular disease s/p MVR/TVR on 07/24/2024, perforated diverticulitis s/p sigmoidectomy with DLI on 08/23/2024,
presents for elective surgery
POD 1 diverting loop ileostomy reversal
AFVSS
WBC 15.9, Hb 12.7 from 13.8, CR 0.8
� Elevation in WBC, likely reactive; will trend
� Advance to clear liquids
� Start DVT PPx with Lovenox
� Pain control with Tylenol, Toradol, Dilaudid as needed; will add oxycodone as needed
� DC Saleem, monitor for void
� Encourage OOB/IS
Subjective Data
Subjective Data
Date of Service: November 02, 2024
No overnight events. Denies any N/V.
Pain controlled.
Passing flatus, no BMs. Saleem in place.
Objective Data
-
Vital Signs
Temp Pulse Resp BP Pulse Ox
97.7 F 71 16 131/84 98
11/02/24 11:05 11/02/24 11:05 11/02/24 11:05 11/02/24 11:05 11/02/24 11:05
Intake & Output
11/01/24 11/02/24 11/03/24
06:59 06:59 06:59
Intake Total 800 / 2480 1680 / 1680
Output Total 100 / 1400 1300 / 1300
Balance 700 / 1080 380 / 380
Intake:
Oral fluids 480 / 480
IV fluids (Total) 800 / 2000 1200 / 1200
Normosal 300 / 300
Output:
Urine, Saleem 100 / 1400 1300 / 1300
Lab Results
11/02/24 05:46
11/02/24 05:46
Physical Exam
-
General: No Acute Distress and AOx3
HEENT: Grossly Normal
Abdomen: Soft, Non Distended and Tender (Appropriately tender near ostomy wound)
Skin: Warm and Dry
Wound: Dressing in Place (Aquacel with strikethrough, stable)
[2024-11-02 15:00] VITALS: BP 121/66
[2024-11-02] MEDS: LOVENOX 40 MG SC (18:20)
[2024-11-02 23:00] VITALS: BP 123/78
[2024-11-03] MEDS: TORADOL 15 MG IV ×3 (00:41→12:08)
[2024-11-03] MEDS: TYLENOL 650 MG PO ×4 (00:41→15:32)
[2024-11-03] MEDS: TYLENOL PO (05:03)
[2024-11-03] MEDS: SYNTHROID 100 MCG PO (05:51)
[2024-11-03 05:58] VITALS: BMI 26.5
[2024-11-03 06:24] LABS: Hematocrit 35.7 % (39.0-52.0); Hemoglobin 12.0 g/dL (13.0-18.0); Mean Corp Hgb Conc. 33.6 g/dL (33.0-37.0); Mean Corpuscular Volume 82.1 fL (80.0-94.0); Platelet Count 170 10^3/uL (130-400); Red Cell Dist. Width 14.0 % (11.5-14.5)
[2024-11-03 06:42] LABS: Blood Urea Nitrogen 13 mg/dl (9-20); Calcium 8.2 mg/dl (8.4-10.2); Carbon Dioxide 23 mmol/L (22-30); Chloride 109 mmol/L (98-107); Estimated Creatinine Clearance 110 ml/min; Glucose 93 mg/dl (70-99); Magnesium 1.9 mg/dl (1.6-2.3); Potassium 3.9 mmol/L (3.5-5.1); Sodium 135 mmol/L (135-145); eGFR > 60.00
[2024-11-03 06:50] LABS: Absolute Neutrophils -Man Diff 5.4 10^3/uL (1.4-6.5); Anisocytosis 1+; Normal RBC Morphology No; Platelets Checked Yes; Smudge Cells Moderate; Total Cells Counted 100
[2024-11-03 07:05] VITALS: BP 123/75
[2024-11-03] MEDS: FLOMAX 0.4 MG PO (09:13)
[2024-11-03] MEDS: ASPIR LOW (ENTERIC COATED) 81 MG PO (09:13)
--- NOTE | 2024-11-03 12:22 | W.PN.GS2 ---
Addendum entered and electronically signed by Brenton Baum MD 11/03/24 12:32:
Patient seen and examined. Agree with assessment plan as documented below.
64-year-old male with PMH of paroxysmal A-fib (resolved, not on any AC), BPH, hypothyroidism (thyroid cancer s/p thyroid surgery), GERD, valvular disease s/p MVR/TVR on 07/24/2024, perforated diverticulitis s/p sigmoidectomy with DLI on 08/23/2024,
presents for elective surgery
POD 2 diverting loop ileostomy reversal
AFVSS
Labs stable, leukocytosis resolved
Recovering well. No postoperative concerns.
� Advance to low residue diet
� Continue DVT PPx with Lovenox
� Pain control with Tylenol, Toradol scheduled; Oxycodone and Dilaudid as needed
� Encourage OOB/IS
Tentative d/c later today vs tomorrow pending diet tolerance
Original Note:
Today's Communication / Plan
-
Advance diet
Assessment / Plan
-
64-year-old male with PMH of paroxysmal A-fib (resolved, not on any AC), BPH, hypothyroidism (thyroid cancer s/p thyroid surgery), GERD, valvular disease s/p MVR/TVR on 07/24/2024, perforated diverticulitis s/p sigmoidectomy with DLI on 08/23/2024,
presents for elective surgery
POD 2 diverting loop ileostomy reversal
AFVSS
Labs stable, leukocytosis resolved
� Advance to low residue diet
� Continue DVT PPx with Lovenox
� Pain control with Tylenol, Toradol scheduled; Oxycodone and Dilaudid as needed
� Encourage OOB/IS
Tentative d/c later today vs tomorrow pending diet tolerance
Subjective Data
-
Date of Service: November 03, 2024
Patient seen and examined at bedside with Dr. Baum. Denies n/v. Toleraing liquids. Pain minimal. Passing flatus. One loose stool. No bleeding.
Objective Data
-
Intake and Output
11/02/24 11/03/24 11/04/24
06:59 06:59 06:59
Intake Total 800 / 2480 4740 / 4740 180 / 180
Output Total 100 / 1400 2250 / 2250
Balance 700 / 1080 2490 / 2490 180 / 180
Intake:
Oral fluids 1440 / 1440 180 / 180
IV fluids (Total) 800 / 2000 3300 / 3300
Normosal 300 / 300
Output:
Urine, Gore 100 / 1400 1850 / 1850
Urine, Voided 400 / 400
Other:
Number of approximated MODERATE 1
amounts of urine
Vital Signs
Temp Pulse Resp BP Pulse Ox
98.7 F 62 16 123/75 96
11/03/24 07:05 11/03/24 07:05 11/03/24 07:05 11/03/24 07:05 11/03/24 07:05
Lab Results
11/03/24 05:12
11/03/24 05:12
Calcium 8.2 mg/dl (8.4-10.2) L 11/03/24 05:12
Magnesium 1.9 mg/dl (1.6-2.3) 11/03/24 05:12
Total Bilirubin 0.6 mg/dl (0.2-1.3) 10/29/24 06:55
AST 26 U/L (17-59) 10/29/24 06:55
ALT 48 U/L (0-50) 10/29/24 06:55
Alkaline Phosphatase 75 U/L (38-126) 10/29/24 06:55
Total Protein 7.4 g/dl (6.3-8.2) 10/29/24 06:55
Albumin 4.2 g/dl (3.5-5.0) 10/29/24 06:55
Physical Exam
-
NAD
ABD soft, expected tenderness, ND
Incision to prior stoma site with intact marilee, chilango removed, dressing changed
Patient has a gore catheter: No
Patient has a central line: No
[2024-11-03 15:10] VITALS: BP 145/89
--- NOTE | 2024-11-03 15:44 | W.DS.TRANS ---
Addendum entered and electronically signed by MEDINA Sandoval 11/05/24 15:13:
dictated #[id number]
Original Note:
DC Summary - Cott[employer] Super[employer]
-
Discharge Instructions:
Sleep Apnea Risk Low
Discharge Diagnosis/Procedures Loop ileostomy takedown
Diet Low Residue
Activity No strenuous activity
Additional Activity No lifting over 10lbs (gallon of milk)
Driving Restrictions No driving for 1 week
Bathing Restrictions OK to Shower
Wound Care Cover incision with gauze and paper tape. Change
daily and as needed. Okay to leave open to air
to shower. Say will be removed at your post
op appointment.
Instructions: Low-fiber diet
Stand-Alone Forms:
Changes to Home Medications: No
Discharge Medications:
DC Medications w/original date entered in [facility]
levothyroxine 100 mcg tablet (Synthroid) 100 mcg PO DAILY Thyroid 01/30/10
aspirin 81 mg tablet,delayed release 81 mg PO DAILY Blood Clot Prevention/Tx 03/30/23
tamsulosin 0.4 mg capsule (Flomax) 0.4 mg PO DAILY Urinary Issue 08/17/24
oxycodone 5 mg tablet 5 mg PO Q4HPRN PRN breakthrough/severe pain #15 tabs 11/03/24
Home Medication Changes
Pending Results: No
--- NOTE | 2024-11-03 15:50 | CM ---
Chart reviewed home when stable, no needs.
Plan; Home no needs
== END 2024-11-03 16:27 | disposition home or self-care (01) | DRG 331 ==
LOC: 2 SOUTH 07:29
PROVIDERS: Physician Assistant; Surgery; ADMITTING PHYSICIAN Surgery; FAMILY PHYSICIAN Family Medicine
PROC: 0DBB0ZZ Excision of Ileum, Open Approach (ICD-10-PCS; 2024-11-01)
DX: Z43.2 Encounter for attention to ileostomy (principal)
CPT/HCPCS: 36415; 80048; 80053; 83036; 83735; 85025; 85027; 85610; 85730; 86850; 86900; 86901; 88304; 93005; 97161; J1335

== ENCOUNTER → 2025-03-14 08:06 | Outpatient (REF) | payer OTHER, SELFPAY | LOC: HWRCS 08:06 | PROVIDERS: ATTENDING PHYSICIAN Nurse Practitioner Acute Care | DX: Z98.890 Other specified postprocedural states (principal) | CPT/HCPCS: 93306 ==